=== PATIENT | female | born 1995 | race Caucasian/White ===

== ENCOUNTER 2016-08-20 03:03 | Emergency (ER) | payer OTHER ==
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
[2016-08-20] MEDS ORDERED: ACETAMINOPHEN ORAL SUSP 160 MG/5 ML CUP PO ONE (09:23)
[2016-08-20 12:49] VITALS: BP 124/64; PULSE 109; RESP 16; TEMP 98.1
== END 2016-08-20 12:49 | disposition home or self-care (01) ==
LOC: EC 03:03
DX: S62.660A Nondisplaced fracture of distal phalanx of right index finger, initial encounter for closed fracture (principal); F43.20 Adjustment disorder, unspecified; F32.9 Major depressive disorder, single episode, unspecified; W23.0XXA Caught, crushed, jammed, or pinched between moving objects, initial encounter; F41.9 Anxiety disorder, unspecified; Z79.51 Long term (current) use of inhaled steroids; Z79.3 Long term (current) use of hormonal contraceptives; Z79.899 Other long term (current) drug therapy
CPT/HCPCS: 80306; 81025; 82075; 99285

== ENCOUNTER 2017-10-04 08:26 | Emergency (ER) | payer OTHER ==
[2017-10-04 08:36] VITALS: RESP 20; TEMP 98.8
[2017-10-04] MEDS ORDERED: RX INFO: IV CONTRAST WAS GIVEN 1 EACH MISC MISCELLANE PRN (09:04)
[2017-10-04 09:39] LABS: ALT 23 U/L (9-52); AST 25 U/L (14-36); Albumin 3.8 g/dL (3.5-5.0); Alkaline Phosphatase 73 U/L (38-126); Anion Gap 12 mmol/L; Blood Urea Nitrogen 10 mg/dL (7-17); Calcium 9.3 mg/dL (8.4-10.2); Carbon Dioxide 23 mmol/L (22-30); Chloride 107 mmol/L (98-107); Glucose 95 mg/dL (74-99); Potassium 3.5 mmol/L (3.5-5.1); Sodium 142 mmol/L (137-145); Total Bilirubin 0.9 mg/dL (0.2-1.3); Total Protein 6.2 g/dL (6.3-8.2)
[2017-10-04 09:43] LABS: Basophils % (A) 1 %; Eosinophils # (A) 0.1 k/uL (0-0.7); Eosinophils % (A) 2 %; HCT 39.4 % (34.0-46.0); HGB 14.6 gm/dL (11.4-16.0); Hyperchromasia Slight; Lymphocytes # (A) 3.6 k/uL (1.0-4.8); Lymphocytes % (A) 47 %; MCH 31.2 pg (25.0-35.0); MCHC 37.1 g/dL (31.0-37.0); MCV 84.1 fL (80.0-100.0); Mean Platelet Volume 8.2; Monocytes # (A) 0.4 k/uL (0-1.0); Monocytes % (A) 6 %; Neutrophils # (A) 3.3 k/uL (1.3-7.7); Neutrophils % (A) 43 %; Platelet Count 258 k/uL (150-450); RBC 4.68 m/uL (3.80-5.40); RDW 11.8 % (11.5-15.5); WBC 7.6 k/uL (3.8-10.6)
[2017-10-04 09:44] LABS: Appearance,Urine Clear (Clear); Bilirubin,Urine Negative (Negative); Blood,Urine Negative (Negative); Color,Urine Light Yellow; Glucose,Urine (UA) Negative (Negative); Ketones,Urine Negative (Negative); Leukocyte Esterase,Urine Trace (Negative); Mucus,Urine Rare /hpf; Nitrite,Urine Negative (Negative); PH, Urine 6.5 (5.0-8.0); Protein,Urine Negative (Negative); RBC,Urine 1 /hpf (0-5); Specific Gravity,Urine 1.014 (1.001-1.035); Squamous Epithelial Cell,Urine 1 /hpf (0-4); WBC,Urine 1 /hpf (0-5)
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
[2017-10-04 11:16] VITALS: BP 123/75; PULSE 89
== END 2017-10-04 11:16 | disposition home or self-care (01) ==
LOC: EC 08:26
DX: R07.89 Other chest pain (principal); R10.32 Left lower quadrant pain; Z79.899 Other long term (current) drug therapy; V47.5XXA Car driver injured in collision with fixed or stationary object in traffic accident, initial encounter; Y92.410 Unspecified street and highway as the place of occurrence of the external cause
CPT/HCPCS: 36415; 93005; 80053; 85025; 81001; 81025; 71260; 74177; 99284; Q9967

== ENCOUNTER 2018-08-04 16:21 | Emergency (ER) | payer OTHER ==
[2018-08-04] MEDS ORDERED: SODIUM CHLORIDE 0.9% 1,000 ML IV STA (16:57)
[2018-08-04 17:20] LABS: Basophils % (A) 0 %; Eosinophils # (A) 0.1 k/uL (0-0.7); Eosinophils % (A) 1 %; HCT 42.6 % (34.0-46.0); HGB 14.6 gm/dL (11.4-16.0); Lymphocytes # (A) 2.1 k/uL (1.0-4.8); Lymphocytes % (A) 29 %; MCH 30.7 pg (25.0-35.0); MCHC 34.3 g/dL (31.0-37.0); MCV 89.6 fL (80.0-100.0); Mean Platelet Volume 7.7; Monocytes # (A) 0.4 k/uL (0-1.0); Monocytes % (A) 5 %; Neutrophils # (A) 4.6 k/uL (1.3-7.7); Neutrophils % (A) 63 %; Platelet Count 249 k/uL (150-450); RBC 4.75 m/uL (3.80-5.40); RDW 12.7 % (11.5-15.5); WBC 7.3 k/uL (3.8-10.6)
[2018-08-04 17:36] LABS: ALT 25 U/L (9-52); AST 24 U/L (14-36); Albumin 4.3 g/dL (3.5-5.0); Alkaline Phosphatase 79 U/L (38-126); Amylase 46 U/L (30-110); Anion Gap 8 mmol/L; Blood Urea Nitrogen 10 mg/dL (7-17); Calcium 9.5 mg/dL (8.4-10.2); Carbon Dioxide 24 mmol/L (22-30); Chloride 105 mmol/L (98-107); Glucose 81 mg/dL (74-99); Lipase 66 U/L (23-300); Potassium 3.8 mmol/L (3.5-5.1); Sodium 137 mmol/L (137-145); Total Bilirubin 1.3 mg/dL (0.2-1.3); Total Protein 6.9 g/dL (6.3-8.2)
[2018-08-04 17:39] LABS: Appearance,Urine Clear (Clear); Bilirubin,Urine Negative (Negative); Blood,Urine Negative (Negative); Color,Urine Yellow; Glucose,Urine (UA) Negative (Negative); Ketones,Urine Trace (Negative); Leukocyte Esterase,Urine Trace (Negative); Mucus,Urine Few /hpf; Nitrite,Urine Negative (Negative); PH, Urine 6.5 (5.0-8.0); Protein,Urine Trace (Negative); Specific Gravity,Urine 1.021 (1.001-1.035); Squamous Epithelial Cell,Urine 2 /hpf (0-4); Urobilinogen,Urine <2.0 mg/dL (<2.0); WBC,Urine 1 /hpf (0-5)
--- NOTE | 2018-08-04 17:49 | ED ---
General Adult HPI - General Chief complaint: Abdominal Pain Stated complaint: rt sided abd pain Time Seen by Provider: 08/04/18 16:31 Source: patient, RN notes reviewed Mode of arrival: ambulatory Limitations: no limitations - History of Present Illness Initial comments: 23-year-old female presents to the emergency department or a chief complaint of lower abdominal pain times one week. Patient states this is mostly in the right lower quadrant. She states it is a sharp stabbing pain in nature that radiates into the abdomen. Patient states she did have 2 positive tests 2 months ago but since then has had negative tests. Patient denies any fevers or chills. Patient admits to nausea denies vomiting. Patient denies diarrhea. Patient states she is having normal bowel movements. Patient denies pain in the upper abdomen and states it is all in the right lower abdomen. Patient has no other complaints at this time including shortness of breath, chest pain, vomiting, headache, or visual changes. - Related Data Home Medications Medication Instructions Recorded Confirmed Dextroamphetamine/Amphetamine 20 mg PO TID 10/04/17 08/04/18 [Adderall] Ibuprofen [Motrin] 800 mg PO TID PRN 08/04/18 08/04/18 LORazepam [Ativan] 0.5 mg PO DAILY 08/04/18 08/04/18 Lurasidone [Latuda] 20 mg PO HS 08/04/18 08/04/18 Ondansetron HCl [Zofran] 8 mg PO TID PRN 08/04/18 08/04/18 Previous Rx's Medication Instructions Recorded Ondansetron [Zofran ODT] 4 mg PO Q8HR PRN #15 tab 08/04/18 Allergies Allergy/AdvReac Type Severity Reaction Status Date / Time No Known Allergies Allergy Verified 08/04/18 16:36 Review of Systems ROS Statement: Those systems with pertinent positive or pertinent negative responses have been documented in the HPI. ROS Other: All systems not noted in ROS Statement are negative. Past Medical History Past Medical History: No Reported History History of Any Multi-Drug Resistant Organisms: None Reported Additional Past Surgical History / Comment(s): orthopedic surgery on right foot Past Psychological History: Anxiety, Depression, PTSD Smoking Status: Never smoker Past Alcohol Use History: Occasional Past Drug Use History: None Reported General Exam Limitations: no limitations General appearance: alert, in no apparent distress Head exam: Present: atraumatic, normocephalic, normal inspection Eye exam: Present: normal appearance, PERRL, EOMI. Absent: scleral icterus, conjunctival injection, periorbital swelling ENT exam: Present: normal exam, mucous membranes moist Neck exam: Present: normal inspection, full ROM. Absent: tenderness, meningismus, lymphadenopathy Respiratory exam: Present: normal lung sounds bilaterally. Absent: respiratory distress, wheezes, rales, rhonchi, stridor Cardiovascular Exam: Present: regular rate, normal rhythm, normal heart sounds. Absent: systolic murmur, diastolic murmur, rubs, gallop, clicks GI/Abdominal exam: Present: soft, tenderness (Tenderness noted to the right lower quadrant, no guarding or rebound. No significant tenderness in the left lower quadrant or right upper quadrant, negative Driscoll sign), normal bowel sounds. Absent: distended, guarding, rebound, rigid External exam: Present: normal external exam. Absent: erythema, swelling, lesions, lacerations, ecchymosis Speculum exam: Present: normal speculum exam. Absent: erythema, vaginal discharge, cervical discharge, vaginal bleeding, foreign body By manual exam: Present: adnexal tenderness (minimal right adnexal tenderness). Absent: normal by manual exam, adnexal mass, uterine enlargement, uterine tenderness Neurological exam: Present: alert, oriented X3, CN II-XII intact Psychiatric exam: Present: normal affect, normal mood Course Vital Signs 08/04/18 08/04/18 16:24 18:18 Temperature 97.9 F 99.5 F Pulse Rate 95 105 H Respiratory 16 18 Rate Blood Pressure 153/86 132/86 O2 Sat by Pulse 99 99 Oximetry Medical Decision Making - Medical Decision Making 23-year-old female without any significant past medical history presents to the emergency department for right lower quadrant pain. Patient was sent in by primary care for evaluation. On exam patient has tenderness in the right lower quadrant without guarding. No right upper quadrant tenderness, negative Driscoll sign. Minimal left lower quadrant tenderness, negative Rovsing sign. Pelvic exam was done as I was unable to localize whether this was pelvic or abdominal pain as it is right lower quadrant. Patient did have some right adnexal tenderness so ultrasound was ordered which showed no adnexal mass or free fluid. No evidence of ovarian torsion. Gonorrhea and Chlamydia as well as Trichomonas were swabbed, currently pending. CBC CMP are unremarkable. HCG negative both quantitative and qualitative. Urine does not show any significant evidence of infection. Computed tomography scan was then ordered at this time to evaluate for appendicitis which was negative. Discussed with patient that at this time she does not have an appendicitis but if symptoms worsen to return to the emergency department. Discussed following up with her primary care as well. On reevaluation patient is having much better, nausea has resolved and pain has subsided. Patient is feeling well enough to go home. - Lab Data Result diagrams: 08/04/18 17:05 08/04/18 17:05 Lab Results 08/04/18 08/04/18 08/04/18 Range/Units 17:05 17:05 17:05 WBC 7.3 (3.8-10.6) k/uL RBC 4.75 (3.80-5.40) m/uL Hgb 14.6 (11.4-16.0) gm/dL Hct 42.6 (34.0-46.0) % MCV 89.6 (80.0-100.0) fL MCH 30.7 (25.0-35.0) pg MCHC 34.3 (31.0-37.0) g/dL RDW 12.7 (11.5-15.5) % Plt Count 249 (150-450) k/uL Neutrophils % 63 % Lymphocytes % 29 % Monocytes % 5 % Eosinophils % 1 % Basophils % 0 % Neutrophils # 4.6 (1.3-7.7) k/uL Lymphocytes # 2.1 (1.0-4.8) k/uL Monocytes # 0.4 (0-1.0) k/uL Eosinophils # 0.1 (0-0.7) k/uL Basophils # 0.0 (0-0.2) k/uL Sodium 137 (137-145) mmol/L Potassium 3.8 (3.5-5.1) mmol/L Chloride 105 (98-107) mmol/L Carbon Dioxide 24 (22-30) mmol/L Anion Gap 8 mmol/L BUN 10 (7-17) mg/dL Creatinine 0.63 (0.52-1.04) mg/dL Est GFR (CKD-EPI)AfAm >90 (>60 ml/min/1.73 sqM) Est GFR (CKD-EPI)NonAf >90 (>60 ml/min/1.73 sqM) Glucose 81 (74-99) mg/dL Calcium 9.5 (8.4-10.2) mg/dL Total Bilirubin 1.3 (0.2-1.3) mg/dL AST 24 (14-36) U/L ALT 25 (9-52) U/L Alkaline Phosphatase 79 (38-126) U/L Total Protein 6.9 (6.3-8.2) g/dL Albumin 4.3 (3.5-5.0) g/dL Amylase 46 (30-110) U/L Lipase 66 (23-300) U/L HCG, Quant <2.4 mIU/mL Urine Color Urine Appearance (Clear) Urine pH (5.0-8.0) Ur Specific [place] (1.001-1.035) Urine Protein (Negative) Urine Glucose (UA) (Negative) Urine Ketones (Negative) Urine Blood (Negative) Urine Nitrite (Negative) Urine Bilirubin (Negative) Urine Urobilinogen (<2.0) mg/dL Ur Leukocyte Esterase (Negative) Urine WBC (0-5) /hpf Ur Squamous Epith Cells (0-4) /hpf Urine Mucus (None) /hpf Urine HCG, Qual Not Detected (Not Detectd) Trichomonas Ag (Rapid) (Negative) 08/04/18 08/04/18 Range/Units 17:05 17:05 WBC (3.8-10.6) k/uL RBC (3.80-5.40) m/uL Hgb (11.4-16.0) gm/dL Hct (34.0-46.0) % MCV (80.0-100.0) fL MCH (25.0-35.0) pg MCHC (31.0-37.0) g/dL RDW (11.5-15.5) % Plt Count (150-450) k/uL Neutrophils % % Lymphocytes % % Monocytes % % Eosinophils % % Basophils % % Neutrophils # (1.3-7.7) k/uL Lymphocytes # (1.0-4.8) k/uL Monocytes # (0-1.0) k/uL Eosinophils # (0-0.7) k/uL Basophils # (0-0.2) k/uL Sodium (137-145) mmol/L Potassium (3.5-5.1) mmol/L Chloride (98-107) mmol/L Carbon Dioxide (22-30) mmol/L Anion Gap mmol/L BUN (7-17) mg/dL Creatinine (0.52-1.04) mg/dL Est GFR (CKD-EPI)AfAm (>60 ml/min/1.73 sqM) Est GFR (CKD-EPI)NonAf (>60 ml/min/1.73 sqM) Glucose (74-99) mg/dL Calcium (8.4-10.2) mg/dL Total Bilirubin (0.2-1.3) mg/dL AST (14-36) U/L ALT (9-52) U/L Alkaline Phosphatase (38-126) U/L Total Protein (6.3-8.2) g/dL Albumin (3.5-5.0) g/dL Amylase (30-110) U/L Lipase (23-300) U/L HCG, Quant mIU/mL Urine Color Yellow Urine Appearance Clear (Clear) Urine pH 6.5 (5.0-8.0) Ur Specific [place] 1.021 (1.001-1.035) Urine Protein Trace H (Negative) Urine Glucose (UA) Negative (Negative) Urine Ketones Trace H (Negative) Urine Blood Negative (Negative) Urine Nitrite Negative (Negative) Urine Bilirubin Negative (Negative) Urine Urobilinogen <2.0 (<2.0) mg/dL Ur Leukocyte Esterase Trace H (Negative) Urine WBC 1 (0-5) /hpf Ur Squamous Epith Cells 2 (0-4) /hpf Urine Mucus Few H (None) /hpf Urine HCG, Qual (Not Detectd) Trichomonas Ag (Rapid) Negative (Negative) Disposition Clinical Impression: Abdominal pain Disposition: HOME SELF-CARE Condition: Good Instructions (If sedation given, give patient instructions): Abdominal Pain (ED ) Additional Instructions: Please take Motrin and Tylenol for pain. Please follow-up with primary care in 1-2 days. Return here to the emergency department if you have any worsening symptoms Prescriptions: Ondansetron [Zofran ODT] 4 mg PO Q8HR PRN #15 tab PRN Reason: Nausea Is patient prescribed a controlled substance at d/c from ED?: No Referrals: Pamela Layton MD [Primary Care Provider] - 1-2 days Time of Disposition: 19:59
[2018-08-04 17:52] LABS: HCG,Quantitative Serum <2.4 mIU/mL
--- NOTE | 2018-08-04 18:04 | US ---
EXAMINATION TYPE: US transvaginal DATE OF EXAM: 08/04/2018 COMPARISON: CT CLINICAL HISTORY: Pain. RLQ pain TECHNIQUE: Transvaginal (TV). Date of LMP: 05/31/2018 EXAM MEASUREMENTS: Uterus: 6.6 x 2.3 x 3.5 cm Endometrial Stripe: 1.0 cm Right Ovary: 3.1 x 1.6 x 2.6 cm Left Ovary: 3.5 x 2.1 x 3.2 cm 1. Uterus: Anteverted wnl 2. Endometrium: measures 1.0 cm, patient has not had a cycle since May 2018 3. Right Ovary: wnl 4. Left Ovary: wnl Spectral, color and waveform doppler imaging shows good arterial and venous flow within the ovaries ; there is no evidence for ovarian torsion. 5. Bilateral Adnexa: wnl 6. Posterior cul-de-sac: no free fluid IMPRESSION: No adnexal mass or free fluid. No evidence of ovarian torsion.
[2018-08-04 18:19] VITALS: RESP 18
[2018-08-04] MEDS ORDERED: ONDANSETRON 4 MG/2 ML VIAL IVP STA (18:23)
[2018-08-04] MEDS ORDERED: KETOROLAC 30 MG/ML 1 ML VIAL IVP STA (18:23)
--- NOTE | 2018-08-04 18:51 | CT ---
EXAMINATION TYPE: CT abdomen pelvis w con DATE OF EXAM: 08/04/2018 COMPARISON: 10/04/2017 HISTORY: Right lower quadrant abdominal pain x1 week. CT DLP: 438.1 mGycm Automated exposure control for dose reduction was used. TECHNIQUE: Helical acquisition of images was performed from the lung bases through the pelvis. CONTRAST: Performed without Oral Contrast and with IV Contrast, patient injected with 100ml mL of Isovue 300. FINDINGS: Lung bases are clear. There is no pleural effusion. Heart size is normal. There is no pericardial eff usion. The stomach appears normal. Liver spleen pancreas gallbladder appear normal. Bile ducts are no t dilated. There is no adrenal mass. Kidneys have normal contrast opacification. There is no hydronep hrosis. Ureters are not dilated. Bladder distends smoothly. There is no inguinal hernia. There is no free fluid in the pelvis. Uterus is tilted to the left side. I see no pelvic mass. There is no mesenteric edema or adenopathy. Appendi x appears normal. Lumbar vertebra have normal spacing and alignment. Posterior elements are intact. The bony pelvis is intact. There is no compression fracture. IMPRESSION: NEGATIVE CT SCAN ABDOMEN AND PELVIS. NORMAL APPENDIX. APPENDIX IS MEDIAL AND POSTERIOR.
[2018-08-04] MEDS ORDERED: diphenhydrAMINE 50 MG/ML 1 ML VIAL IVP STA (19:14)
[2018-08-04] MEDS ORDERED: METOCLOPRAMIDE 5 MG/ML 2 ML VIAL IVP STA (19:14)
[2018-08-04 20:42] VITALS: BP 119/92; PULSE 101; TEMP 98.7
[2018-08-06 14:28] LABS: C. trachomatis,PCR Negative (Neg,Equiv); Chlamydia trachomatis Source Vagina
[2018-08-06 14:31] LABS: N. gonorrhoeae,PCR Negative (Neg,Equiv); Neisseria Source Vagina
== END 2018-08-04 20:41 | disposition home or self-care (01) ==
LOC: EC 16:21
DX: R10.31 Right lower quadrant pain (principal); R11.0 Nausea; Z32.02 Encounter for pregnancy test, result negative; F32.9 Major depressive disorder, single episode, unspecified; F41.9 Anxiety disorder, unspecified; Z79.899 Other long term (current) drug therapy
CPT/HCPCS: 99284; 96374; 96375 ×3; 96361; 36415; 80053; 82150; 83690; 85025; 81001; 81025; 84702; 87808; 87491; 87591; 93975; 76830; 74177; J1200; J2765; J2405; J1885; Q9967

== ENCOUNTER 2018-08-31 20:06 | Emergency (ER) | payer OTHER ==
[2018-08-31] MEDS ORDERED: SODIUM CHLORIDE 0.9% 500 ML 500 ML IV STA (20:56)
[2018-08-31] MEDS ORDERED: ONDANSETRON 4 MG/2 ML VIAL IVP STA (20:56)
--- NOTE | 2018-08-31 21:26 | ED ---
General Adult HPI - General Chief complaint: Headache Stated complaint: Nausea, headache Time Seen by Provider: 08/31/18 20:35 Source: patient, family, RN notes reviewed, old records reviewed Mode of arrival: ambulatory Limitations: no limitations - History of Present Illness Initial comments: Chief complaint and history of present illness a 23-year-old female who is coming here from work. The patient reports starting having a headache about 3 hours ago. She states that she had low-grade fever at home and just generally doesn't feel well. She describes as a pressure for the back of her head. Mild meningeal irritation when she flexes her neck. No significant increased with full meningeal stretching when she curls up into a ball. Mild nausea no vomiting. Patient denies being . We did discuss viral meningitis etc. patient will receive IV Rocephin 2 g. Due to her complaints a LP was explained and the patient agrees to it. - Related Data Home Medications Medication Instructions Recorded Confirmed Dextroamphetamine/Amphetamine 20 mg PO TID 10/04/17 08/31/18 [Adderall] Ibuprofen [Motrin] 800 mg PO TID PRN 08/04/18 08/31/18 LORazepam [Ativan] 0.5 mg PO DAILY 08/04/18 08/31/18 Lurasidone [Latuda] 20 mg PO HS 08/04/18 08/31/18 Aspirin 325 mg PO DAILY PRN 08/31/18 08/31/18 Ranitidine HCl [Zantac] 150 mg PO BID PRN 08/31/18 08/31/18 Previous Rx's Medication Instructions Recorded Ondansetron [Zofran ODT] 4 mg PO Q8HR PRN #15 tab 08/04/18 Allergies Allergy/AdvReac Type Severity Reaction Status Date / Time No Known Allergies Allergy Verified 08/31/18 20:56 Review of Systems ROS Statement: Those systems with pertinent positive or pertinent negative responses have been documented in the HPI. Review of systems. Patient complains of a pressure to the back of her head and goes up to the top of her head. No photophobia. Mild discomfort with neck flexion. No chest pain shortness breath is complaining nausea no vomiting has had soft stool. No rashes. Denies any injuries. No sickaroundher.Allsystemsreviewed.No Pastmedicalproblemspersonalitydisorder.Otherwisenoothermedicalproblem.Shehadfoot surgery.Familyhistoryagrandmotherhadbladdercancer.PatientdeniesALLERGIES.Nonsmok er.Drinksalcoholsocially.Shedidgetaflushotlately. ROS Other: All systems not noted in ROS Statement are negative. Past Medical History Past Medical History: No Reported History Additional Past Medical History / Comment(s): personality disorder History of Any Multi-Drug Resistant Organisms: None Reported Past Surgical History: Orthopedic Surgery Additional Past Surgical History / Comment(s): orthopedic surgery on right foot Past Psychological History: ADD/ADHD, Anxiety, Depression, PTSD Smoking Status: Never smoker Past Alcohol Use History: Occasional Past Drug Use History: None Reported General Exam - General Exam Comments Initial Comments: General: The patient is awake and alert, here because of a low-grade temperature earlier today and a posterior headache that feels like pressure. Also complaining of nausea but no vomiting. Vital signs temperature 97.8 pulse 86 respiratory rate 15 pulse ox on percent room air blood pressure 146/95 l. Eye: Pupils are equal, round and reactive to light, extra-ocular movements are intact ; there is normal conjunctiva bilaterally. No signs of icterus. Ears, nose, mouth and throat: There are moist mucous membranes and no oral lesions. Neck: Patient complains of discomfort to the posterior scalp and to the upper nape of her neck. She reports with chin to chest that the discomfort slightly worse.. Cardiovascular: There is a regular rate and rhythm. No murmur, rub or gallop is appreciated. Respiratory: Lungs are clear to auscultation, respirations are non-labored, breath sounds are equal. No wheezes, stridor, rales, or rhonchi. Gastrointestinal: Soft, non-distended, non-tender abdomen without masses or organomegaly noted. There is no rebound or guarding present. No CVA tenderness. Bowel sounds are unremarkable. Back: There is no tenderness to palpation in the midline. There is no obvious deformity. No rashes noted. Musculoskeletal: Normal ROM, no tenderness, There is no pedal edema. There is no calf tenderness or swelling. Sensation intact. Pulses equal bilaterally 2+. Neurological: CN II-XII intact, There are no obvious motor or sensory deficits. Coordination appears grossly intact. Speech is normal. No focal or lateralizing findings. Skin: Skin is warm and dry and no rashes or lesions are noted. Psychiatric: Past history significant for personality disorder, as reported on previous chart. Limitations: no limitations Course Vital Signs 08/31/18 08/31/18 08/31/18 20:13 23:04 23:27 Temperature 97.8 F Pulse Rate 86 88 77 Respiratory 15 20 20 Rate Blood Pressure 146/95 123/56 118/83 O2 Sat by Pulse 100 99 99 Oximetry Procedures - Lumbar Puncture Consent Obtained: written consent Indication for Procedure: headache, fever work up Patient Position: sitting upright/leaning forward Skin Prep: Povidone-Iodine 1%, 0.5% Chlorhexidine/Alcohol Local Anesthetic Used: Lidocaine 1% Spinal Needle Gauge: 22G Spinal Needle Length: 1.5in Interspace Used: L4-L5 Fluid Initially Obtained: clear Complications: none Patient Tolerated Procedure: well, no complications Additional Comments: The first drop or 2 of the LP was slightly pink. The rest of the samples were clear. These were labeled tubes 1,2, Dr. Collins 3 and 4 and sent to the laboratory. Patient was then laid flat. Given IV Reglan. Continued hydration. Medical Decision Making - Medical Decision Making Medical decision making; is a 23-year-old female presents emergency room with a headache for 3 hours low-grade fever. Mild meningeal irritation with neck flexion. Denies any trauma. Mild nausea no vomiting. No other complaints this time. The patient's labs show white count of 7 hemoglobin 15 hematocrit of 46. Potassium 4.8. BUN 9 creatinine 0.7 with a GFR greater than 90. AST mildly elevated at 42. Urine test is negative. Patient had CAT scan of the brain which was reviewed by radiologist and the entire report was reviewed his final impression is unremarkable CT brain is read by Dr. Cortes. Patient agrees to do an LP because of her symptoms the possibility of a bleed versus meningitis. We discussed cranial bleed, viral and bacterial meningitis. The patient was started on Rocephin 2 g just several minutes prior to the LP being performed. Lumbar tap showed tube #4 to be clear in color 1 red 1 nucleated, glucose 47 protein 23. Gram stain reported by laboratory showing no organisms. The patient continues to rest IV hydration and IV Reglan and the patient's been laid flat for the past 25 minutes. At this time the patient will be allowed to rest for another hour. She will then be discharged home to the care of her significant other. The patient be placed on Zofran for nausea. Off work for the next 48 hours. Advised to follow -up with family physician and/or return to this emergency room as needed. - Lab Data Result diagrams: 08/31/18 21:35 08/31/18 21:35 Lab Results 08/31/18 08/31/18 08/31/18 Range/Units 21:30 21:35 21:35 WBC 7.7 (3.8-10.6) k/uL RBC 5.09 (3.80-5.40) m/uL Hgb 15.9 (11.4-16.0) gm/dL Hct 46.6 H (34.0-46.0) % MCV 91.6 (80.0-100.0) fL MCH 31.2 (25.0-35.0) pg MCHC 34.0 (31.0-37.0) g/dL RDW 12.7 (11.5-15.5) % Plt Count 204 (150-450) k/uL Neutrophils % 75 % Lymphocytes % 19 % Monocytes % 3 % Eosinophils % 1 % Basophils % 1 % Neutrophils # 5.8 (1.3-7.7) k/uL Lymphocytes # 1.5 (1.0-4.8) k/uL Monocytes # 0.3 (0-1.0) k/uL Eosinophils # 0.1 (0-0.7) k/uL Basophils # 0.0 (0-0.2) k/uL Sodium 139 (137-145) mmol/L Potassium 4.8 (3.5-5.1) mmol/L Chloride 105 (98-107) mmol/L Carbon Dioxide 22 (22-30) mmol/L Anion Gap 12 mmol/L BUN 9 (7-17) mg/dL Creatinine 0.71 (0.52-1.04) mg/dL Est GFR (CKD-EPI)AfAm >90 (>60 ml/min/1.73 sqM) Est GFR (CKD-EPI)NonAf >90 (>60 ml/min/1.73 sqM) Glucose 74 (74-99) mg/dL Calcium 10.0 (8.4-10.2) mg/dL Total Bilirubin 1.2 (0.2-1.3) mg/dL AST 42 H (14-36) U/L ALT 27 (9-52) U/L Alkaline Phosphatase 92 (38-126) U/L Total Protein 8.5 H (6.3-8.2) g/dL Albumin 5.2 H (3.5-5.0) g/dL Urine HCG, Qual Not Detected (Not Detectd) CSF Tube Number CSF Volume CSF Appearance CSF Color CSF RBC (0-10) u/L CSF Tot Nucleated Cells (0-5) u/L CSF Glucose (40-70) mg/dL CSF Total Protein (12-60) mg/dL 08/31/18 Range/Units 22:50 WBC (3.8-10.6) k/uL RBC (3.80-5.40) m/uL Hgb (11.4-16.0) gm/dL Hct (34.0-46.0) % MCV (80.0-100.0) fL MCH (25.0-35.0) pg MCHC (31.0-37.0) g/dL RDW (11.5-15.5) % Plt Count (150-450) k/uL Neutrophils % % Lymphocytes % % Monocytes % % Eosinophils % % Basophils % % Neutrophils # (1.3-7.7) k/uL Lymphocytes # (1.0-4.8) k/uL Monocytes # (0-1.0) k/uL Eosinophils # (0-0.7) k/uL Basophils # (0-0.2) k/uL Sodium (137-145) mmol/L Potassium (3.5-5.1) mmol/L Chloride (98-107) mmol/L Carbon Dioxide (22-30) mmol/L Anion Gap mmol/L BUN (7-17) mg/dL Creatinine (0.52-1.04) mg/dL Est GFR (CKD-EPI)AfAm (>60 ml/min/1.73 sqM) Est GFR (CKD-EPI)NonAf (>60 ml/min/1.73 sqM) Glucose (74-99) mg/dL Calcium (8.4-10.2) mg/dL Total Bilirubin (0.2-1.3) mg/dL AST (14-36) U/L ALT (9-52) U/L Alkaline Phosphatase (38-126) U/L Total Protein (6.3-8.2) g/dL Albumin (3.5-5.0) g/dL Urine HCG, Qual (Not Detectd) CSF Tube Number 4 CSF Volume 2 CSF Appearance Clear CSF Color Colorless CSF RBC 1 (0-10) u/L CSF Tot Nucleated Cells 1 (0-5) u/L CSF Glucose 47 (40-70) mg/dL CSF Total Protein 23 (12-60) mg/dL Disposition Clinical Impression: Head pain cephalgia Disposition: HOME SELF-CARE Condition: Fair Instructions (If sedation given, give patient instructions): Acute Headache (ED ) Is patient prescribed a controlled substance at d/c from ED?: No Referrals: Pamela Layton MD [Primary Care Provider] - 1-2 days Time of Disposition: 00:42
[2018-08-31 22:12] LABS: Basophils % (A) 1 %; Eosinophils # (A) 0.1 k/uL (0-0.7); Eosinophils % (A) 1 %; HCT 46.6 % (34.0-46.0); HGB 15.9 gm/dL (11.4-16.0); Lymphocytes # (A) 1.5 k/uL (1.0-4.8); Lymphocytes % (A) 19 %; MCH 31.2 pg (25.0-35.0); MCV 91.6 fL (80.0-100.0); Mean Platelet Volume 8.6; Monocytes # (A) 0.3 k/uL (0-1.0); Monocytes % (A) 3 %; Neutrophils # (A) 5.8 k/uL (1.3-7.7); Neutrophils % (A) 75 %; Platelet Count 204 k/uL (150-450); RBC 5.09 m/uL (3.80-5.40); RDW 12.7 % (11.5-15.5); WBC 7.7 k/uL (3.8-10.6)
[2018-08-31 22:23] LABS: ALT 27 U/L (9-52); AST 42 U/L (14-36); Albumin 5.2 g/dL (3.5-5.0); Alkaline Phosphatase 92 U/L (38-126); Anion Gap 12 mmol/L; Blood Urea Nitrogen 9 mg/dL (7-17); Carbon Dioxide 22 mmol/L (22-30); Chloride 105 mmol/L (98-107); Glucose 74 mg/dL (74-99); Sodium 139 mmol/L (137-145); Total Bilirubin 1.2 mg/dL (0.2-1.3); Total Protein 8.5 g/dL (6.3-8.2)
[2018-08-31 22:30] LABS: Potassium 4.8 mmol/L (3.5-5.1)
--- NOTE | 2018-08-31 22:43 | CT ---
EXAM: CT Head Without Intravenous Contrast CLINICAL HISTORY: Posterior headache TECHNIQUE: Axial computed tomography images of the head/brain without intravenous contrast. CTDI is 49.2 mGy and DLP is 1086.4 mGy-cm. This CT exam was performed using one or more of the following dose reduction techniques: automated exposure control, adjustment of the mA and/or kV according to patient size, and/or use of iterative reconstruction technique. COMPARISON: No relevant prior studies available. FINDINGS: Brain: Unremarkable. No hemorrhage. No significant white matter disease. No edema. Ventricles: Unremarkable. No ventriculomegaly. Bones/joints: Unremarkable. No acute fracture. Soft tissues: Unremarkable. Sinuses: Unremarkable as visualized. No acute sinusitis. Mastoid air cells: Unremarkable as visualized. No mastoid effusion. IMPRESSION: Unremarkable CT brain
[2018-08-31] MEDS ORDERED: METOCLOPRAMIDE 5 MG/ML 2 ML VIAL IVP STA (23:11)
[2018-08-31 23:52] LABS: Appearance,CSF Clear; CSF Tube Number 4
[2018-08-31 23:53] LABS: CSF Tube Volume 2; Nucleated Cells, CSF 1 u/L (0-5); Red Blood Cell,CSF 1 u/L (0-10)
[2018-08-31 23:54] LABS: Glucose,CSF 47 mg/dL (40-70); Total Protein,CSF 23 mg/dL (12-60)
[2018-09-01 01:43] VITALS: BP 118/91; PULSE 99; RESP 18; TEMP 99
== END 2018-09-01 01:42 | disposition home or self-care (01) ==
LOC: EC 20:06
DX: R51 Headache (principal); R11.0 Nausea; R74.8 Abnormal levels of other serum enzymes; F60.9 Personality disorder, unspecified; F90.9 Attention-deficit hyperactivity disorder, unspecified type; F32.9 Major depressive disorder, single episode, unspecified; F43.10 Post-traumatic stress disorder, unspecified; Z79.899 Other long term (current) drug therapy
CPT/HCPCS: 36415; 84157; 80053; 82945; 85025; 89050; 81025; 87040; 87070; 87205; 70450; 99284; 96365; 96375 ×2; J2765; J2405; J0696

== ENCOUNTER 2018-09-02 22:06 | Observation (INO) | payer OTHER ==
[2018-09-02] MEDS ORDERED: diphenhydrAMINE 50 MG/ML 1 ML VIAL IVP STA (22:31)
[2018-09-02] MEDS ORDERED: SODIUM CHLORIDE 0.9% 1,000 ML IV ONE (22:31)
[2018-09-02] MEDS ORDERED: METOCLOPRAMIDE 5 MG/ML 2 ML VIAL IVP STA (22:31)
--- NOTE | 2018-09-02 22:37 | ED ---
General Adult HPI - General Chief complaint: Headache Stated complaint: head/neck pain Time Seen by Provider: 09/02/18 22:19 Source: patient Mode of arrival: ambulatory Limitations: no limitations - History of Present Illness Initial comments: 20-year-old female presenting with pressure-like occipital headache that began 3 days prior, has been accompanied by intermittent hand numbness, is radiating down towards her neck, and is not alleviated with anything. Patient states she was seen here on August [address] head and lumbar puncture both of which were negative for acute process. She states since then her pain has continued and is worsening. She has been taking Motrin 800 mg without relief. She denies vision changes. Denies trauma. Denies history of headaches or similar symptoms. - Related Data Home Medications Medication Instructions Recorded Confirmed Dextroamphetamine/Amphetamine 20 mg PO TID 10/04/17 08/31/18 [Adderall] Ibuprofen [Motrin] 800 mg PO TID PRN 08/04/18 08/31/18 LORazepam [Ativan] 0.5 mg PO DAILY 08/04/18 08/31/18 Lurasidone [Latuda] 20 mg PO HS 08/04/18 08/31/18 Aspirin 325 mg PO DAILY PRN 08/31/18 08/31/18 Ranitidine HCl [Zantac] 150 mg PO BID PRN 08/31/18 08/31/18 Previous Rx's Medication Instructions Recorded Ondansetron [Zofran ODT] 4 mg PO Q8HR PRN #15 tab 08/04/18 Ondansetron Odt [Zofran ODT] 4 mg PO Q8HR PRN #5 tab 09/01/18 Allergies Allergy/AdvReac Type Severity Reaction Status Date / Time No Known Allergies Allergy Verified 08/31/18 20:56 Review of Systems ROS Statement: Those systems with pertinent positive or pertinent negative responses have been documented in the HPI. Review of Systems Constitutional: Denies fever, chills Eyes: Denies change in vision, Denies pain Ears, nose, mouth, throat: Positive headaches, Denies sore throat Cardiovascular: Denies chest pain. Denies palpitations Respiratory: Denies shortness of breath, Denies cough Gastrointestinal: Denies abdominal pain. Denies nausea, vomiting, diarrhea. Genitourinary: Denies hematuria, Denies infections Musculoskeletal: Denies pain, Denies swelling Integumentary: Denies rash Neurological: Positive headache, Denies focal weakness, Positive hand numbness Psychiatric: Denies anxiety, Denies depression Hematologic/Lymphatic: Denies easy bleeding or bruising ROS Other: All systems not noted in ROS Statement are negative. Past Medical History Past Medical History: No Reported History Additional Past Medical History / Comment(s): personality disorder History of Any Multi-Drug Resistant Organisms: None Reported Past Surgical History: Orthopedic Surgery Additional Past Surgical History / Comment(s): orthopedic surgery on right foot Past Psychological History: ADD/ADHD, Anxiety, Depression, PTSD Smoking Status: Never smoker Past Alcohol Use History: Occasional Past Drug Use History: None Reported General Exam - General Exam Comments Initial Comments: General: Awake, alert, No acute Distress. Tearful. HENT: Normocephalic. Atraumatic Eyes: PERRL. EOMI. No scleral icterus. No injected conjunctiva Neck: tenderness to midline cervical spine. No hypertonicity. Pain exacerbated by any ROM. Chest/Lungs: Clear to auscultation bilaterally. No wheezing, rhonchi, or rales Cardiac: Regular rate, rhythm. No murmurs or rubs Abdomen/GI: Soft, nontender, nondistended. No rebound, guarding, or rigidity. Musculoskeletal: Full ROM Skin: Warm, dry, intact Neurologic: A/Ox3, no weakness, no sensory deficit, no abnormal gait, no coordination deficit. C5-t1 sensation intact bilaterally. 5/5 strenghth in BUE Limitations: no limitations Course Vital Signs 09/02/18 22:08 Temperature 98.0 F Pulse Rate 98 Respiratory 16 Rate Blood Pressure 139/98 O2 Sat by Pulse 100 Oximetry Medical Decision Making - Medical Decision Making 23-year-old female presenting with headache and neck pain. Initial exam the patient is awake alert and uncomfortable appearing. VSS. Patient was seen here on 09/[address] head and lumbar puncture which was negative for acute process. I reviewed her cultures which were also negative. The patient continues to have severe pain and states that she has been having intermittent numbness in her hands. On exam the patient has no hypertonicity insistent with a muscle spasm. She is neurologically intact on exam. She continues to have pain even after medications of been administered. This time the patient requires observation for MRI in the morning. I discussed this with patient was agreeable. She does have an umbilical piercing that will need to be removed prior to the x-ray but denies any history of claustrophobia or other metals. Patient is unable to swallow pills and therefore liquid medication has been ordered. - Lab Data Result diagrams: 09/02/18 22:45 09/02/18 22:45 Lab Results 09/02/18 09/02/18 09/02/18 Range/Units 22:45 22:45 22:45 WBC 5.8 (3.8-10.6) k/uL RBC 4.81 (3.80-5.40) m/uL Hgb 15.2 (11.4-16.0) gm/dL Hct 44.4 (34.0-46.0) % MCV 92.4 (80.0-100.0) fL MCH 31.6 (25.0-35.0) pg MCHC 34.2 (31.0-37.0) g/dL RDW 12.9 (11.5-15.5) % Plt Count 186 (150-450) k/uL Neutrophils % 63 % Lymphocytes % 28 % Monocytes % 6 % Eosinophils % 2 % Basophils % 1 % Neutrophils # 3.6 (1.3-7.7) k/uL Lymphocytes # 1.6 (1.0-4.8) k/uL Monocytes # 0.3 (0-1.0) k/uL Eosinophils # 0.1 (0-0.7) k/uL Basophils # 0.0 (0-0.2) k/uL Sodium 139 (137-145) mmol/L Potassium 4.0 (3.5-5.1) mmol/L Chloride 108 H (98-107) mmol/L Carbon Dioxide 24 (22-30) mmol/L Anion Gap 7 mmol/L BUN 6 L (7-17) mg/dL Creatinine 0.71 (0.52-1.04) mg/dL Est GFR (CKD-EPI)AfAm >90 (>60 ml/min/1.73 sqM) Est GFR (CKD-EPI)NonAf >90 (>60 ml/min/1.73 sqM) Glucose 88 (74-99) mg/dL Calcium 9.5 (8.4-10.2) mg/dL Urine HCG, Qual Not Detected (Not Detectd) Disposition Clinical Impression: Intractable pain, Intractable headache Disposition: ADMITTED IP TO THIS [facility] Referrals: Pamela Layton MD [Primary Care Provider] - 1-2 days Decision to Admit Reason: Admit from EC Decision Date: 09/03/18 Decision Time: 00:22
[2018-09-02 23:04] LABS: Basophils % (A) 1 %; Eosinophils # (A) 0.1 k/uL (0-0.7); Eosinophils % (A) 2 %; HCT 44.4 % (34.0-46.0); HGB 15.2 gm/dL (11.4-16.0); Lymphocytes # (A) 1.6 k/uL (1.0-4.8); Lymphocytes % (A) 28 %; MCH 31.6 pg (25.0-35.0); MCHC 34.2 g/dL (31.0-37.0); MCV 92.4 fL (80.0-100.0); Mean Platelet Volume 8.3; Monocytes # (A) 0.3 k/uL (0-1.0); Monocytes % (A) 6 %; Neutrophils # (A) 3.6 k/uL (1.3-7.7); Neutrophils % (A) 63 %; Platelet Count 186 k/uL (150-450); RBC 4.81 m/uL (3.80-5.40); RDW 12.9 % (11.5-15.5); WBC 5.8 k/uL (3.8-10.6)
[2018-09-02 23:14] LABS: Anion Gap 7 mmol/L; Blood Urea Nitrogen 6 mg/dL (7-17); Calcium 9.5 mg/dL (8.4-10.2); Carbon Dioxide 24 mmol/L (22-30); Chloride 108 mmol/L (98-107); Glucose 88 mg/dL (74-99); Sodium 139 mmol/L (137-145)
[2018-09-02] MEDS: ACETAMINOPHEN TAB 325 MG TAB PO STA ×2 (23:37→23:45)
[2018-09-02] MEDS ORDERED: ACETAMINOPHEN ORAL SUSP 160 MG/5 ML CUP PO ONE (23:41)
--- NOTE | 2018-09-02 23:59 | CT ---
EXAM: CT Cervical Spine Without Intravenous Contrast CLINICAL HISTORY: ITS.REASON CT Reason: Pain TECHNIQUE: Axial computed tomography images of the cervical spine without intravenous contrast. CTDI is 6.6 mGy and DLP is 179.9 mGy-cm. This CT exam was performed using one or more of the following dose reduction techniques: automated exposure control, adjustment of the mA and/or kV according to patient size, and/or use of iterative reconstruction technique. COMPARISON: No relevant prior studies available. FINDINGS: Vertebrae: Unremarkable. No acute fracture. Discs/spinal canal/neural foramina: No acute findings. No spinal canal stenosis. Soft tissues: Unremarkable. IMPRESSION: Normal cervical spine CT.
[2018-09-03] MEDS ORDERED: NALOXONE 0.4 MG/ML 1 ML VIAL IV PRN (00:09)
[2018-09-03] MEDS ORDERED: ACETAMINOPHEN ORAL SUSP 160 MG/5 ML CUP PO PRN (00:16)
[2018-09-03] MEDS: HYDROcodone/APAP 15 ML SOLUTION PO PRN ×2 (05:39→19:44)
[2018-09-03] MEDS: MORPHINE SULFATE 4 MG/ML SYRINGE IV PRN ×2 (08:09→16:58)
[2018-09-03] MEDS ORDERED: FAMOTIDINE 20 MG TAB PO PRN (14:51)
[2018-09-03] MEDS ORDERED: IBUPROFEN 800 MG TAB PO PRN (14:51)
[2018-09-03] MEDS ORDERED: CYCLOBENZAPRINE 5 MG TAB PO STA (14:54)
[2018-09-03] MEDS: KETOROLAC 30 MG/ML 1 ML VIAL IVP SCH ×2 (18:05→21:47)
[2018-09-03] MEDS: PATIENT'S OWN (Dextroamphetamine/Amphetamine [Adderall] 20 MG) PO SCH (19:46)
[2018-09-03] MEDS: LURASIDONE 20 MG TAB PO SCH (21:47)
--- NOTE | 2018-09-03 22:45 | P.HPIM ---
History of Present Illness H&P Date: 09/03/18 Chief Complaint: Neck pain Patient is a 23-year-old female with a known history of asthma, personality disorder, ADD/ADHD, anxiety/depression and PTSD came to ER with complaints of neck pain mainly in the lower part of the neck. Patient says that her symptoms began with headache about 3 days ago along with neck pain and intermittent numbness and tingling sensation along the right upper extremity. Pain was not relieved during last 2 days and patient came to ER for evaluation. Patient states she was seen here on August [address] head and lumbar puncture both of which were negative for acute process. She states since then her pain has continued and is worsening. She has been taking Motrin 800 mg without relief. She denies blurring of vision and photophobia. Denied lower extremity weakness or upper extremity weakness.. Denies trauma. Denies history of headaches . Patient says that her new job includes lifting heavy boxes. Otherwise denied any injury or muscle stretch recently. No fever no chills. No chest pain or shortness of breath. CT cervical spine was normal in the ER. MRI of the cervical spine was ordered. Review of Systems Constitutional: Patient denies any fever or chills . No generalized weakness or weight loss. Abdomen: Patient denied nausea vomiting and diarrhea and abdominal pain. Cardiovascular: Patient denies any chest pain or short of breath no palpitations. Respiratory: patient denied any cough is from production. No shortness of breath Neurologic: Patient denied any numbness or tingling headache. Musculoskeletal: Patient does have neck pain and intermittent tingling sensation along the right upper extremity. Skin: Negative Psychiatric: Negative Endocrine: No heat or cold intolerance. No recent weight gain. Genitourinary: No dysuria or hematuria. All other 14 point ROS negative except the above Past Medical History Past Medical History: Asthma Additional Past Medical History / Comment(s): personality disorder History of Any Multi-Drug Resistant Organisms: None Reported Past Surgical History: Orthopedic Surgery Additional Past Surgical History / Comment(s): orthopedic surgery on right foot Past Anesthesia/Blood Transfusion Reactions: No Reported Reaction Past Psychological History: ADD/ADHD, Anxiety, Depression, PTSD Additional Psychological History / Comment(s): borderline personality disorder Smoking Status: Never smoker Past Alcohol Use History: Occasional Past Drug Use History: None Reported - Past Family History Mother Family Medical History: Asthma Additional Family Medical History / Comment(s): ovarian cysts Father Family Medical History: Unable to Obtain Medications and Allergies Home Medications Medication Instructions Recorded Confirmed Type Dextroamphetamine/Amphetamine 20 mg PO TID 10/04/17 09/03/18 History [Adderall] Ibuprofen [Motrin] 800 mg PO TID PRN 08/04/18 09/03/18 History LORazepam [Ativan] 0.5 mg PO DAILY 08/04/18 09/03/18 History Lurasidone [Latuda] 20 mg PO HS 08/04/18 09/03/18 History Ranitidine HCl [Zantac] 150 mg PO BID PRN 08/31/18 09/03/18 History Ondansetron Odt [Zofran ODT] 4 mg PO Q8HR PRN #5 tab 09/01/18 09/03/18 Rx Levocetirizine Dihydrochloride 5 mg PO DAILY 09/03/18 09/03/18 History [Xyzal] Allergies Allergy/AdvReac Type Severity Reaction Status Date / Time No Known Allergies Allergy Verified 08/31/18 20:56 Physical Exam Vitals: Vital Signs Temp Pulse Pulse Resp BP BP Pulse Ox 09/03/18 07:00 98.0 F 90 17 134/96 100 09/03/18 01:00 98.3 F 85 14 116/81 99 09/03/18 00:37 98.2 F 91 14 112/82 100 09/02/18 22:08 98.0 F 98 16 139/98 100 Intake and Output 09/02/18 09/03/18 09/03/18 22:59 06:59 14:59 Intake Total 100 Balance 100 Intake: Oral 100 Other: Voiding Method Toilet Weight 42.184 kg PHYSICAL EXAMINATION: Patient is lying in the bed comfortably, no acute distress, awake alert and oriented.. HEENT: Normocephalic. Decreased neck movement due to pain.. Pupils reactive. Nostrils clear. Oral cavity is moist. Ears reveal no drainage. Neck reveals no JVD, carotid bruits, or thyromegaly. CHEST EXAMINATION: Trachea is central. Symmetrical expansion. Lung rodriguez clear to auscultation and percussion. CARDIAC: Normal S1, S2 with no gallops. No murmurs ABDOMEN: Soft. Bowel sounds normal. No organomegaly. No abdominal bruits. Extremities: reveal no edema. No clubbing or cyanosis Neurologically awake, alert, oriented x3 with well-coordinated movements. No focal deficits noted Skin: No rash or skin lesions. Psychiatric: Coperative. Nonsuicidal Musculoskeletal: No joint swelling or deformity. Normal range of motion. Results CBC & Chem 7: 09/02/18 22:45 09/02/18 22:45 Labs: Abnormal Lab Results - Last 24 Hours (Table) 09/02/18 Range/Units 22:45 Chloride 108 H (98-107) mmol/L BUN 6 L (7-17) mg/dL Thrombosis Risk Factor Assmnt - DVT/VTE Prophylaxis DVT/VTE Prophylaxis: Pharmacologic Prophylaxis ordered - Choose All That Apply Any of the Below Risk Factors Present?: No Other Risk Factors: No Other congenital or acquired thrombophilia - If yes, enter type in comment: No Thrombosis Risk Factor Assessment Level: Very Low Risk Assessment and Plan Assessment: Intractable neck pain with intermittent tingling sensation along right upper extremity rule out cervical spondylolisthesis History of depression/anxiety and PTSD History of ADD/ADHD History of asthma stable DVT prophylaxis Plan: Patient is a 23-year-old female admitted to the hospital with severe neck pain. Patient was initially seen at ER. Patient did have CT head and lumbar puncture was done at the time. CSF fluid analysis is negative. CSF fluid culture is pending at this time. CT cervical spine is normal. MRI of the cervical spine was ordered. Patient will be continued on Toradol IV and morphine and also one dose of Flexeril 5 mg was given. Continue with home medications. Continue with pain management and follow up MRI. Time with Patient: Greater than 30
[2018-09-04] MEDS: MORPHINE SULFATE 4 MG/ML SYRINGE IV PRN ×2 (00:21→06:46)
[2018-09-04] MEDS: KETOROLAC 30 MG/ML 1 ML VIAL IVP SCH ×3 (02:58→16:18)
[2018-09-04] MEDS: LORATADINE 10 MG TAB PO SCH (08:42)
[2018-09-04] MEDS: LORazepam 0.5 MG TAB PO SCH (08:42)
[2018-09-04] MEDS: PATIENT'S OWN (Dextroamphetamine/Amphetamine [Adderall] 20 MG) PO SCH ×3 (10:31→17:34)
[2018-09-04] MEDS: HYDROcodone/APAP 15 ML SOLUTION PO PRN ×2 (11:42→20:38)
--- NOTE | 2018-09-04 12:29 | MR ---
EXAMINATION TYPE: MR cervical spine wo con DATE OF EXAM: 09/04/2018 COMPARISON: CT cervical spine 09/02/2018 HISTORY: Intractable neck pain CONTRAST: Performed utilizing 0 mL intravenous Gadavist gadolinium contrast. TECHNIQUE: Multiplanar multiecho imaging on a 3.0 Blanca magnet is performed through the cervical spin e. FINDINGS: The craniovertebral junction is normal. Vertebral body alignment is normal. Craniovertebral junction is normal. Disc heights are preserved. Vertebral body heights are preserved. No focal disc herniation or significant disc bulge is evident. No spinal canal stenosis or neural fo raminal stenosis is present. Mild disc desiccation is present C3-4 C4-5. Signal through the spinal cord appears within normal limits. IMPRESSIONS: 1. No acute cervical spine abnormality.
[2018-09-04] MEDS: ONDANSETRON 4 MG/2 ML VIAL IVP PRN (16:03)
[2018-09-04] MEDS: LURASIDONE 20 MG TAB PO SCH (21:23)
[2018-09-04] MEDS ORDERED: ALPRAZolam 0.25 MG TAB PO PRN (23:17)
[2018-09-05] MEDS: MORPHINE SULFATE 4 MG/ML SYRINGE IV PRN ×4 (03:28→17:19)
--- NOTE | 2018-09-05 06:32 | PN ---
PROGRESS NOTE DATE OF SERVICE: 09/04/2018. This 23-year-old woman with a past medical history of multiple medical problems, admitted with intractable neck pain. The patient had a cervical spine MRI did not show any acute abnormalities. No chest pain or palpitation. No fever. PHYSICAL EXAMINATION: On exam, alert and oriented x3. Pulse is 89, blood pressure 110/76, respirations 16, temperature 98.1, pulse ox 99% on room air. HEENT: Conjunctivae normal. Oral mucosa moist. NECK: No jugular venous distention. No carotid bruit. No lymph node enlargement. CARDIOVASCULAR: S1, S2 muffled. RESPIRATORY: Breath sounds diminished at the bases. No rhonchi, no crackles. ABDOMEN: Soft, nontender. LEGS: No edema, no swelling. NERVOUS SYSTEM: No focal deficits. Extension neck movements slightly painful. LABS: CBC within normal limits. Sodium 139, potassium 4. ASSESSMENT: 1. Intractable neck pain possibly musculoskeletal. 2. No evidence of cervical spondylosis. 3. Depression, anxiety, posttraumatic stress disorder. 4. Attention deficit disorder, attention deficit hyperactivity disorder. 5. Asthma, stable. RECOMMENDATIONS AND DISCUSSION: Recommend to continue current medication, continue symptomatic treatment. Otherwise spinal surgery has been consulted. We will follow the patient closely. Otherwise, resume the home medications. Further recommendations to follow. MMODL / IJN: [id number] /
[2018-09-05] MEDS: PANTOPRAZOLE 40 MG TABLET PO SCH (07:23)
[2018-09-05] MEDS: PATIENT'S OWN (Dextroamphetamine/Amphetamine [Adderall] 20 MG) PO SCH ×3 (07:30→15:56)
[2018-09-05] MEDS: LORazepam 0.5 MG TAB PO SCH (08:23)
[2018-09-05] MEDS: LORATADINE 10 MG TAB PO SCH (08:23)
--- NOTE | 2018-09-05 13:03 | P.CNOR ---
History of Present Illness - [facility] Consult date: 09/05/18 Requesting physician: Daija Leo Consult reason: neck pain (Posterior cervical pain and occipital pain) History of present illness: Patient is a very pleasant 23-year-old female who is seen and examined at the bedside for further evaluation of her cervical spine. She states his past , 08/31/2018, she began to experience posterior cervical pain with pain radiating up the posterior cervical spine and over the top of her head. She denies any injuries. She presented to a [facility] emergency department for further evaluation. CT of the cervical spine was performed at that time which showed no significant findings. She was discharged. Her symptoms continued to worsen over the next couple days. She presented back to [facility] emergency department for further evaluation on 09/02/2018. Patient was admitted for further evaluation. MRI of the cervical spine was performed. She states her symptoms are better controlled since receiving morphine for pain control. She denies any upper extremity radiculopathy or weakness bilaterally. She states she has not experienced these symptoms previously. She states her symptoms are better controlled while lying in bed. Her neck pain is exacerbated during increased ambulation. She is eating and voiding without difficulty. Lumbar puncture was also performed at her previous appointment on 08/31/2018 negative for acute process. Past Medical History Past Medical History: Asthma Additional Past Medical History / Comment(s): personality disorder History of Any Multi-Drug Resistant Organisms: None Reported Past Surgical History: Orthopedic Surgery Additional Past Surgical History / Comment(s): orthopedic surgery on right foot Past Anesthesia/Blood Transfusion Reactions: No Reported Reaction Past Psychological History: ADD/ADHD, Anxiety, Depression, PTSD Additional Psychological History / Comment(s): borderline personality disorder Smoking Status: Never smoker Past Alcohol Use History: Occasional Past Drug Use History: None Reported - Past Family History Mother Family Medical History: Asthma Additional Family Medical History / Comment(s): ovarian cysts Father Family Medical History: Unable to Obtain Medications and Allergies Home Medications Medication Instructions Recorded Confirmed Type Dextroamphetamine/Amphetamine 20 mg PO TID 10/04/17 09/03/18 History [Adderall] Ibuprofen [Motrin] 800 mg PO TID PRN 08/04/18 09/03/18 History LORazepam [Ativan] 0.5 mg PO DAILY 08/04/18 09/03/18 History Lurasidone [Latuda] 20 mg PO HS 08/04/18 09/03/18 History Ranitidine HCl [Zantac] 150 mg PO BID PRN 08/31/18 09/03/18 History Ondansetron Odt [Zofran ODT] 4 mg PO Q8HR PRN #5 tab 09/01/18 09/03/18 Rx Levocetirizine Dihydrochloride 5 mg PO DAILY 09/03/18 09/03/18 History [Xyzal] Allergies Allergy/AdvReac Type Severity Reaction Status Date / Time No Known Allergies Allergy Verified 08/31/18 20:56 Physical Examination Physical exam: Patient is awake, alert, and oriented 3 Vital signs stable Good chest excursion with deep inspiration and expiration Examination of the cervical spine reveals skin is intact with no abrasions, lacerations, or bruises; no erythema, purulence or signs of infection Evidence of a tattoo over the right posterior shoulder at the scapula and over the left anterior forearm Mild pain with palpation over the posterior cervical spine and at the occiput Mild spasm over the trapezius bilaterally Full range of motion of the cervical spine with adequate flexion, extension, and bilateral rotation [employer] Supervisor strength, thumb strength, interosseous strength, biceps strength, triceps strength, and shoulder strength positive sustained bilaterally Upper extremity strength 5/5 bilaterally Biceps reflex 2+ bilaterally and Brachioradialis reflexes 2+ bilaterally No upper extremity hyperreflexia bilaterally Hoffmans sign negative upper extremity bilaterally Results Pertinent studies: MRI of the cervical spine performed on 09/04/2018: Overall alignment is adequately maintained; C3-4 and C4-5 disc desiccation; no evidence of significant herniated nucleus pulposis; no evidence of vertebral body compression fracture; no evidence of spinal canal stenosis or neural foraminal stenosis throughout cervical spine; spinal cord signal appears to be within normal limits; no acute cervical spine abnormality; no evidence of cervical instability CT of the cervical spine performed on 09/02/2018: Normal cervical spine CT; no evidence of fracture; no acute findings within the spinal canal; no evidence of spinal canal stenosis; soft tissues unremarkable - Labs Labs: H & H 09/02/18 Range/Units 22:45 Hgb 15.2 (11.4-16.0) gm/dL Hct 44.4 (34.0-46.0) % Result Diagrams: 09/02/18 22:45 09/02/18 22:45 Assessment and Plan Assessment: Assessment: Posterior cervical pain C3-4 and C4-5 disc desiccation Occipital headaches History of asthma, personality disorder, ADD/ADHD, anxiety/depression, and PTSD (1) Cervical pain Current Visit: Yes Status: Acute Code(s): M54.2 - CERVICALGIA SNOMED Code( s): 98355597 (2) Occipital headache Current Visit: Yes Status: Acute Code(s): R51 - HEADACHE SNOMED Code(s): 948625 (3) Desiccation of intervertebral disc Current Visit: Yes Status: Acute Code(s): ZSC8766 - SNOMED Code(s): 60567986 Plan: Plan: 1. After further examination of the patient, obtaining history from the patient , and reviewing of imaging, we are not currently planning for any surgical intervention or further evaluation in regards to the patient cervical spine. She has been experiencing posterior cervical spine pain radiating up the posterior cervical spine and over the top of the head. She denies any injuries. At the bedside today she currently denies any upper extremity weakness or radiculopathy bilaterally. Reviewing of imaging does not show any evidence of significant herniated nucleus pulposus. There are no evidence of cervical spinal canal stenosis or neural foraminal stenosis. No evidence of cervical instability. There are no indications for surgical intervention. Surgical intervention would most likely exacerbate her symptoms further and provided no relief of her symptoms. At this time we discussed she should exhaust all conservative treatment options and avoid surgical intervention of her cervical spine. We will plan to consult pain management for further evaluation and discuss possible treatment options. At this time, she is clear for discharge from an orthopedic spine standpoint. We will plan have her follow up on an outpatient basis only as needed. She may follow-up with Nguyễn Barone PA-C or Dr. Godwin Orozco at [facility]. 2. Continue pain control medications as prescribed by medicine 3. Patient will continue to be seen and examined by medicine 4. Consult will be placed with pain management for further evaluation discuss possible treatment options 5. Patient has been discussed in detail with Dr. Godwin Orozco and he agrees with this plan Time with Patient: Greater than 30 (Including obtaining history, physical examination, reviewing her imaging, and dictation.)
[2018-09-05] MEDS: HYDROcodone/APAP 15 ML SOLUTION PO PRN (14:49)
--- NOTE | 2018-09-05 15:13 | P.PAINCN ---
History of Present Illness - Reason for Consult Consult date: 09/05/18 - History of Present Illness This is a 23-year-old female, with a one-week history of severe neck pain and headache, the patient denies any initiating event , and she reported that the symptoms started last week, and she was admitted to [facility] with the emergency room, the CT of the brain was negative for any abnormalities, MRI of the cervical spine showed patient had disc desiccation cervical area, patient reported that her symptoms worsen with neck movement, and occasionally she had some numbness and tingling sensation in the upper extremities, she denies any motor or sensory deficit, patient had diagnostic lumbar puncture done previously and it was negative for any abnormalities, patient denies any change in her bowel movements or urination, and she reported that the headache radiates from the base of the skull to The top of the head. Past Medical History Past Medical History: Asthma Additional Past Medical History / Comment(s): personality disorder History of Any Multi-Drug Resistant Organisms: None Reported Past Surgical History: Orthopedic Surgery Additional Past Surgical History / Comment(s): orthopedic surgery on right foot Past Anesthesia/Blood Transfusion Reactions: No Reported Reaction Past Psychological History: ADD/ADHD, Anxiety, Depression, PTSD Additional Psychological History / Comment(s): borderline personality disorder Smoking Status: Never smoker Past Alcohol Use History: Occasional Past Drug Use History: None Reported - Past Family History Mother Family Medical History: Asthma Additional Family Medical History / Comment(s): ovarian cysts Father Family Medical History: Unable to Obtain Medications and Allergies Home Medications Medication Instructions Recorded Confirmed Type Dextroamphetamine/Amphetamine 20 mg PO TID 10/04/17 09/03/18 History [Adderall] Ibuprofen [Motrin] 800 mg PO TID PRN 08/04/18 09/03/18 History LORazepam [Ativan] 0.5 mg PO DAILY 08/04/18 09/03/18 History Lurasidone [Latuda] 20 mg PO HS 08/04/18 09/03/18 History Ranitidine HCl [Zantac] 150 mg PO BID PRN 08/31/18 09/03/18 History Ondansetron Odt [Zofran ODT] 4 mg PO Q8HR PRN #5 tab 09/01/18 09/03/18 Rx Levocetirizine Dihydrochloride 5 mg PO DAILY 09/03/18 09/03/18 History [Xyzal] Allergies Allergy/AdvReac Type Severity Reaction Status Date / Time No Known Allergies Allergy Verified 08/31/18 20:56 Physical Exam Vitals: Vital Signs Temp Pulse Resp BP Pulse Ox 09/05/18 07:00 98.5 F 87 15 114/72 09/04/18 23:00 98.5 F 96 16 112/76 98 09/04/18 15:15 98.1 F 89 16 110/76 99 Intake and Output 09/05/18 09/05/18 09/05/18 06:59 14:59 22:59 Intake Total 560 118 Balance 560 118 Intake: Oral 560 118 Other: Voiding Method Toilet Physical Examinations : -Constitutiona : Cooperative , not in acute distress . -HEENT : nech ; supple , no Lymphadenopathy , normal thyroid size . eyes : no ptosis , no icterus, no photophobia . ENT : normal of hearing , normal oropharynx , no Thrush . - Respiratory : Chest clear to auscultations Bilaterally , no wheezing , no Rhonchi . - Cardiovascula : regular rate and rhythem , S1 , S2 , no S3 , no S4. - Gastrointestina : abdomen soft no tenderness , bowel sounds , no organomegally . - Genitourinary : Defferred . - neurologic : Cranial nerve II to XII intact , no focal neurological deffecit . -psychatric : alert , oriented X 3 , appropriate affect , intact judgment and insight . -Lymphatic : no Lymphadenopathy . - musculoskeltal : Cervical Spine motor stregnth in the deltoid and biceps, normal right side , normal Left side motor stregnth biceps and the wrist extensors normal right side ,normal left side . motor stregnth in the triceps muscle . normal Right side , normal Left side deep tendon reflexes normal at the biceps , normal at Brachioradialis , normal at triceps. positive cervical facet loading test . Spurling test positive bilaterally. Neck distraction test positive bilaterally. Sincere sign positive bilaterally. Severe tenderness over the occipital nerves bilaterally more prominent on the right side Multiple trigger points in the cervical area and trapezius , rhomboid muscles. Results CBC & Chem 7: 09/02/18 22:45 09/02/18 22:45 Comments: MRI of the cervical spine= mild disc desiccation C34 , C 45 CT of the brain= negative for abnormalities Assessment and Plan Plan: Assessment and plan= cervicogenic headache, occipital neuralgia, myofascial pain syndrome, cervical disc desiccation Patient could benefit from cervical epidural steroid injections , and trigger point injections cervical area Procedure risk and benefits and alternatives discussed with the patient and she agreed with the preceding Time with Patient: Greater than 30 PQRS Measure Charge Sheet Measure #130: Documentation of Current Meds in Medical Chart: Patient's medications documented in chart Measure #226: Tobacco Use: Screen & Cessation Intervention: Pt not a tobacco user Measure #111: Pneumonia Vaccination: Pneumococcal vaccine NOT administered or previously given Measure #47: Advance Care Plan: Advance care planning discussed & documented, pt chose/unable to give Measure #412: Opioid Treatment Agreement: No documentation of signed opioid treatment agreement Measure #408: Opioid Therapy Follow-up Evaluation: Patient had NO f/u eval minimum every 3 months during opioid therapy Measure #317: Preventitive Care & Scrn High Bld Press & F/U: Normal blood pressure, f/u not required Measure #128: Body Mass Index (BMI) Screening & Follow-up: BMI documented within normal parameters Measure #131: Pain Assessment & Follow-up: Pain positive & plan documented, Follow-up scheduled Measure #431: Unhealthy Alcohol Use Preventative Care & Scrn: Patient not identified as an unhealthy alcohol user PQRS Narrative: Smoking Status Never smoker Do You Want the Pneumonia Vaccine Up to Date Vaccine AT THIS TIME? Blood Pressure [Right Arm 114/72 Supine] Blood Pressure 112/82 Pain Intensity [Neck] 2 Pain Intensity 8 Pain Scale Used Numeric (1 - 10) Scale Used Numeric (1 - 10) Home Medications: Ambulatory Orders Dextroamphetamine/Amphetamine [Adderall] 20 mg PO TID 10/04/17 Ibuprofen [Motrin] 800 mg PO TID PRN 08/04/18 LORazepam [Ativan] 0.5 mg PO DAILY 08/04/18 Lurasidone [Latuda] 20 mg PO HS 08/04/18 Ranitidine HCl [Zantac] 150 mg PO BID PRN 08/31/18 Ondansetron Odt [Zofran ODT] 4 mg PO Q8HR PRN #5 tab 09/01/18 Levocetirizine Dihydrochloride [Xyzal] 5 mg PO DAILY 09/03/18
--- NOTE | 2018-09-05 17:02 | P.PN ---
Subjective 23-year-old female admitted for severe neck pain and headache and found to have some mild disc desiccation at C3-C4 and C4-C5 levels, spinal surgery evaluated the patient and patient will undergo steroid injection to the cervical spine after that patient probably will be discharged patient will be started on Toradol for inflammation and radiculopathy. Patient pain is better but still has significant pain in the neck in the cervical spine area. Constitutional: Denied any fatigue denied any fever. Cardio vascular: denied any chest pain, palpitations Gastrointestinal denied any nausea vomiting Pulmonary: Denied any shortness of breath cough Neurologic denied any new focal deficits All inpatient medications were reviewed and appropriate changes in these medications as dictated in the interval history and assessment and plan. Objective - Vital Signs Vital signs: Vital Signs Temp 98.5 F 09/05/18 07:00 Pulse 87 09/05/18 07:00 Resp 15 09/05/18 07:00 BP 114/72 09/05/18 07:00 Pulse Ox 98 09/04/18 23:00 Intake & Output 09/04/18 09/05/18 09/05/18 18:59 06:59 18:59 Intake Total 840 918 Balance 840 918 Intake: Oral 840 918 Other: Voiding Method Toilet Toilet # Voids 3 - Exam PHYSICAL EXAMINATION: GENERAL: The patient is alert and oriented x3, not in any acute distress. Well developed, well nourished. HEENT: Pupils are round and equally reacting to light. EOMI. No scleral icterus. No conjunctival pallor. Normocephalic, atraumatic. No pharyngeal erythema. No thyromegaly. CARDIOVASCULAR: S1 and S2 present. No murmurs, rubs, or gallops. PULMONARY: Chest is clear to auscultation, no wheezing or crackles. ABDOMEN: Soft, nontender, nondistended, normoactive bowel sounds. No palpable organomegaly. MUSCULOSKELETAL: No joint swelling or deformity. EXTREMITIES: No cyanosis, clubbing, or pedal edema. NEUROLOGICAL: Gross neurological examination did not reveal any focal deficits. SKIN: No rashes. - Labs CBC & Chem 7: 09/02/18 22:45 09/02/18 22:45 Assessment and Plan Plan: cervical radiculopathy and cervical cephalalgia with some mild disc desiccation at C3-C4 and C4-C5 levels: Continue with anti-inflammatory medications as mentioned above patient will undergo steroid injection to the cervical spine area -depression -Attention deficit disorder Asthma without any acute exacerbation For above-mentioned chronic medical problems patient will be resumed and continued on appropriate home medications. We'll try to avoid opiate analgesia
[2018-09-05] MEDS: KETOROLAC 30 MG/ML 1 ML VIAL IVP PRN (19:40)
[2018-09-05] MEDS: ONDANSETRON 4 MG/2 ML VIAL IVP PRN (19:44)
[2018-09-05 20:37] VITALS: TEMP 97.6
[2018-09-05] MEDS: LURASIDONE 20 MG TAB PO SCH (20:37)
[2018-09-06] MEDS: KETOROLAC 30 MG/ML 1 ML VIAL IVP PRN (05:35)
[2018-09-06] MEDS ORDERED: SODIUM CHLORIDE 0.9% 500 ML 500 ML IV SCH (07:15)
[2018-09-06] MEDS: LORATADINE 10 MG TAB PO SCH (08:19)
[2018-09-06] MEDS: PATIENT'S OWN (Dextroamphetamine/Amphetamine [Adderall] 20 MG) PO SCH (08:19)
[2018-09-06] MEDS: LORazepam 0.5 MG TAB PO SCH (08:19)
[2018-09-06] MEDS: PANTOPRAZOLE 40 MG TABLET PO SCH (08:19)
[2018-09-06] MEDS ORDERED: LACTATED RINGERS 1,000 ML IV ONE (11:20)
[2018-09-06 11:29] LABS: Glucose,Whole Blood 84 mg/dL (75-99)
--- NOTE | 2018-09-06 12:05 | P.PCN ---
Date of Procedure: 09/06/18 Procedure(s) Performed: . PROCEDURE 1. Cervical epidural steroid injection under fluoroscopic guidance, C7-T1 2. Cervical epidurogram. 3-trigger point injections cervical paravertebral muscles ,2 on the right side ( trapezius and rhomboid muscles ),and 2 on the left side(left trapezius and left rhomboid muscles) PREOPERATIVE DIAGNOSIS: 1- Cervical Degenerative Disc Diseases 2- myofascial pain syndrome and cervical area 3-cervicogenic headache POSTOPERATIVE DIAGNOSIS: : Same as preoperative diagnosis ANESTHESIA: Local anesthesia with lidocaine 1 % , and moderate sedation, with Versed 1 mg and Fentanyl 50 mcg. EBL 0 PROCEDURE INDICATION: The patient with neck pain and and headache unresponsive to conservative treatment consents for procedure. In the preop holding area patient reported that, her headache increases significantly when she is sitting , and this could be secondary to post dural puncture headache, patient had diagnostic lumbar done a few days ago when she was admitted to the hospital, and this could be another contributing factor to her headache, PROCEDURE DESCRIPTION / TECHNIQUE: The patient was seen and identified in the preoperative area. Risks, benefits, complications, including but not limited to infections ,bleeding , allergic reactions to the medications ,and not complete pain releife, and alternatives were discussed with the patient, the patient agreed to proceed with the procedure and signed the consent. Patient was taken to the OR and time out was completed. The patient was placed in the prone position on the procedure table. A pillow was placed under the patients chest to increase the cervical interlaminar space. The cervical area was prepped and draped in the usual sterile fashion. Vital signs were closely monitored during the procedure. Conscious sedation was used during the procedure to decrease patients anxiety. Using anterior-posterior fluoroscopy, the C7-T1 interlaminar space was identified and the skin over this site was marked and then infiltrated with 1% lidocaine subcutaneously. Subsequently, a 20-gauge 3-1/2-inch Tuohy epidural needle was inserted and advanced toward the epidural space by means of the `` hanging-drop technique and guided by AP and lateral fluoroscopy. The correct needle position in the epidural space was verified with the injection of 2 mL of the water soluble contrast dye Isovue-200 and observing an excellent epidurogram with the epidural spread of the dye, after negative aspiration for blood and CSF and in the absence of paresthesias. Again after negative aspiration, mixture containing 20 mg Dexamethasone and 2 ml of preservative- free normal saline injected and a washout of epidurogram was seen. Needle was withdrawn intact. Then after that the trigger point which was marked in the preop holding area, 2 on the right side and right trapezius and right rhomboid muscles each one of them injected with bupivacaine 0.5% 2 ml injected at each trigger point injected using 25-gauge needle injection done after negative aspiration and there was no paresthesia during the injection , then I did a trigger point on the left side, 2 trigger points injected on the left side cervical paravertebral muscles left side trapezius and left-sided rhomboid muscles each one of them injected with bupivacaine 0.5% 2 mL injected at each trigger point using 25-gauge needle, injection done after negative aspiration and there was no paresthesia during the injection, patient tolerated the procedure well without any complications. Complications= none. Disposition= patient was placed in supine position and transferred to the recovery room area in stable condition and there was no evidence of upper or lower extremity motor or sensory deficit after the procedure patient was discharged from recovery room after discharge criteria met and home discharge instructions was given by the staff and patient will follow with the pain clinic in 2-4 weeks
[2018-09-06 12:12] VITALS: RESP 17
--- NOTE | 2018-09-06 13:20 | FL ---
Fluoroscopy HISTORY: Pain 2 seconds fluoroscopy time supplied to the referring clinician. 1 intraoperative C-arm images docume nt the procedure. See dictated report from anesthesia.
[2018-09-06 14:07] VITALS: BP 123/85; PULSE 82
--- NOTE | 2018-09-11 06:57 | P.DS ---
Providers Date of admission: 09/03/18 00:18 Expected date of discharge: 09/06/18 Attending physician: MD Dr. Ezio Phillips Consults: 09/04/18 22:25 Consult Physician Routine Consulting Provider: Cristina Orozco Consult Reason/Comments: Neck Pain Do you want consulting provider notified?: Yes 09/05/18 12:58 Consult to Anesthesia Routine Consulting Provider: Anesthesia,Services Consult Reason/Comments: Posterior cervical sprain; occipital headaches Primary care physician: Kinjal Santiago Hospital Course: Final Diagnoses: cervical radiculopathy and cervical cephalalgia with some mild disc desiccation at C3-C4 and C4-C5 levels: Status post steroid injection to the cervical spine area -depression -Attention deficit disorder Asthma without any acute exacerbation Hospital course:23-year-old female admitted for severe neck pain and headache and found to have some mild disc desiccation at C3-C4 and C4-C5 levels, spinal surgery evaluated the patient and patient will undergo steroid injection to the cervical spine after that patient probably will be discharged patient will be started on Toradol for inflammation and radiculopathy. Patient pain is better but still has significant pain in the neck in the cervical spine area. Evaluated by orthopedic surgery and pain management services. Maintained on anti-inflammatory medication. Received steroid injection. Significant clinical improvement. Cleared by all consults for discharge. Patient is being discharged home in a stable condition with guarded prognosis. EXAMINATION: GENERAL: The patient is alert and oriented x3, not in any acute distress. HEENT: Pupils are round and equally reacting to light. EOMI. No scleral icterus. No conjunctival pallor. Normocephalic, atraumatic. CARDIOVASCULAR: S1 and S2 present. No murmurs, rubs, or gallops. PULMONARY: Chest is clear to auscultation, no wheezing or crackles. ABDOMEN: Soft, nontender, nondistended, normoactive bowel sounds. No palpable organomegaly NEUROLOGICAL: Gross neurological examination did not reveal any focal deficits. The impression and plan of care has been dictated as directed. : I performed a history and examination of this patient, discussed the same with the dictator. I agree with the dictator's note ,documented as a scribe. Any additional findings or plans will be noted. Time taken: 35 minutes Patient Condition at Discharge: Stable Plan - Discharge Summary Discharge Rx Participant: No New Discharge Prescriptions: Continue Dextroamphetamine/Amphetamine [Adderall] 20 mg PO TID LORazepam [Ativan] 0.5 mg PO DAILY Lurasidone [Latuda] 20 mg PO HS Ibuprofen [Motrin] 800 mg PO TID PRN PRN Reason: Pain Ranitidine HCl [Zantac] 150 mg PO BID PRN PRN Reason: Heartburn Ondansetron Odt [Zofran ODT] 4 mg PO Q8HR PRN #5 tab PRN Reason: Nausea Levocetirizine Dihydrochloride [Xyzal] 5 mg PO DAILY Discharge Medication List Dextroamphetamine/Amphetamine [Adderall] 20 mg PO TID 10/04/17 [History] Ibuprofen [Motrin] 800 mg PO TID PRN 08/04/18 [History] LORazepam [Ativan] 0.5 mg PO DAILY 08/04/18 [History] Lurasidone [Latuda] 20 mg PO HS 08/04/18 [History] Ranitidine HCl [Zantac] 150 mg PO BID PRN 08/31/18 [History] Ondansetron Odt [Zofran ODT] 4 mg PO Q8HR PRN #5 tab 09/01/18 [Rx] Levocetirizine Dihydrochloride [Xyzal] 5 mg PO DAILY 09/03/18 [History] Follow up Appointment(s)/Referral(s): Pamela Layton MD [Primary Care Provider] - 09/15/18 9:20 am Nguyễn Barone PAC [PHYSICIAN SENIOR GRADUATE ADVISOR] - As Needed (Patient may follow-up with Nguyễn Barone PA-C or Dr. Godwin Orozco at [facility] on an as-needed basis following discharge. ) Dana Jimenez MD [STAFF PHYSICIAN] - 09/20/18 8:00 am (8:00am Arrival time for Cervical Epidural and Cervical Trigger Point Injections Patient to please not have anything to eat or drink after midnight, also to please bring a regional owner operator truck driver) Discharge/Stand Alone Forms: [facility] Diary, [facility] Instructions
== END 2018-09-06 18:42 ==
LOC: EC 22:06 → 4SSUR 09-03 00:18
PROVIDERS: ADMIT Internal Medicine; ATTEND Internal Medicine
DX: M50.13 Cervical disc disorder with radiculopathy, cervicothoracic region (principal); M79.18 Myalgia, other site; R51 Headache; Z87.09 Personal history of other diseases of the respiratory system; F60.3 Borderline personality disorder; F90.9 Attention-deficit hyperactivity disorder, unspecified type; F41.9 Anxiety disorder, unspecified; F32.9 Major depressive disorder, single episode, unspecified; F43.10 Post-traumatic stress disorder, unspecified; Z84.2 Family history of other diseases of the genitourinary system; Z79.899 Other long term (current) drug therapy
CPT/HCPCS: 96376 ×4; 96375 ×3; 96361; 96374; 99285; 36415; 80048; 85025; 81025; 72126; 72141; 20552; 62321; G0378 ×4; J2250; J2270 ×3; J1200; J1100; J2765; J2405 ×2; J3010; J1885 ×4; Q9967; Q9966

== ENCOUNTER → 2019-03-06 | Outpatient (CLI) | payer OTHER ==
--- NOTE | 2019-03-06 12:35 | MR ---
EXAMINATION TYPE: MR pelvis wo/w con DATE OF EXAM: 03/06/2019 COMPARISON: CT abdomen pelvis dated 08/04/2018 and ultrasound dated 08/04/2018 HISTORY: Pain in lower left pelvic area CONTRAST: Standard multiplanar, multisequence MRI departmental protocol utilizing 4.5 mL intravenous Gadavist g adolinium contrast. FINDINGS: The junctional zone is slightly prominent measuring approximately 9 mm however this is within normal limits. No punctate foci of T2 hyperintensity are seen. The normal cervical fibromuscular stroma is m aintained. The uterus is noted to be left para midline and measures approximately 5.3 x 2.7 x 2.9 cm. Endometrium is within normal limits measuring 2 mm. There is a small intramural fibroid that places mass effect on the endometrium as the endometrium becomes curvilinear near the fundus all of the smal l fibroid is noncircumscribed this measures approximately 6 mm. A second intramural leiomyoma measuri ng 6 mm as well is seen within the anterior mid uterine body of the anteflexed uterus. Vaginal cuff i s grossly unremarkable. The left ovary contains multiple nonenhancing follicles that are T2 hyperintense and T1 hypointense a nd peripherally oriented. The left ovary measures 2.8 x 2.3 x 2.2 cm. The right ovary measures approx imately 3.9 x 2.7 x 2.8 cm with multiple peripherally oriented follicles. Degenerative disc disease is seen at L5-S1 and L4-L5 with at least broad-based disc bulges. Rudimenta ry disc is seen at S1-S2. Bone marrow signal is within normal limits. Urinary bladder is unremarkable. No free fluid in the pelvis. No dilated bowel. No inguinal hernia is seen. No pelvic adenopathy. No abnormal enhancement. The leftward tilting uterus does have some mass effect upon the left lateral margin of the urinary bladder. IMPRESSION: 1. There is leftward tilt of the anteverted uterus occupying the left adnexa with slight mass effect on the urinary bladder. There are 2 small 6 mm intramural uterine leiomyomas and a slightly prominent junctional zone although this does not meet criteria for adenomyosis at this time. 2. Multiple peripherally oriented follicles bilaterally. Polycystic ovarian syndrome to be considered in the appropriate clinical setting.
== END | disposition home or self-care (01) ==
LOC: RADMRIMAIN 11:30
PROVIDERS: ATTEND Obstetrics & Gynecology Obstetrics
DX: D25.1 Intramural leiomyoma of uterus (principal); Q51.9 Congenital malformation of uterus and cervix, unspecified
CPT/HCPCS: 72197; A9585

== ENCOUNTER → 2019-03-09 | Outpatient (CLI) | payer OTHER ==
--- NOTE | 2019-03-09 18:13 | MR ---
EXAMINATION TYPE: MR brain wo/w con DATE OF EXAM: 03/09/2019 COMPARISON: None HISTORY: ELEVATED PROLACTIN CONTRAST: Performed utilizing 4.5 mL intravenous Gadavist gadolinium contrast. TECHNIQUE: Multiplanar, multiecho imaging on a 3.0 Blanca magnet is performed through the brain. Stud y is performed within 24 hours of arrival to the hospital. The craniovertebral junction is normal. The pituitary is normal. While no suspicious abnormality is evident within the pituitary, a small microadenoma may not be appreciated on standard MRI brain with contrast. Dedicated MRI of the pituitary could be performed. The optic chiasm is normal. Suprasellar cistern is unremarkable. Pituitary stalk is midline. Diffusion-weighted imaging is performed. No abnormal hyperintensity is present to suggest an acute i ntracranial infarct or acute ischemic change. There are scattered punctate subcortical white matter changes within the left and right cerebral james spheres. Differential diagnosis should include multiple sclerosis. Differential diagnosis would inclu de microvascular ischemic change, migraine headaches, Lyme disease among other etiologies. The larges t lesion in the right frontal subcortical white matter is 0.4 cm. Series 501 image 23. Largest lesion on the left measures 0.5 cm in the left toure radiata. Series 501 image 18. No enhancing lesions are evident. Ventricles and sulci are appropriate for the patient age. IMPRESSIONS: 1. Multiple subcortical and deep white matter changes throughout the cerebral hemispheres. Workup for multiple sclerosis is recommended.
== END | disposition home or self-care (01) ==
LOC: RADMRIMAIN 12:50
PROVIDERS: ATTEND Obstetrics & Gynecology Obstetrics
DX: R90.89 Other abnormal findings on diagnostic imaging of central nervous system (principal)
CPT/HCPCS: 70553; A9585

== ENCOUNTER 2019-04-11 01:10 | Observation (INO) | payer OTHER ==
[2019-04-11] MEDS ORDERED: LORazepam 2 MG/ML INJ IV PRN ×3 (02:14→02:19)
[2019-04-11] MEDS ORDERED: ALPRAZolam 0.25 MG TAB PO PRN (02:14)
[2019-04-11] MEDS ORDERED: NALOXONE 0.4 MG/ML 1 ML VIAL IV PRN (02:14)
[2019-04-11] MEDS ORDERED: ONDANSETRON ODT 4 MG TAB PO PRN (02:15)
--- NOTE | 2019-04-11 02:18 | ED ---
Psych HPI - General Chief Complaint: Psychiatric Symptoms Stated Complaint: Suicidal Time Seen by Provider: 04/11/19 01:31 Source: patient Mode of arrival: wheelchair - History of Present Illness Initial Comments: 24-year-old female patient presents to the emergency department today for evaluation of suicidal ideation. Patient states she feels like her life is spiraling out of control and she just wants to . Patient states that she does have a plan to take her life, she is also specific regarding the details. Patient states she has attempted suicide in the past. She was admitted to the mental health unit. Patient does admit to drinking alcohol daily basis. She does admit to drinking today. She denies any street drug use. Denies any chance of . She denies any current injuries or physical concerns. Patient denies any recent rash, fever, chills, shortness breath, chest pain, abdominal pain, nausea, vomiting, diarrhea, constipation, back pain, numbness, tingling, dizziness, weakness, hematuria, dysuria, urinary urgency, urinary frequency, headache, visual changes, or any other complaints. - Related Data Home Medications Medication Instructions Recorded Confirmed Dextroamphetamine/Amphetamine 20 mg PO TID 10/04/17 09/03/18 [Adderall] Ibuprofen [Motrin] 800 mg PO TID PRN 08/04/18 09/03/18 LORazepam [Ativan] 0.5 mg PO DAILY 08/04/18 09/03/18 Lurasidone [Latuda] 20 mg PO HS 08/04/18 09/03/18 Ranitidine HCl [Zantac] 150 mg PO BID PRN 08/31/18 09/03/18 Levocetirizine Dihydrochloride 5 mg PO DAILY 09/03/18 09/03/18 [Xyzal] Previous Rx's Medication Instructions Recorded Ondansetron Odt [Zofran ODT] 4 mg PO Q8HR PRN #5 tab 09/01/18 Allergies Allergy/AdvReac Type Severity Reaction Status Date / Time No Known Allergies Allergy Verified 08/31/18 20:56 Review of Systems ROS Statement: Those systems with pertinent positive or pertinent negative responses have been documented in the HPI. ROS Other: All systems not noted in ROS Statement are negative. Past Medical History Past Medical History: Asthma Additional Past Medical History / Comment(s): personality disorder History of Any Multi-Drug Resistant Organisms: None Reported Past Surgical History: Orthopedic Surgery Additional Past Surgical History / Comment(s): orthopedic surgery on right foot Past Anesthesia/Blood Transfusion Reactions: No Reported Reaction Past Psychological History: ADD/ADHD, Anxiety, Depression, PTSD Smoking Status: Never smoker Past Alcohol Use History: Occasional Past Drug Use History: None Reported - Past Family History Mother Family Medical History: Asthma Additional Family Medical History / Comment(s): ovarian cysts Father Family Medical History: Unable to Obtain General Exam General appearance: alert, in no apparent distress, other (This is a well- developed, well-nourished adult female patient in no acute distress. Vital signs upon presentation are temperature 98.1F, pulse 116, respirations 18, blood pressure 114/72, pulse ox 98% on room air.) Eye exam: Present: normal appearance, PERRL, EOMI. Absent: scleral icterus, conjunctival injection, periorbital swelling ENT exam: Present: normal exam, normal oropharynx, mucous membranes moist Respiratory exam: Present: normal lung sounds bilaterally. Absent: respiratory distress, wheezes, rales, rhonchi, stridor Cardiovascular Exam: Present: regular rate, normal rhythm, normal heart sounds. Absent: systolic murmur, diastolic murmur, rubs, gallop, clicks Neurological exam: Present: alert, oriented X3, CN II-XII intact Psychiatric exam: Present: depressed, suicidal ideation. Absent: homicidal ideation Skin exam: Present: warm, dry, intact, normal color. Absent: rash Course Vital Signs 04/11/19 01:12 Temperature 98.1 F Pulse Rate 116 H Respiratory 18 Rate Blood Pressure 114/72 O2 Sat by Pulse 98 Oximetry Medical Decision Making - Medical Decision Making 24-year-old female patient presents to the emergency department today for evaluation of depression and suicidal ideation. Patient admits to be a daily drinker. Alcohol is over 200. She is now sober until 10 AM. We'll admit for observation with psych consult. We will add alcohol withdrawal protocol. Disposition Clinical Impression: Alcohol intoxication, Suicidal ideation Disposition: ADMITTED IP TO THIS [facility] Condition: Serious Referrals: Pamela Layton MD [Primary Care Provider] - 1-2 days Decision to Admit Reason: Admit from EC Decision Date: 04/11/19 Decision Time: 02:18
[2019-04-11] MEDS ORDERED: THIAMINE 100 MG/ML 2 ML VIAL IM STA (02:19)
[2019-04-11] MEDS ORDERED: SODIUM CHLORIDE 0.9% 1,000 ML with MVI, ADULT NO.4 WITH VIT K 10 ML, THIAMINE 100 MG, F... IV ONE ×4 (03:00)
[2019-04-11 03:23] LABS: ALT 22 U/L (9-52); AST 27 U/L (14-36); Acetaminophen <10.0 ug/mL; African American GFR (CKD) >90 (>60 ml/min/1.73 sqM); Albumin 4.2 g/dL (3.5-5.0); Alkaline Phosphatase 81 U/L (38-126); Anion Gap 12 mmol/L; Basophils % (A) 0 %; Blood Urea Nitrogen 8 mg/dL (7-17); Calcium 8.9 mg/dL (8.4-10.2); Carbon Dioxide 19 mmol/L (22-30); Chloride 112 mmol/L (98-107); Eosinophils # (A) 0.2 k/uL (0-0.7); Eosinophils % (A) 2 %; Glucose 93 mg/dL (74-99); HCT 40.6 % (34.0-46.0); HGB 13.9 gm/dL (11.4-16.0); Lymphocytes # (A) 1.7 k/uL (1.0-4.8); Lymphocytes % (A) 27 %; MCH 30.5 pg (25.0-35.0); MCHC 34.3 g/dL (31.0-37.0); Monocytes # (A) 0.4 k/uL (0-1.0); Monocytes % (A) 6 %; Neutrophils % (A) 64 %; Platelet Count 205 k/uL (150-450); RBC 4.56 m/uL (3.80-5.40); Salicylate <1.0 mg/dL; Sodium 143 mmol/L (137-145); Total Bilirubin 0.3 mg/dL (0.2-1.3); Total Protein 6.9 g/dL (6.3-8.2); WBC 6.3 k/uL (3.8-10.6)
[2019-04-11 03:49] LABS: Alcohol 224 mg/dL
[2019-04-11 07:06] LABS: Amphetamine Screen,Urine Not Detected (NotDetected); Barbiturate Screen,Urine Not Detected (NotDetected); Benzodiazepines Screen,Urine Not Detected (NotDetected); Cocaine Screen,Urine Not Detected (NotDetected); Methadone Screen, Urine Not Detected (NotDetected); Opiate Screen,Urine Not Detected (NotDetected); Oxycodone Screen, Urine Not Detected (NotDetected); Phencyclidine Screen,Urine Not Detected (NotDetected); Tricyclic Antidepressant,Urine Not Detected (NotDetected); Urn Cannabinoid Scrn Not Detected (NotDetected)
--- NOTE | 2019-04-11 12:48 | P.HPIM ---
History of Present Illness 24-year-old pleasant female came in with depression and suicidal ideation. Patient and did drink hard liquor yesterday drinking quite a bit yesterday. Patient only drinks unequal and to 4 beers. On daily basis patient withdrawals are not normally shakes and headache. Patient denied any fever chills nausea vomiting. Patient is agreeable to go to psychiatric floor if needed. Patient has a sitter in place. Review of Systems REVIEW OF SYSTEMS: CONSTITUTIONAL: No fever, no malaise, no fatigue. HEENT: No recent visual problems or hearing problems. Denied any sore throat. CARDIOVASCULAR: No chest pain, orthopnea, PND, no palpitations, no syncope. PULMONARY: No shortness of breath, no cough, no hemoptysis. GASTROINTESTINAL: No diarrhea, no nausea, no vomiting, no abdominal pain. NEUROLOGICAL: No headaches, no weakness, no numbness. HEMATOLOGICAL: Denies any bleeding or petechiae. GENITOURINARY: Denies any burning micturition, frequency, or urgency. MUSCULOSKELETAL/RHEUMATOLOGICAL: Denies any joint pain, swelling, or any muscle pain. ENDOCRINE: Denies any polyuria or polydipsia. The rest of the 14-point review of systems is negative. Past Medical History Past Medical History: Asthma, Osteoarthritis (OA) Additional Past Medical History / Comment(s): Personality disorder-Border Line Personality Disorder History of Any Multi-Drug Resistant Organisms: None Reported Past Surgical History: Orthopedic Surgery Additional Past Surgical History / Comment(s): orthopedic surgery on right foot Past Anesthesia/Blood Transfusion Reactions: No Reported Reaction Past Psychological History: ADD/ADHD, Anxiety, Depression, PTSD Additional Psychological History / Comment(s): borderline personality disorder, Alcoholism: patient reports drinking 2-3 Four Lokos daily Smoking Status: Never smoker Past Alcohol Use History: Daily Past Drug Use History: Marijuana, Methamphetamine Additional Drug Use History / Comment(s): Patient reports trying methamphetamine a "few" times, but did not like how it made her feel. Patient reports smoking marijuana when she was younger, but did not like that it makes her sleepy - Past Family History Mother Family Medical History: Asthma Additional Family Medical History / Comment(s): ovarian cysts Father Family Medical History: Unable to Obtain Medications and Allergies Home Medications Medication Instructions Recorded Confirmed Type No Known Home Medications 04/11/19 04/11/19 History Allergies Allergy/AdvReac Type Severity Reaction Status Date / Time No Known Allergies Allergy Verified 04/11/19 07:09 Physical Exam Vitals: Vital Signs Temp Pulse Pulse Resp BP BP Pulse Ox 04/11/19 07:50 72 18 124/72 96 04/11/19 07:45 98.3 F 95 18 102/71 96 04/11/19 06:04 75 19 95/61 99 04/11/19 05:14 70 18 109/61 98 04/11/19 03:05 90 16 120/74 98 04/11/19 01:12 98.1 F 116 H 18 114/72 98 Intake and Output 04/10/19 04/11/19 04/11/19 22:59 06:59 14:59 Other: Weight 46.72 kg PHYSICAL EXAMINATION: GENERAL: The patient is alert and oriented x3, not in any acute distress. Well developed, well nourished. HEENT: Pupils are round and equally reacting to light. EOMI. No scleral icterus. No conjunctival pallor. Normocephalic, atraumatic. No pharyngeal erythema. No thyromegaly. CARDIOVASCULAR: S1 and S2 present. No murmurs, rubs, or gallops. PULMONARY: Chest is clear to auscultation, no wheezing or crackles. ABDOMEN: Soft, nontender, nondistended, normoactive bowel sounds. No palpable organomegaly. MUSCULOSKELETAL: No joint swelling or deformity. EXTREMITIES: No cyanosis, clubbing, or pedal edema. NEUROLOGICAL: Gross neurological examination did not reveal any focal deficits. SKIN: No rashes. Results CBC & Chem 7: 04/11/19 02:53 04/11/19 02:53 Labs: Abnormal Lab Results - Last 24 Hours (Table) 04/11/19 Range/Units 02:53 Chloride 112 H (98-107) mmol/L Carbon Dioxide 19 L (22-30) mmol/L Serum Alcohol 224 H* mg/dL Thrombosis Risk Factor Assmnt - Choose All That Apply Any of the Below Risk Factors Present?: No Other Risk Factors: No Other congenital or acquired thrombophilia - If yes, enter type in comment: No Thrombosis Risk Factor Assessment Level: Very Low Risk Assessment and Plan Plan: Depression and suicidal ideation: Patient will continue to one-on-one sitter and psychiatry will evaluate the patient depending on their assessment patient probably will be admitted to psychiatric floor -Alcohol abuse: Counseling was provided -Alcohol withdrawal: Patient will be monitored for that I do not believe patient will have significant withdrawals patient may need less frequent oral Ativan. -Anxiety
--- NOTE | 2019-04-11 12:49 | P.DS ---
Providers Date of admission: 04/11/19 02:14 Attending physician: Daija Leo Consults: 04/11/19 02:14 Consult Physician Urgent Consulting Provider: Benedicto Escalante Consult Reason/Comments: suicidal - history of depression Do you want consulting provider notified?: Already Contacted Primary care physician: Kinjal Santiago [facility] Course: As mentioned in HPI Patient Condition at Discharge: Serious Plan - Discharge Summary New Discharge Prescriptions: No Action No Known Home Medications Discharge Medication List No Known Home Medications 04/11/19 [History] Follow up Appointment(s)/Referral(s): Pamela Layton MD [Primary Care Provider] - 3 Days
[2019-04-11] MEDS ORDERED: NALTREXONE HCL 50 MG TAB PO SCH (13:45)
[2019-04-11 13:53] VITALS: BP 123/82; PULSE 106; RESP 17; TEMP 98.2
[2019-04-11] MEDS ORDERED: THIAMINE 100 MG TAB PO SCH (17:30)
== END 2019-04-11 15:29 | disposition home or self-care (01) ==
LOC: EC 01:10 → 4MS4W 02:14
PROVIDERS: ADMIT Hospitalist; ATTEND Hospitalist
DX: F32.9 Major depressive disorder, single episode, unspecified (principal); F10.129 Alcohol abuse with intoxication, unspecified; R45.851 Suicidal ideations; J45.909 Unspecified asthma, uncomplicated; M19.90 Unspecified osteoarthritis, unspecified site; F60.3 Borderline personality disorder; F90.9 Attention-deficit hyperactivity disorder, unspecified type; F43.10 Post-traumatic stress disorder, unspecified; Z91.5 Personal history of self-harm; Z79.899 Other long term (current) drug therapy; Z79.1 Long term (current) use of non-steroidal anti-inflammatories (NSAID); Y90.7 Blood alcohol level of 200-239 mg/100 ml; Z82.5 Family history of asthma and other chronic lower respiratory diseases; Z84.89 Family history of other specified conditions
CPT/HCPCS: 96375; 82075; 96365; 96366; 99284; 36415; 80053; 85025; 81025; 80306; 83520; G0378; G0480 ×2; J2060; J3411; 80320; 80329

== ENCOUNTER → 2019-05-21 | Outpatient (CLI) | payer OTHER | END | disposition home or self-care (01) | LOC: LABWHC1 07:28 | PROVIDERS: ATTEND Physician Assistant | DX: E22.9 Hyperfunction of pituitary gland, unspecified (principal); R90.82 White matter disease, unspecified; R90.89 Other abnormal findings on diagnostic imaging of central nervous system | CPT/HCPCS: 36415; 82040; 82042; 82784; 83916; 84146 ==

== ENCOUNTER → 2019-12-27 | Outpatient (CLI) | payer OTHER ==
[2019-12-27 12:37] LABS: Basophils % (A) 0 %; Eosinophils # (A) 0.1 k/uL (0-0.7); Eosinophils % (A) 1 %; HCT 38.5 % (34.0-46.0); HGB 13.2 gm/dL (11.4-16.0); Lymphocytes # (A) 1.9 k/uL (1.0-4.8); Lymphocytes % (A) 24 %; MCH 30.7 pg (25.0-35.0); MCHC 34.2 g/dL (31.0-37.0); MCV 89.8 fL (80.0-100.0); Mean Platelet Volume 9.2; Monocytes # (A) 0.4 k/uL (0-1.0); Monocytes % (A) 4 %; Neutrophils # (A) 5.5 k/uL (1.3-7.7); Neutrophils % (A) 69 %; Platelet Count 205 k/uL (150-450); RBC 4.29 m/uL (3.80-5.40); RDW 12.4 % (11.5-15.5)
[2019-12-27 22:25] LABS: Egg White IgE <0.10 kU/L
[2019-12-27 22:26] LABS: Codfish IgE <0.10 kU/L; Peanut IgE <0.10 kU/L
[2019-12-27 22:27] LABS: Clam IgE <0.10 kU/L; Shrimp IgE <0.10 kU/L; Soybean IgE <0.10 kU/L
[2019-12-27 22:28] LABS: Scallop IgE <0.10 kU/L; Walnut IgE (Food) <0.10 kU/L
[2019-12-28 14:25] LABS: Alt. alternata IgE Class CLASS 0; Alternaria alternata IgE <0.10 kU/L (<0.10); Asperg. fumagatus IgE <0.10 kU/L (<0.10); Asperg. fumagatus IgE Class CLASS 0; Bermuda Grass IgE <0.10 kU/L (<0.10); Birch(Com.Silvr) IgE <0.10 kU/L (<0.10); Birch(Com.Silvr) IgE Class CLASS 0; Cat Epith & Dander IgE <0.10 kU/L (<0.10); Cat Epith & Dander IgE Class CLASS 0; Clad herbarum IgE <0.10 kU/L (<0.10); Clad herbarum IgE Class CLASS 0; Cockroach IgE <0.10 kU/L (<0.10); Cottonwood IgE <0.10 kU/L (<0.10); Dermato. Pteronyssinus Class CLASS 0; Dermato. Pteronyssinus IgE <0.10 kU/L (<0.10); Dermato. farinae IgE <0.10 kU/L (<0.10); Dermato. farinae IgE Class CLASS 0; Dog Dander IgE <0.10 kU/L (<0.10); Elm IgE <0.10 kU/L (<0.10); Maple (Box Elder) IgE <0.10 kU/L (<0.10); Maple (Box Elder) IgE Class CLASS 0; Mountain Cedar IgE <0.10 kU/L (<0.10); Mountain Cedar IgE Class CLASS 0; Mouse Urine IgE Class CLASS 0; Mouse Urine Proteins,IgE <0.10 kU/L (<0.10); Nettle IgE <0.10 kU/L (<0.10); Nettle IgE Class CLASS 0; Oak IgE <0.10 kU/L (<0.10); Penicillium chrysogenum IgE <0.10 kU/L (<0.10); Penicillium chrysogenum IgE Cl CLASS 0; Rough Marshelder IgE <0.10 kU/L (<0.10); Rough Marshelder IgE Class CLASS 0; Timothy Grass IgE <0.10 kU/L (<0.10); Timothy Grass IgE Class CLASS 0; White Ash IgE Class CLASS 0
== END | disposition home or self-care (01) ==
LOC: LABWHC1 11:44
PROVIDERS: ATTEND Internal Medicine
DX: T78.40XA Allergy, unspecified, initial encounter (principal)
CPT/HCPCS: 36415; 82785; 85025; 86003

== ENCOUNTER → 2021-04-11 | Outpatient (CLI) | payer OTHER | END | disposition home or self-care (01) | LOC: LABWHC1 09:02 | PROVIDERS: ATTEND Obstetrics & Gynecology | DX: Z34.90 Encounter for supervision of normal pregnancy, unspecified, unspecified trimester (principal); Z3A.00 Weeks of gestation of pregnancy not specified | CPT/HCPCS: 36415; 84702 ==

== ENCOUNTER → 2021-11-19 | Outpatient (CLI) | payer OTHER ==
--- NOTE | 2021-11-19 20:46 | US ---
EXAMINATION TYPE: Ultrasound OB <= 14 week fetus DATE OF EXAM: 11/19/2021 2:51 PM COMPARISON: NONE CLINICAL HISTORY: 26-year-old female Z36.89 ENCOUNTER FOR OTHER SPECIFIED . Confirm dates EXAM PERFORMED: Transabdominal (TA) FINDINGS: EXAM MEASUREMENTS: GESTATIONAL AGE / DATING Physician Established: (10 weeks/5 days) EDC: 06/12/2022 Dates by LMP: LMP unknown Dates by First Scan: No previous this is first scan Dates by Current Scan for: (10 weeks/6 days) EDC: 06/11/2022 MATERNAL ANATOMY Uterus: 9.6 x 5.7 x 8.1cm Right Ovary: 2.8 x 2.2 x 2.3cm Left Ovary: 2.6 x 1.7 x 2.2cm Post CDS / Adnexa: wnl Presence of free fluid: no Presence of corpus luteal cyst: right ovary: 1.9 x 1.3 x 1.8cm Presence of subchorionic bleed: no GESTATION / SURVEY CRL: 4.0cm (10 weeks/6 days) Yolk Sac (normal less than 6mm): 5.2mm Heart Rate: 178 bpm Rhythm: Normal IUP: Viable IUP IMPRESSION: 1. Single live intrauterine with established gestational age of 10 weeks 5 days. Current ul trasound biometry is concordant at 10 weeks 6 days. 2. Consider short interval follow-up given borderline tachycardia at 178 BPM. 3. Otherwise, complete survey recommended at 18-20 weeks.
== END | disposition home or self-care (01) ==
LOC: RADUSWWP 14:23
PROVIDERS: ATTEND Obstetrics & Gynecology
DX: Z36.89 Encounter for other specified antenatal screening (principal); Z3A.10 10 weeks gestation of pregnancy
CPT/HCPCS: 76801

== ENCOUNTER 2022-04-21 16:54 | Outpatient (CLI) | payer OTHER ==
[2022-04-21] MEDS ORDERED: BETAMET ACET-BETAMETH SOD PHOS 6 MG/ML MDV IM SCH (17:45)
[2022-04-21] MEDS ORDERED: LACTATED RINGERS 500 ML IV ONE (17:45)
[2022-04-21] MEDS ORDERED: LACTATED RINGERS 1,000 ML IV SCH (17:45)
[2022-04-21] MEDS ORDERED: hydrALAZINE HCL 20 MG/ML 1 ML VIAL IVP PRN (18:15)
[2022-04-21] MEDS ORDERED: LABETALOL 5 MG/ML VIAL MDV IVP PRN ×3 (18:15)
[2022-04-21] MEDS ORDERED: CALCIUM GLUCONATE 1 GM/10 ML VIAL IV PRN (18:15)
[2022-04-21 18:18] LABS: Basophils % (A) 0 %; Eosinophils # (A) 0.2 k/uL (0-0.7); Eosinophils % (A) 2 %; HCT 35.1 % (34.0-46.0); HGB 12.3 gm/dL (11.4-16.0); Hypochromasia Slight; Lymphocytes # (A) 1.9 k/uL (1.0-4.8); Lymphocytes % (A) 20 %; MCH 29.8 pg (25.0-35.0); MCV 85.2 fL (80.0-100.0); Mean Platelet Volume 10.7; Monocytes # (A) 0.6 k/uL (0-1.0); Monocytes % (A) 7 %; Neutrophils # (A) 6.6 k/uL (1.3-7.7); Neutrophils % (A) 69 %; Platelet Count 197 k/uL (150-450); Poikilocytosis Moderate; RBC 4.12 m/uL (3.80-5.40); RDW 14.1 % (11.5-15.5); WBC 9.6 k/uL (3.8-10.6)
[2022-04-21 18:20] LABS: Appearance,Urine Clear (Clear); Bilirubin,Urine Negative (Negative); Blood,Urine Trace (Negative); Color,Urine Light Yellow; Glucose,Urine (UA) Negative (Negative); Ketones,Urine Negative (Negative); Leukocyte Esterase,Urine Negative (Negative); Mucus,Urine Rare /hpf; Nitrite,Urine Negative (Negative); Protein,Urine Negative (Negative); RBC,Urine <1 /hpf (0-5); Specific Gravity,Urine 1.006 (1.001-1.035); Urobilinogen,Urine <2.0 mg/dL (<2.0); WBC,Urine <1 /hpf (0-5)
[2022-04-21 18:28] LABS: ALT 15 U/L (4-34); AST 30 U/L (14-36); African American GFR (CKD) >90 (>60 ml/min/1.73 sqM); Blood Urea Nitrogen 7 mg/dL (7-17); LDH 847 U/L (313-618); Non-African American GFR(CKD) >90 (>60 ml/min/1.73 sqM); Uric Acid 3.2 mg/dL (3.7-7.4)
[2022-04-21] MEDS ORDERED: MAGNESIUM SULFATE-WATER PMX 4 GM in WATER FOR INJECTION 1 100ML.BAG IVPB ONE (18:30)
--- NOTE | 2022-04-21 18:34 | P.HPOB ---
History of Present Illness H&P Date: 04/21/22 Chief Complaint: Contractions, headache This patient is a pleasant 27-year-old 3 para 1 female estimated date of confinement 06/12/2022 estimated gestational age 32-4/7 weeks who presents to labor and delivery with complaints of concern of pelvic pressure and she also developed a headache today. Patient's history is such that she apparently developed severe preeclampsia with her last and was induced at 34 weeks for this. Patient is under the care of Dr. Salinas for this and has been referred to maternal- medicine, Dr. Juarez. Patient was seen in the office yesterday per Dr. Salinas and at that time she had a blood pressure 116/64. Dr. Salinas also felt she was dilated to 1 cm. Evaluation here shows her cervix to be fingertip and thick with very irregular contractions. Blood pressures are significantly elevated 150-160/104-109. heart tones are 140 and reactive. Ultrasound done yesterday showed vertex 3 lbs. 7 oz. which is the 10th to the 25th percentile with an DENISE of 8.9. Patient's past obstetrical history is also significant for what appears to be pulmonary edema secondary to magnesium sulfate. Review of Systems Constitutional: Reports as per HPI Genitourinary: Reports Menstruation: Reports amenorrhea Neurological: Reports headaches Past Medical History Past Medical History: Asthma, Osteoarthritis (OA) Additional Past Medical History / Comment(s): Personality disorder-Border Line Personality Disorder; severe preeclampsia with her first with delivery at 34 weeks. History of Any Multi-Drug Resistant Organisms: None Reported Past Surgical History: Orthopedic Surgery Additional Past Surgical History / Comment(s): orthopedic surgery on right foot Past Anesthesia/Blood Transfusion Reactions: No Reported Reaction Past Psychological History: ADD/ADHD, Anxiety, Depression, PTSD Additional Psychological History / Comment(s): borderline personality disorder, Alcoholism: patient reports drinking 2-3 Four Lokos daily Past Alcohol Use History: Daily Past Drug Use History: Marijuana, Methamphetamine Additional Drug Use History / Comment(s): Patient reports trying methamphetamine a "few" times, but did not like how it made her feel. Patient reports smoking marijuana when she was younger, but did not like that it makes her sleepy - Past Family History Mother Family Medical History: Asthma Additional Family Medical History / Comment(s): ovarian cysts Father Family Medical History: Unable to Obtain Medications and Allergies Home Medications Medication Instructions Recorded Confirmed Type Aspirin 81 mg PO DAILY 04/21/22 04/21/22 History Stw-Bfhn-Ftaag Acid 1 cap PO DAILY 04/21/22 04/21/22 History [-U Capsule (formulary)] Allergies Allergy/AdvReac Type Severity Reaction Status Date / Time No Known Allergies Allergy Verified 04/21/22 17:21 Exam Intake and Output 04/21/22 04/21/22 04/21/22 06:59 14:59 22:59 Other: Weight 53.07 kg - OBG Physical Exam Abdomen: bowel sounds normal, no diffuse tenderness, no bruit present, no guarding noted, no hepatomegaly, no splenomegaly, no mass Vulva: both: normal Cervix: no lesion (Fingertip and thick), no discharge Uterus: enlarged Results blood work shows she is A-, rubella immune, RPR nonreactive, hepatitis B negative, HIV is nonreactive, quad screen was negative, level III ultrasound per maternal- medicine was normal. Result Diagrams: 04/21/22 17:54 Abnormal Lab Results - Last 24 Hours (Table) 04/21/22 Range/Units 17:54 Urine Blood Trace H (Negative) Urine Mucus Rare H (None) /hpf Assessment and Plan Assessment: This is a pleasant 27-year-old 3 para 1 female 32 4/7 weeks gestation presents with concerns of pressure and headache. At this point there is no ev idence of labor, however patient has significant blood pressure elevations and a history of severe preeclampsia with her previous . Plan at this time is to draw preeclampsia blood work, place an IV and if persistent blood pressure elevations give IV labetalol, Celestone administrat ion, and if persistent blood pressure elevations magnesium sulfate for seizure prophylaxis. Patient also understands that due to her prematurity, once she is stabilized most likely will need transfer to a tertiary facility for the high likelihood that she would need to be delivered prior to 35 weeks. (1) 32 weeks gestation of Current Visit: Yes Status: Acute Code(s): Z3A.32 - 32 WEEKS GESTATION OF SNOMED Code(s): 8451602 (2) Pre-eclampsia Current Visit: Yes Status: Acute Code(s): O14.90 - UNSPECIFIED PRE- ECLAMPSIA, UNSPECIFIED TRIMESTER SNOMED Code(s): 545291263
[2022-04-21 18:35] LABS: Creatinine,Urine Random 26.7 mg/dL; Protein/Creatinine Ratio,Urine 0.337
[2022-04-21] MEDS: MAGNESIUM SULFATE-WATER PMX 20 GM in WATER FOR INJECTION 1 500ML.BAG IV SCH ×2 (18:44→20:33)
--- NOTE | 2022-04-21 19:06 | P.PN ---
Progress Note - Text Progress Note Date: 04/21/22 Patient has had persistent blood pressure elevations therefore was given 20 mg of labetalol IV push over 5 minutes. Blood pressure responded appropriately. Is now 144/95. I did discuss the clinical case with maternal medicine and [facility] and they recommended just given a 4 gm bolus of magnesium and no other magnesium sulfate (due to history of pulmonary edema with mag sulfate in the past) and agreed to transfer at this time. I discussed this with the patient and her partner and they are agreeable to transfer as well. At this time the patient stabilized and monitoring is reassuring.
[2022-04-21 20:12] VITALS: BP 137/108; PULSE 93; RESP 18; TEMP 98.1
--- NOTE | 2022-04-22 00:46 | P.MSEPDOC ---
Presenting Problems - Arrival Data Date of Arrival on Unit: 04/21/22 Time of Arrival on Unit: 17:09 Mode of Transport: Ambulatory - Complaint OB-Reason for Admission/Chief Complaint: Possible Onset of Labor, PIH Medical History - Information : 3 Para: 1 Term: 0 : 1 Abortions: Spontaneous or Elective: 1 Number of Living Children: 1 - Gestational Age Gestational Age by LILIBETH (wks/days): 32 Weeks and 4 Days - History Comment: Hx Pre-eclampsia with previous delivered at 34weeks. Review of Systems - Review of Systems Constitutional: No problems Breast: No problems ENT: No problems Cardiovascular: No problems Respiratory: No problems Gastrointestinal: No problems Genitourinary: No problems Musculoskeletal: No problems Neurological: No problems Skin: No problems Vital Signs - Temperature Temperature: 98.1 F Temperature Source: Oral - Pulse Pulse Oximetery Pulse Rate: 93 Pulse Assessment Method: Automatic Cuff - Respirations Respiratory Rate: 18 Oxygen Delivery Method: Room Air O2 Sat by Pulse Oximetry: 100 - Blood Pressure Right Arm Blood Pressure: 137/108 Blood Pressure Mean: 117 Blood Pressure Source: Automatic Cuff Medical Screen Scoring - Cervical Exam Dilation (cm): 0.5 Effacement (%): 0 Membranes: Intact - Uterine Contractions Frequency From (mins): 4 Frequency To (mins): 10 Duration From (seconds): 40 Duration To (seconds): 40 Intensity: Mild Resting: Soft to palpation - Assessment - Baby A Heart Rate - NICHD Category: Category I (Normal) NST: Reactive Physician Notification - Physician Notified Physician Notified Date: 04/21/22 Physician Notified Time: 17:32 Physician: Dr Dubon New Order Received: Yes - Notification Comment Comment: Dr Dubon on unit. Maternal Triage Index - Maternal Triage Index Presenting for scheduled procedure w/no complaint: No - Stat/Priority 1 Stat Priority 1: No - Urgent/Priority 2 Urgent Priority 2: Yes Provider Notified: Ziggy Dubon Provider Notified Time: 17:32 Criteria Met for Priority 2: Pt presenting with back pain and pressure,hx of pre-eclampsia- ZAPATA, N, blurred vision. Disposition - Disposition OB Disposition: Transfer to other dept./facility Transferred to:: [facility] Discharge Date: 04/21/22 Discharge Time: 19:45 I agree with the RN Medical Screening Exam: Yes Case reviewed; plan agreed upon as documented in EMR&OBIX.: Yes Diagnosis: RELATED CONDITIONS, UNSPECIFIED, THIRD TRIMESTER (Please see dictated H&P, progress note, and discharge summary on this patient's admission transfer and discharge.)
--- NOTE | 2022-04-22 00:47 | P.DS ---
Providers Expected date of discharge: 04/21/22 Attending physician: Ziggy Dubon Primary care physician: Stated None - Discharge Diagnosis(es) (1) 32 weeks gestation of Status: Acute (2) Pre-eclampsia Status: Acute Hospital Course: Patient is admitted through triage with complaints of headache. Patient's found to be not in labor but she did have significant blood pressure elevations consistent with preeclampsia. Patient was given IV labetalol, magnesium sulfate, and transferred to tertiary facility in stable condition for further care. Patient Condition at Discharge: Stable Plan - Discharge Summary New Discharge Prescriptions: No Action Gar-Xyze-Eamkz Acid [-U Capsule (formulary)] 1 cap PO DAILY Aspirin 81 mg PO DAILY Discharge Medication List Aspirin 81 mg PO DAILY 04/21/22 [History] Qhz-Pcbk-Mmqfl Acid [-U Capsule (formulary)] 1 cap PO DAILY 04/21/22 [History] Discharge Disposition: OTHER INSTITUTION NOT DEFINED
== END 2022-04-21 19:45 | disposition other institution (70) ==
LOC: FBPOP 16:54
PROVIDERS: ATTEND Obstetrics & Gynecology
DX: O14.93 Unspecified pre-eclampsia, third trimester (principal); J45.909 Unspecified asthma, uncomplicated; M19.90 Unspecified osteoarthritis, unspecified site; F41.9 Anxiety disorder, unspecified; F32.A Depression, unspecified; R51.9 Headache, unspecified; Z3A.32 32 weeks gestation of pregnancy
CPT/HCPCS: 59025; 96361; 96365; 96367; 96375; 96372; 84112; 82731; 82570; 84156; 82565; 83615; 84450; 84460; 84520; 84550; 85025; 81001; G0463; J3475; J0702; 99215

== ENCOUNTER → 2022-04-24 | Outpatient (CLI) | payer OTHER ==
[~2022-04-24] MED LIST: LABETALOL 5 MG/ML VIAL MDV IVP PRN; LACTATED RINGERS 1,000 ML IV SCH; MAGNESIUM SULFATE-WATER PMX 20 GM in WATER FOR INJECTION 1 500ML.BAG IV SCH; MAGNESIUM SULFATE-WATER PMX 4 GM in WATER FOR INJECTION 1 100ML.BAG IVPB ONE; hydrALAZINE HCL 20 MG/ML 1 ML VIAL IVP PRN
--- NOTE | 2022-04-24 22:39 | P.HPOB ---
History of Present Illness H&P Date: 04/24/22 Chief Complaint: Pelvic pressure, gestational hypertension/preeclampsia This patient is a 27-year-old 3 para 1 female estimated date of confinement 06/12/2022 estimated gestational age 33-0/7 weeks who read presents to labor and delivery this evening with complaints of pelvic pressure and also hypertension. Patient's history is such that she was transferred to [facility] 3 days ago for significant hypertension. Patient states that she was admitted at that time and discharged home yesterday. Patient is not on any oral antihypertensives she was given Imitrex for headaches. Patient's past obstetrical history is significant for severe preeclampsia that developed at 32 weeks and subsequently was induced at 34 weeks by [facility]. Patient repeat presented to this hospital with complaints of pelvic pressure cervix to show no change however blood pressures here continue to be elevated 161/109, 162/113 and 153/93. Review of Systems Constitutional: Reports as per HPI Genitourinary: Reports Menstruation: Reports amenorrhea Past Medical History Past Medical History: Asthma, Osteoarthritis (OA) Additional Past Medical History / Comment(s): Personality disorder-Border Line Personality Disorder; severe preeclampsia with her first with delivery at 34 weeks. History of Any Multi-Drug Resistant Organisms: None Reported Past Surgical History: Orthopedic Surgery Additional Past Surgical History / Comment(s): orthopedic surgery on right foot Past Anesthesia/Blood Transfusion Reactions: No Reported Reaction Smoking Status: Never smoker - Past Family History Mother Family Medical History: Asthma Additional Family Medical History / Comment(s): ovarian cysts Father Family Medical History: Unable to Obtain Medications and Allergies Home Medications Medication Instructions Recorded Confirmed Type Aspirin 81 mg PO DAILY 04/21/22 04/24/22 History Kui-Yocp-Nqcnx Acid 1 cap PO DAILY 04/21/22 04/24/22 History [-U Capsule (formulary)] Allergies Allergy/AdvReac Type Severity Reaction Status Date / Time No Known Allergies Allergy Verified 04/24/22 21:36 Exam Intake and Output 04/24/22 04/24/22 04/24/22 06:59 14:59 22:59 Other: Weight 53.07 kg - OBG Physical Exam Abdomen: bowel sounds normal, no diffuse tenderness, no bruit present, no guarding noted, no hepatomegaly, no splenomegaly, no mass Vulva: both: normal Vagina: normal moisture, no discharge Cervix: no lesion (Cervix is 1 cm thick), no discharge Uterus: enlarged Results labs show she is A-, rubella immune, RPR is nonreactive, hepatitis B is negative, HIV is nonreactive, quad screen was negative, level III ultrasound was normal. Preeclampsia labs are pending Assessment and Plan Assessment: This is a 27-year-old 3 para 1 female 33-0/7 weeks gestation with significant blood pressure elevations that was discharged yesterday and now re- presents. Patient's currently being given some IV labetalol. Patient's blood pressures are still significantly elevated and due to prematurity will need to transfer her to a tertiary facility again. Plan is to check preeclampsia labs and I will consult [facility] for transfer. Patient does have a significant past history of pulmonary edema with magnesium sulfate and therefore I will consult with them whether or not they want to give another loading dose. Patient did receive a course of steroids approximately 3 days ago. (1) 34 weeks gestation of Current Visit: Yes Status: Acute Code(s): Z3A.34 - 34 WEEKS GESTATION OF SNOMED Code(s): 51440248 (2) Pre-eclampsia Current Visit: No Status: Acute Code(s): O14.90 - UNSPECIFIED PRE-ECLAMPSIA, UNSPECIFIED TRIMESTER SNOMED Code(s): 719673023
[2022-04-24 22:44] LABS: Creatinine,Urine Random 34.9 mg/dL; Creatinine,Urine Random 35.1 mg/dL; Protein/Creatinine Ratio,Urine 0.372
[2022-04-24 22:47] LABS: ALT 17 U/L (4-34); AST 30 U/L (14-36); African American GFR (CKD) >90 (>60 ml/min/1.73 sqM); Blood Urea Nitrogen 10 mg/dL (7-17); LDH 483 U/L (313-618); Non-African American GFR(CKD) >90 (>60 ml/min/1.73 sqM); Uric Acid 4.3 mg/dL (3.7-7.4)
--- NOTE | 2022-04-24 23:14 | P.PN ---
Progress Note - Text Progress Note Date: 04/24/22 I contacted the resident physician at [facility] and she discussed her case with the attending physician. Patient accepted in transfer and they've requested to load her with 4 g of magnesium sulfate 1 g sulfate per hour thereafter. Patient's blood pressure did respond well to IV labetalol and is now 133/80. Patient be transferred per EMS to [facility] for further care.
[2022-04-24 23:22] LABS: Basophils % (A) 0 %; Eosinophils % (A) 0 %; HCT 31.8 % (34.0-46.0); HGB 11.1 gm/dL (11.4-16.0); Hypochromasia Slight; Lymphocytes # (A) 1.9 k/uL (1.0-4.8); Lymphocytes % (A) 15 %; MCH 30.1 pg (25.0-35.0); MCHC 35.1 g/dL (31.0-37.0); MCV 85.8 fL (80.0-100.0); Mean Platelet Volume 11.6; Monocytes # (A) 1.1 k/uL (0-1.0); Monocytes % (A) 9 %; Neutrophils # (A) 9.4 k/uL (1.3-7.7); Neutrophils % (A) 74 %; Platelet Count 212 k/uL (150-450); Poikilocytosis Slight; RDW 14.2 % (11.5-15.5); WBC 12.6 k/uL (3.8-10.6)
--- NOTE | 2022-04-24 23:27 | P.DS ---
Providers Expected date of discharge: 04/24/22 Attending physician: Ziggy Dubon Primary care physician: Stated None - Discharge Diagnosis(es) (1) 34 weeks gestation of Current Visit: Yes Status: Acute (2) Pre-eclampsia Current Visit: No Status: Acute Hospital Course: Please see dictated admission/transfer note on this patient's triage visit. Brief summary pleasant 27-year-old 3 para 1 female 33 weeks gestation with persistent gestational hypertension/preeclampsia due to patient's gestatio nal age she is ready transferred to [facility] for further care. Patient stable to time of transfer on magnesium sulfate Patient Condition at Discharge: Stable Plan - Discharge Summary New Discharge Prescriptions: No Action [id number] Acid [-U Capsule (formulary)] 1 cap PO DAILY Aspirin 81 mg PO DAILY Discharge Medication List Aspirin 81 mg PO DAILY 04/21/22 [History] Yfp-[id number] Acid [-U Capsule (formulary)] 1 cap PO DAILY 04/21/22 [History] Discharge Disposition: OTHER INSTITUTION NOT DEFINED
[2022-04-24 23:43] LABS: INR 0.8 (<1.2); Prothrombin Time 9.4 sec (9.0-12.0)
[2022-04-25 00:02] LABS: Appearance,Urine Cloudy (Clear); Bacteria,Urine Occasional /hpf; Bilirubin,Urine Negative (Negative); Blood,Urine Negative (Negative); Color,Urine Light Yellow; Glucose,Urine (UA) Negative (Negative); Ketones,Urine Negative (Negative); Leukocyte Esterase,Urine Large (Negative); Mucus,Urine Rare /hpf; Nitrite,Urine Negative (Negative); Protein,Urine Negative (Negative); RBC,Urine <1 /hpf (0-5); Specific Gravity,Urine 1.009 (1.001-1.035); Squamous Epithelial Cell,Urine 5 /hpf (0-4); Urobilinogen,Urine <2.0 mg/dL (<2.0); WBC,Urine 4 /hpf (0-5)
[2022-04-25 00:08] LABS: Partial Thromboplastin Time 20.5 sec (22.0-30.0)
[2022-04-25 00:17] LABS: Large Platelets Present
[2022-04-25 00:45] VITALS: BP 161/109; PULSE 70; RESP 16; TEMP 97
--- NOTE | 2022-04-25 08:20 | P.MSEPDOC ---
Presenting Problems - Arrival Data Date of Arrival on Unit: 04/24/22 Time of Arrival on Unit: 21:26 Mode of Transport: Ambulatory - Complaint OB-Reason for Admission/Chief Complaint: Other Comment: Pt presents to triage with c/o feeling increased pressure that started around. 1929. Pt states she was just in [place] and stayed in hospital for 3 days before being. discharged. Medical History - Information : 3 Para: 1 Term: 0 : 1 Abortions: Spontaneous or Elective: 1 Number of Living Children: 1 - Gestational Age Gestational Age by LILIBETH (wks/days): 33 Weeks and 1 Days - History Complications: Preeclampsia Comment: Pt presents to triage with c/o feeling increased pressure that started around. 1930. Pt states she was just in [place] [facility] and stayed in hospital for 3 days before being. discharged. Review of Systems - Review of Systems Constitutional: No problems Breast: No problems ENT: No problems Cardiovascular: No problems Respiratory: No problems Gastrointestinal: No problems Genitourinary: No problems Musculoskeletal: No problems Neurological: No problems Skin: No problems Vital Signs - Temperature Temperature: 97.0 F Temperature Source: Oral - Pulse Pulse Oximetery Pulse Rate: 70 Pulse Assessment Method: Automatic Cuff - Respirations Respiratory Rate: 16 Oxygen Delivery Method: Room Air O2 Sat by Pulse Oximetry: 100 - Blood Pressure Right Arm Blood Pressure: 161/109 Blood Pressure Mean: 126 Blood Pressure Source: Automatic Cuff Medical Screen Scoring - Cervical Exam Dilation (cm): 1 Effacement (%): 60 Station: -2 Membranes: Intact - Uterine Contractions Resting: Soft to palpation - Assessment - Baby A Baseline FHR: 140 Heart Rate - NICHD Category: Category I (Normal) NST: Reactive Physician Notification - Physician Notified Physician Notified Date: 04/25/22 Physician Notified Time: 21:43 New Order Received: Yes - Notification Comment Comment: RN spoke with Dr. Dubon via telephone regarding maternal status, . status, Catagory 1 heart tones. RN explained that patient was just transfered from our. facililty for preclampsia to [place] and discharged home 04/21 on Imitrex for headaches,. Patient was not given anything to treat blood pressure on discharge. Dr. Dubon told RN to keep patient for one hr and do not check patient cervix,. do not perform FFN on patient. Dr. Dubon called unit to receive update on patient BP and Zakia RN answered. phone and gave Dr. Dubon patients BP and Dr. Dubon would like PIH labs, start and IV. and transfer patient. Maternal Triage Index - Stat/Priority 1 Stat Priority 1: Yes Provider Notified: Ziggy Dubon Provider Notified Time: 21:43 Criteria Met for Priority 1: Patient BP 161/109 HR 70. Disposition - Disposition OB Disposition: Transfer to other dept./facility Transferred to:: [facility] Discharge Date: 04/24/22 Discharge Time: 23:56 I agree with the RN Medical Screening Exam: Yes Case reviewed; plan agreed upon as documented in EMR&OBIX.: Yes Diagnosis: GESTATIONAL HTN W/O SIGNIFICANT PROTEINURIA, THIRD TRIMESTER (Patient stabilized and transferred back to [facility] due to prematurity.)
== END | disposition other institution (70) ==
LOC: FBPOP 21:26
PROVIDERS: ATTEND Obstetrics & Gynecology
DX: O13.3 Gestational [pregnancy-induced] hypertension without significant proteinuria, third trimester (principal); O11.3 Pre-existing hypertension with pre-eclampsia, third trimester; M19.90 Unspecified osteoarthritis, unspecified site; J45.909 Unspecified asthma, uncomplicated; J81.1 Chronic pulmonary edema; Z3A.34 34 weeks gestation of pregnancy
CPT/HCPCS: 59025; 96365; 96366; 96367; 96375; 82570; 84156; 82565; 83615; 84450; 84460; 84520; 84550; 85025; 85384; 85610; 85730; 81001; G0463; J3475 ×2; 99215

== ENCOUNTER → 2022-06-14 | Outpatient (CLI) | payer OTHER | END | disposition home or self-care (01) | LOC: LABWHC1 11:09 | PROVIDERS: ATTEND Obstetrics & Gynecology | DX: N91.2 Amenorrhea, unspecified (principal) | CPT/HCPCS: 36415; 84702 ==

== ENCOUNTER 2022-12-20 15:42 | Emergency (ER) | payer OTHER ==
[2022-12-20 16:24] LABS: Basophils % (A) 0 %; Eosinophils # (A) 0.1 k/uL (0-0.7); Eosinophils % (A) 1 %; HCT 43.2 % (34.0-46.0); HGB 14.7 gm/dL (11.4-16.0); Lymphocytes # (A) 1.2 k/uL (1.0-4.8); Lymphocytes % (A) 16 %; MCH 29.7 pg (25.0-35.0); MCV 87.4 fL (80.0-100.0); Mean Platelet Volume 8.4; Monocytes # (A) 0.3 k/uL (0-1.0); Monocytes % (A) 4 %; Neutrophils # (A) 6.1 k/uL (1.3-7.7); Neutrophils % (A) 78 %; Platelet Count 334 k/uL (150-450); RBC 4.94 m/uL (3.80-5.40); RDW 14.8 % (11.5-15.5); WBC 7.8 k/uL (3.8-10.6)
[2022-12-20 16:32] LABS: Partial Thromboplastin Time 25.3 sec (22.0-30.0); Prothrombin Time 10.6 sec (9.0-12.0)
[2022-12-20 16:36] LABS: ALT 30 U/L (4-34); AST 46 U/L (14-36); African American GFR (CKD) >90 (>60 ml/min/1.73 sqM); Albumin 4.8 g/dL (3.5-5.0); Alkaline Phosphatase 107 U/L (38-126); Anion Gap 12 mmol/L; Blood Urea Nitrogen 9 mg/dL (7-17); Carbon Dioxide 23 mmol/L (22-30); Chloride 102 mmol/L (98-107); Glucose 85 mg/dL (74-99); Magnesium 1.8 mg/dL (1.6-2.3); Non-African American GFR(CKD) >90 (>60 ml/min/1.73 sqM); Potassium 4.4 mmol/L (3.5-5.1); Sodium 137 mmol/L (137-145); Total Bilirubin 1.7 mg/dL (0.2-1.3)
--- NOTE | 2022-12-20 16:39 | XR ---
EXAMINATION TYPE: XR chest 2V DATE OF EXAM: 12/20/2022 COMPARISON: None INDICATION: Chest pain TECHNIQUE: Frontal and lateral views of the chest are obtained. FINDINGS: The heart size is normal. The pulmonary vasculature is normal. The lungs are clear. IMPRESSION: 1. No acute pulmonary process.
[2022-12-20] MEDS ORDERED: SODIUM CHLORIDE 0.9% 1,000 ML IV ONE (18:21)
--- NOTE | 2022-12-20 18:27 | ED ---
General Adult HPI - General Chief complaint: Chest Pain Stated complaint: Chest Pain,Sob Time Seen by Provider: 12/20/22 18:15 Source: patient, RN notes reviewed, old records reviewed Mode of arrival: ambulatory Limitations: no limitations - History of Present Illness Initial comments: 27-year-old female presenting for evaluation of left-sided chest pain, palpitations, dyspnea. Patient states she was at rest when she developed her symptoms. She'll contact urgent care was noted to be tachycardic and sent to the emergency department for evaluation. She states her symptoms have somewhat improved but she still feels palpitations. Patient has no prior history of arrhythmia. She takes Adderall and no other daily medications. Denies fever. Denies cough. - Related Data Home Medications Medication Instructions Recorded Confirmed Albuterol Inhaler [Ventolin Hfa 2 puff INHALATION RT-Q6H PRN 12/20/22 12/20/22 Inhaler] Loratadine [Claritin] 10 mg PO DAILY PRN 12/20/22 12/20/22 Allergies Allergy/AdvReac Type Severity Reaction Status Date / Time No Known Allergies Allergy Verified 12/20/22 19:06 Review of Systems ROS Statement: Those systems with pertinent positive or pertinent negative responses have been documented in the HPI. ROS Other: All systems not noted in ROS Statement are negative. Past Medical History Past Medical History: Asthma, Osteoarthritis (OA) Additional Past Medical History / Comment(s): Personality disorder-Border Line Personality Disorder; severe preeclampsia with her first with delivery at 34 weeks. History of Any Multi-Drug Resistant Organisms: None Reported Past Surgical History: Orthopedic Surgery Additional Past Surgical History / Comment(s): orthopedic surgery on right foot Past Anesthesia/Blood Transfusion Reactions: No Reported Reaction Past Psychological History: ADD/ADHD, Anxiety, Depression, PTSD Smoking Status: Never smoker Past Alcohol Use History: None Reported Past Drug Use History: None Reported - Past Family History Mother Family Medical History: Asthma Additional Family Medical History / Comment(s): ovarian cysts Father Family Medical History: Unable to Obtain General Exam Limitations: no limitations General appearance: alert, in no apparent distress Head exam: Present: atraumatic, normocephalic Eye exam: Present: normal appearance, PERRL ENT exam: Present: normal exam Neck exam: Present: normal inspection. Absent: tenderness, meningismus Respiratory exam: Present: normal lung sounds bilaterally. Absent: respiratory distress, wheezes, rales Cardiovascular Exam: Present: normal rhythm, tachycardia GI/Abdominal exam: Present: soft. Absent: distended, tenderness, guarding Extremities exam: Present: normal inspection, normal capillary refill. Absent: pedal edema, calf tenderness Neurological exam: Present: alert, oriented X3, CN II-XII intact. Absent: motor sensory deficit Psychiatric exam: Present: normal affect, normal mood Skin exam: Present: warm, dry, intact. Absent: cyanosis, diaphoretic Course Vital Signs 12/20/22 12/20/22 12/20/22 15:49 18:50 19:28 Temperature 97.3 F L 98.6 F 98.3 F Pulse Rate 120 H 99 108 H Respiratory 18 18 16 Rate Blood Pressure 167/102 148/108 144/104 O2 Sat by Pulse 97 97 100 Oximetry 12/20/22 12/20/22 12/20/22 19:33 19:36 19:40 Temperature Pulse Rate 95 90 107 H Respiratory 15 Rate Blood Pressure 144/104 147/108 O2 Sat by Pulse 78 L 100 Oximetry 12/20/22 12/20/22 12/20/22 19:50 20:00 20:20 Temperature Pulse Rate 94 96 81 Respiratory Rate Blood Pressure O2 Sat by Pulse 100 95 Oximetry 12/20/22 12/20/22 12/20/22 20:30 20:40 20:50 Temperature Pulse Rate 85 96 89 Respiratory 14 13 11 L Rate Blood Pressure 151/106 146/119 O2 Sat by Pulse 100 100 100 Oximetry 12/20/22 12/20/22 21:00 21:10 Temperature Pulse Rate 84 86 Respiratory 20 13 Rate Blood Pressure 151/112 O2 Sat by Pulse 99 100 Oximetry Medical Decision Making - Medical Decision Making Was pt. sent in by a medical professional or institution (, PA, BOX MACHINE OPERATOR, urgent care, hospital, or senior care...) When possible be specific @ -[No] Did you speak to anyone other than the patient for history (EMS, parent, family, police, friend...)? What history was obtained from this source @ -[No] Did you review nursing and triage notes (agree or disagree)? Why? @ -[I reviewed and agree with nursing and triage notes] Were old charts reviewed (outside hosp., previous admission, EMS record, old EKG, old radiological studies, urgent care reports/EKG's, senior care records)? Report findings @ -[No old charts were reviewed] Differential Diagnosis (chest pain, altered mental status, abdominal pain women, abdominal pain men, vaginal bleeding, weakness, fever, dyspnea, syncope, headache, dizziness, GI bleed, back pain, seizure, CVA, palpatations, mental health, musculoskeletal)? @ -Differential Chest Pain: Stable Angina, Unstable Angina, STEMI, NSTEMI Aortic Dissection, Pneumothorax, Musculoskeletal, Esophageal Spasm GERD, Cholecystitis, Pancreatitis, Zoster, this is not meant to be an all-inclusive list. EKG interpreted by me (3pts min.). @ Sinus tachycardia short AL interval, incomplete right bundle-branch block, rate of 107, AL interval 100, QRS duration 110, QTC 410 X-rays interpreted by me (1pt min.). @ -[Chest x-ray showing no pneumothorax, no focal pneumonia, normal cardiac silhouette CT interpreted by me (1pt min.). @ CT angiography negative for for acute findings U/S interpreted by me (1pt. min.). @ -[None done] What testing was considered but not performed or refused? (CT, X-rays, U/S, labs)? Why? @ -[None] What meds were considered but not given or refused? Why? @ -[None] Did you discuss the management of the patient with other professionals (professionals i.e. , PA, BOX MACHINE OPERATOR, lab, RT, psych nurse, social scientist, lump roller, teacher, hydrological technical officer, shelter case manager)? Give summary @ -[No] Was smoking cessation discussed for >3mins.? @ -[No] Was critical care preformed (if so, how long)? @ -[No] Were there social determinants of health that impacted care today? How? (Homelessness, low income, unemployed, alcoholism, drug addiction, transportation, low edu. Level, literacy, decrease access to med. care, ch[facility], rehab)? @ -[No] Was there de-escalation of care discussed even if they declined (Discuss DNR or withdrawal of care, Hospice)? DNR status @ -[No] What co-morbidities impacted this encounter? (DM, HTN, Smoking, COPD, CAD, Cancer, CVA, ARF, Chemo, Hep., AIDS, mental health diagnosis, sleep apnea, morbid obesity)? @ -[None] Was patient admitted / discharged? Hospital course, mention meds given and route, prescriptions, significant lab abnormalities, going to OR and other pertinent info. @ -[Preseptal female presenting with atypical left-sided chest pain worse with movement. Patient is hypertensive and states she has history of 2 episodes of preeclampsia but has never been diagnosed with hypertension previously. She denies current . She states that she would have been very tachycardic and EKG does show sinus tachycardia. Workup in the emergency department reveals an normal CBC, normal CMP, negative troponin, negative d-dimer. Patient had persistent pain and was quite uncomfortable and therefore I did perform CT imaging of the chest which was also negative. Pain improved on atenolol reevaluation after Toradol and IV fluids, heart rate has normalized. I do feel this patient stable for continued outpatient follow-up. She should follow closely with her primary care physician given the elevated blood pressure in the emergency department. Undiagnosed new problem with uncertain prognosis? @ -[No] Drug Therapy requiring intensive monitoring for toxicity (Heparin, Nitro, Insulin, Cardizem)? @ -[No] Were any procedures done? @ -[No] Diagnosis/symptom? @ -[-Atypical chest pain, Acute, or Chronic, or Acute on Chronic? @ acute Uncomplicated (without systemic symptoms) or Complicated (systemic symptoms)? @ -[default] Side effects of treatment? @ -[No] Exacerbation, Progression, or Severe Exacerbation? @ -[No] Poses a threat to life or bodily function? How? (Chest pain, [place], [place], pneumonia, PE, COPD, DKA, ARF, appy, cholecystitis, CVA, Diverticulitis, Homicidal, Suicidal, threat to staff... and all critical care pts) @ -[Yes, chest pain - Lab Data Result diagrams: 12/20/22 15:58 12/20/22 15:58 Lab Results 12/20/22 12/20/22 12/20/22 Range/Units 15:58 15:58 15:58 WBC 7.8 (3.8-10.6) k/uL RBC 4.94 (3.80-5.40) m/uL Hgb 14.7 (11.4-16.0) gm/dL Hct 43.2 (34.0-46.0) % MCV 87.4 (80.0-100.0) fL MCH 29.7 (25.0-35.0) pg MCHC 34.0 (31.0-37.0) g/dL RDW 14.8 (11.5-15.5) % Plt Count 334 (150-450) k/uL MPV 8.4 Neutrophils % 78 % Lymphocytes % 16 % Monocytes % 4 % Eosinophils % 1 % Basophils % 0 % Neutrophils # 6.1 (1.3-7.7) k/uL Lymphocytes # 1.2 (1.0-4.8) k/uL Monocytes # 0.3 (0-1.0) k/uL Eosinophils # 0.1 (0-0.7) k/uL Basophils # 0.0 (0-0.2) k/uL PT 10.6 (9.0-12.0) sec INR 1.0 (<1.2) APTT 25.3 (22.0-30.0) sec D-Dimer (<0.60) mg/L FEU Sodium 137 (137-145) mmol/L Potassium 4.4 (3.5-5.1) mmol/L Chloride 102 (98-107) mmol/L Carbon Dioxide 23 (22-30) mmol/L Anion Gap 12 mmol/L BUN 9 (7-17) mg/dL Creatinine 0.60 (0.52-1.04) mg/dL Est GFR (CKD-EPI)AfAm >90 (>60 ml/min/1.73 sqM) Est GFR (CKD-EPI)NonAf >90 (>60 ml/min/1.73 sqM) Glucose 85 (74-99) mg/dL Calcium 10.0 (8.4-10.2) mg/dL Magnesium 1.8 (1.6-2.3) mg/dL Total Bilirubin 1.7 H (0.2-1.3) mg/dL AST 46 H (14-36) U/L ALT 30 (4-34) U/L Alkaline Phosphatase 107 (38-126) U/L Troponin I (0.000-0.034) ng/mL Total Protein 8.0 (6.3-8.2) g/dL Albumin 4.8 (3.5-5.0) g/dL Urine Color Urine Appearance (Clear) Urine pH (5.0-8.0) Ur Specific [place] (1.001-1.035) Urine Protein (Negative) Urine Glucose (UA) (Negative) Urine Ketones (Negative) Urine Blood (Negative) Urine Nitrite (Negative) Urine Bilirubin (Negative) Urine Urobilinogen (<2.0) mg/dL Ur Leukocyte Esterase (Negative) Urine RBC (0-5) /hpf Urine WBC (0-5) /hpf Ur Squamous Epith Cells (0-4) /hpf Urine HCG, Qual (Not Detectd) Urine Opiates Screen (NotDetected) Ur Oxycodone Screen (NotDetected) Urine Methadone Screen (NotDetected) Ur Propoxyphene Screen (NotDetected) Ur Barbiturates Screen (NotDetected) U Tricyclic Antidepress (NotDetected) Ur Phencyclidine Scrn (NotDetected) Ur Amphetamines Screen (NotDetected) U Methamphetamines Scrn (NotDetected) U Benzodiazepines Scrn (NotDetected) Urine Cocaine Screen (NotDetected) U Marijuana (THC) Screen (NotDetected) 12/20/22 12/20/22 12/20/22 Range/Units 15:58 18:21 18:47 WBC (3.8-10.6) k/uL RBC (3.80-5.40) m/uL Hgb (11.4-16.0) gm/dL Hct (34.0-46.0) % MCV (80.0-100.0) fL MCH (25.0-35.0) pg MCHC (31.0-37.0) g/dL RDW (11.5-15.5) % Plt Count (150-450) k/uL MPV Neutrophils % % Lymphocytes % % Monocytes % % Eosinophils % % Basophils % % Neutrophils # (1.3-7.7) k/uL Lymphocytes # (1.0-4.8) k/uL Monocytes # (0-1.0) k/uL Eosinophils # (0-0.7) k/uL Basophils # (0-0.2) k/uL PT (9.0-12.0) sec INR (<1.2) APTT (22.0-30.0) sec D-Dimer <0.17 (<0.60) mg/L FEU Sodium (137-145) mmol/L Potassium (3.5-5.1) mmol/L Chloride (98-107) mmol/L Carbon Dioxide (22-30) mmol/L Anion Gap mmol/L BUN (7-17) mg/dL Creatinine (0.52-1.04) mg/dL Est GFR (CKD-EPI)AfAm (>60 ml/min/1.73 sqM) Est GFR (CKD-EPI)NonAf (>60 ml/min/1.73 sqM) Glucose (74-99) mg/dL Calcium (8.4-10.2) mg/dL Magnesium (1.6-2.3) mg/dL Total Bilirubin (0.2-1.3) mg/dL AST (14-36) U/L ALT (4-34) U/L Alkaline Phosphatase (38-126) U/L Troponin I <0.012 (0.000-0.034) ng/mL Total Protein (6.3-8.2) g/dL Albumin (3.5-5.0) g/dL Urine Color Light Yellow Urine Appearance Clear (Clear) Urine pH 7.0 (5.0-8.0) Ur Specific [place] 1.006 (1.001-1.035) Urine Protein Negative (Negative) Urine Glucose (UA) Negative (Negative) Urine Ketones 3+ H (Negative) Urine Blood Moderate H (Negative) Urine Nitrite Negative (Negative) Urine Bilirubin Negative (Negative) Urine Urobilinogen <2.0 (<2.0) mg/dL Ur Leukocyte Esterase Trace H (Negative) Urine RBC <1 (0-5) /hpf Urine WBC 3 (0-5) /hpf Ur Squamous Epith Cells 2 (0-4) /hpf Urine HCG, Qual (Not Detectd) Urine Opiates Screen (NotDetected) Ur Oxycodone Screen (NotDetected) Urine Methadone Screen (NotDetected) Ur Propoxyphene Screen (NotDetected) Ur Barbiturates Screen (NotDetected) U Tricyclic Antidepress (NotDetected) Ur Phencyclidine Scrn (NotDetected) Ur Amphetamines Screen (NotDetected) U Methamphetamines Scrn (NotDetected) U Benzodiazepines Scrn (NotDetected) Urine Cocaine Screen (NotDetected) U Marijuana (THC) Screen (NotDetected) 12/20/22 12/20/22 Range/Units 18:47 18:47 WBC (3.8-10.6) k/uL RBC (3.80-5.40) m/uL Hgb (11.4-16.0) gm/dL Hct (34.0-46.0) % MCV (80.0-100.0) fL MCH (25.0-35.0) pg MCHC (31.0-37.0) g/dL RDW (11.5-15.5) % Plt Count (150-450) k/uL MPV Neutrophils % % Lymphocytes % % Monocytes % % Eosinophils % % Basophils % % Neutrophils # (1.3-7.7) k/uL Lymphocytes # (1.0-4.8) k/uL Monocytes # (0-1.0) k/uL Eosinophils # (0-0.7) k/uL Basophils # (0-0.2) k/uL PT (9.0-12.0) sec INR (<1.2) APTT (22.0-30.0) sec D-Dimer (<0.60) mg/L FEU Sodium (137-145) mmol/L Potassium (3.5-5.1) mmol/L Chloride (98-107) mmol/L Carbon Dioxide (22-30) mmol/L Anion Gap mmol/L BUN (7-17) mg/dL Creatinine (0.52-1.04) mg/dL Est GFR (CKD-EPI)AfAm (>60 ml/min/1.73 sqM) Est GFR (CKD-EPI)NonAf (>60 ml/min/1.73 sqM) Glucose (74-99) mg/dL Calcium (8.4-10.2) mg/dL Magnesium (1.6-2.3) mg/dL Total Bilirubin (0.2-1.3) mg/dL AST (14-36) U/L ALT (4-34) U/L Alkaline Phosphatase (38-126) U/L Troponin I (0.000-0.034) ng/mL Total Protein (6.3-8.2) g/dL Albumin (3.5-5.0) g/dL Urine Color Urine Appearance (Clear) Urine pH (5.0-8.0) Ur Specific [place] (1.001-1.035) Urine Protein (Negative) Urine Glucose (UA) (Negative) Urine Ketones (Negative) Urine Blood (Negative) Urine Nitrite (Negative) Urine Bilirubin (Negative) Urine Urobilinogen (<2.0) mg/dL Ur Leukocyte Esterase (Negative) Urine RBC (0-5) /hpf Urine WBC (0-5) /hpf Ur Squamous Epith Cells (0-4) /hpf Urine HCG, Qual Not Detected (Not Detectd) Urine Opiates Screen Not Detected (NotDetected) Ur Oxycodone Screen Not Detected (NotDetected) Urine Methadone Screen Not Detected (NotDetected) Ur Propoxyphene Screen Not Detected (NotDetected) Ur Barbiturates Screen Not Detected (NotDetected) U Tricyclic Antidepress Not Detected (NotDetected) Ur Phencyclidine Scrn Not Detected (NotDetected) Ur Amphetamines Screen Detected H (NotDetected) U Methamphetamines Scrn Not Detected (NotDetected) U Benzodiazepines Scrn Not Detected (NotDetected) Urine Cocaine Screen Not Detected (NotDetected) U Marijuana (THC) Screen Not Detected (NotDetected) Disposition Clinical Impression: Atypical chest pain, Hypertension Disposition: HOME SELF-CARE Condition: Fair Instructions (If sedation given, give patient instructions): Chest Pain (ED), Hypertension (ED) Additional Instructions: Please follow closely with her primary care physician regarding both her chest pain and your elevated blood pressure. Is patient prescribed a controlled substance at d/c from ED?: No Referrals: Pamela Layton MD [Primary Care Provider] - 1-2 days Time of Disposition: 21:31
[2022-12-20 19:20] LABS: Appearance,Urine Clear (Clear); Bilirubin,Urine Negative (Negative); Blood,Urine Moderate (Negative); Color,Urine Light Yellow; Glucose,Urine (UA) Negative (Negative); Ketones,Urine 3+ (Negative); Leukocyte Esterase,Urine Trace (Negative); Nitrite,Urine Negative (Negative); Protein,Urine Negative (Negative); RBC,Urine <1 /hpf (0-5); Specific Gravity,Urine 1.006 (1.001-1.035); Squamous Epithelial Cell,Urine 2 /hpf (0-4); Urobilinogen,Urine <2.0 mg/dL (<2.0); WBC,Urine 3 /hpf (0-5)
[2022-12-20] MEDS ORDERED: KETOROLAC 15 MG/ML 1 ML VIAL IVP STA (19:42)
--- NOTE | 2022-12-20 20:29 | CT ---
EXAMINATION TYPE: CT angio chest CT DLP: 162.2 mGycm, Automated exposure control for dose reduction was used. DATE OF EXAM: 12/20/2022 8:18 PM COMPARISON: Chest radiograph from same day. Multiple CTs of the chest with most recent on 10/04/2017 . CLINICAL INDICATION:Female, 27 years old with history of cp; pain, dyspnea TECHNIQUE/CONTRAST: CTA scan of the thorax is performed with IV Contrast, patient injected with 100ml mL of Isovue 370, p ulmonary embolism protocol. MIP images are created and reviewed these are created on a separate work station.. FINDINGS: Pulmonary Artery: There is no evidence for a filling defect within the pulmonary vasculature to sugge st acute pulmonary embolism. The pulmonary artery is of normal size. Lungs/Pleura: No evidence of focal consolidation, pleural effusion or pneumothorax. Airway: Large airways are patent. Heart: Heart is within normal limits for size. Vasculature: No evidence of aortic aneurysm. Mediastinum: No gross evidence of adenopathy. Musculoskeletal: No acute osseous abnormalities Soft Tissues: Unremarkable. Lower neck: No significant findings. Upper Abdomen: No significant findings. IMPRESSION: No evidence of pulmonary embolism.
[2022-12-20 21:02] LABS: Amphetamine Screen,Urine Detected (NotDetected); Barbiturate Screen,Urine Not Detected (NotDetected); Benzodiazepines Screen,Urine Not Detected (NotDetected); Cocaine Screen,Urine Not Detected (NotDetected); Methadone Screen, Urine Not Detected (NotDetected); Opiate Screen,Urine Not Detected (NotDetected); Oxycodone Screen, Urine Not Detected (NotDetected); Phencyclidine Screen,Urine Not Detected (NotDetected); Tricyclic Antidepressant,Urine Not Detected (NotDetected); Urn Cannabinoid Scrn Not Detected (NotDetected)
[2022-12-20 22:08] VITALS: BP 153/92; PULSE 70; RESP 16; TEMP 98.8
== END 2022-12-20 22:10 | disposition home or self-care (01) ==
LOC: EC 15:42
DX: I10 Essential (primary) hypertension (principal); J45.909 Unspecified asthma, uncomplicated; Z79.899 Other long term (current) drug therapy
CPT/HCPCS: 36415; 93005; 85379; 80053; 83735; 84484; 85025; 85610; 85730; 81001; 81025; 80306; 71046; 71275; 99285; 96374; 96361; J1885; Q9967

== ENCOUNTER 2023-04-19 18:37 | Emergency (ER) | payer OTHER ==
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
[2023-04-19 21:39] VITALS: BP 123/75; PULSE 88; RESP 16; TEMP 97.9
== END 2023-04-19 21:35 | disposition home or self-care (01) ==
LOC: EC 18:37
DX: M54.2 Cervicalgia (principal); J45.909 Unspecified asthma, uncomplicated; M19.90 Unspecified osteoarthritis, unspecified site; F41.9 Anxiety disorder, unspecified; F32.A Depression, unspecified; Z79.899 Other long term (current) drug therapy; V49.40XA Driver injured in collision with unspecified motor vehicles in traffic accident, initial encounter
CPT/HCPCS: 70450; 72125; 99284

== ENCOUNTER → 2023-05-05 | Outpatient (CLI) | payer OTHER ==
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
== END | disposition home or self-care (01) ==
LOC: RADUSWWP 07:10
PROVIDERS: ATTEND Obstetrics & Gynecology
DX: R10.2 Pelvic and perineal pain (principal); Z97.5 Presence of (intrauterine) contraceptive device
CPT/HCPCS: 76830; 76856

== ENCOUNTER 2024-03-10 19:27 | Emergency (ER) | payer OTHER ==
[2024-03-10 19:37] VITALS: PULSE 88; TEMP 98.2
--- NOTE | 2024-03-10 20:32 | ED ---
Abdominal Pain HPI - General Chief Complaint: Abdominal Pain Stated Complaint: abd pain Time Seen by Provider: 03/10/24 20:30 Source: patient, RN notes reviewed Mode of arrival: ambulatory Limitations: no limitations - History of Present Illness Initial Comments: 29-year-old female presenting with abdominal pain x 2 days. States she began having this pain immediately after sexual intercourse and describes the pain as a shooting pain in the middle of the lower abdomen. States the pain has improved, however she is still experiencing "bloating" and "discomfort" in the center of the abdomen to the pelvis. Denies fever, vomiting, constipation, diarrhea, urinary symptoms, vaginal discharge, vaginal bleeding. She has a history of an IUD. Denies other abdominal surgeries or conditions. - Related Data Home Medications Medication Instructions Recorded Confirmed Albuterol Inhaler [Ventolin Hfa 2 puff INHALATION RT-Q6H PRN 12/20/22 12/20/22 Inhaler] Loratadine [Claritin] 10 mg PO DAILY PRN 12/20/22 12/20/22 Allergies Allergy/AdvReac Type Severity Reaction Status Date / Time No Known Allergies Allergy Verified 03/10/24 19:37 Review of Systems ROS Statement: Those systems with pertinent positive or pertinent negative responses have been documented in the HPI. ROS Other: All systems not noted in ROS Statement are negative. Past Medical History Past Medical History: Asthma, Osteoarthritis (OA) Additional Past Medical History / Comment(s): Personality disorder-Border Line Personality Disorder; severe preeclampsia with her first with delivery at 34 weeks. History of Any Multi-Drug Resistant Organisms: None Reported Past Surgical History: Orthopedic Surgery Additional Past Surgical History / Comment(s): orthopedic surgery on right foot Past Anesthesia/Blood Transfusion Reactions: No Reported Reaction Past Psychological History: ADD/ADHD, Anxiety, Depression, PTSD Smoking Status: Never smoker Past Alcohol Use History: Occasional Past Drug Use History: None Reported - Past Family History Mother Family Medical History: Asthma Additional Family Medical History / Comment(s): ovarian cysts Father Family Medical History: Unable to Obtain General Exam Limitations: no limitations General appearance: alert, in no apparent distress Head exam: Present: atraumatic, normocephalic, normal inspection Eye exam: Present: normal appearance, PERRL, EOMI. Absent: scleral icterus, conjunctival injection, periorbital swelling Respiratory exam: Present: normal lung sounds bilaterally. Absent: respiratory distress, wheezes, rales, rhonchi, stridor Cardiovascular Exam: Present: regular rate, normal rhythm, normal heart sounds. Absent: systolic murmur, diastolic murmur, rubs, gallop, clicks GI/Abdominal exam: Present: soft, normal bowel sounds. Absent: distended, tenderness, guarding, rebound, rigid Back exam: Absent: CVA tenderness (R), CVA tenderness (L) Neurological exam: Present: alert, oriented X3 Psychiatric exam: Present: normal affect, normal mood Skin exam: Present: warm, dry, intact, normal color. Absent: rash Course Vital Signs 03/10/24 19:32 Temperature 98.2 F Pulse Rate 88 Respiratory 17 Rate Blood Pressure 137/98 O2 Sat by Pulse 96 Oximetry Medical Decision Making - Medical Decision Making Was pt. sent in by a medical professional or institution (Dr. PA, ADMINISTRATIVE SUPPORT ASSOCIATE, urgent care, hospital, or long-term...) When possible be specific @ -No Did you speak to anyone other than the patient for history (EMS, parent, family, police, friend...)? What history was obtained from this source @ -No Did you review nursing and triage notes (agree or disagree)? Why? @ -I reviewed and agree with nursing and triage notes Were old charts reviewed (outside hosp., previous admission, EMS record, old EKG, old radiological studies, urgent care reports/EKG's, long-term records)? Report findings @ -No old charts were reviewed Differential Diagnosis (chest pain, altered mental status, abdominal pain women, abdominal pain men, vaginal bleeding, weakness, fever, dyspnea, syncope, heada neeta, dizziness, GI bleed, back pain, seizure, CVA, palpatations, mental health, musculoskeletal)? @ -Differential Abdominal Pain Women: Appendicitis, Cholecystitis, diverticulosis, ischemic bowel, pancreatitis, hepatitis, UTI, gastroenteritis, AAA, incarcerated hernia, bowel obstruction, constipation, inflammatory bowel, hepatitis, peptic ulcer disease, splenic infarction, perforated viscus, vulvitis, ovarian torsion, PID, kidney stone, placenta abruption, this is not meant to be an all-inclusive list EKG interpreted by me (3pts min.). @ -None X-rays interpreted by me (1pt min.). @ -None done CT interpreted by me (1pt min.). @ -None done U/S interpreted by me (1pt. min.). @ -Ultrasound revealed no acute process, IUD appropriate placement, appropriate arterial and venous waveforms right ovary, left ovary not visualized What testing was considered but not performed or refused? (CT, X-rays, U/S, labs)? Why? @ -None What meds were considered but not given or refused? Why? @ -None Did you discuss the management of the patient with other professionals (professionals i.e. , PA, ADMINISTRATIVE SUPPORT ASSOCIATE, lab, RT, psych nurse, manager social responsibility, vp cardiovascular service line, teacher, licensed loan officer assistant, case assembler)? Give summary @ -No Was smoking cessation discussed for >3mins.? @ -No Was critical care preformed (if so, how long)? @ -No Were there social determinants of health that impacted care today? How? (Homelessness, low income, unemployed, alcoholism, drug addiction, transportation, low edu. Level, literacy, decrease access to med. care, prison, rehab)? @ -No Was there de-escalation of care discussed even if they declined (Discuss DNR or withdrawal of care, Hospice)? DNR status @ -No What co-morbidities impacted this encounter? (DM, HTN, Smoking, COPD, CAD, Cancer, CVA, ARF, Chemo, Hep., AIDS, mental health diagnosis, sleep apnea, morbid obesity)? @ -None Was patient admitted / discharged? Hospital course, mention meds given and route, prescriptions, significant lab abnormalities, going to OR and other pertinent info. @ -Patient was discharged. Patient was seen and evaluated for low abdominal pain x 2 days. No red flag symptoms. Vital signs are within normal limits. No abdominal tenderness to palpation. Lab work including CBC, CMP, lactic acid is unremarkable. Ultrasound of pelvis reveals no acute process, IUD is appropriately placed. There is appropriate arterial and venous waveforms of right ovary, left ovary not visualized due to overlying bowel gas. Urine is unremarkable. Discussed findings with patient. Discussed there are no signs of emergent etiology causing symptoms at this time. Discharged with Zofran for nausea. Strict return precautions. Advise follow-up with PCP/OBGYN if symptoms persist. Patient is agreeable to plan. Case was discussed with my ED attending Dr. Pressley. Patient discharged stable condition. Undiagnosed new problem with uncertain prognosis? @ -No Drug Therapy requiring intensive monitoring for toxicity (Heparin, Nitro, Insulin, Cardizem)? @ -No Were any procedures done? @ -No Diagnosis/symptom? @ -Abdominal pain Acute, or Chronic, or Acute on Chronic? @ -Acute Uncomplicated (without systemic symptoms) or Complicated (systemic symptoms)? @ -Uncomplicated Side effects of treatment? @ -No Exacerbation, Progression, or Severe Exacerbation? @ -No Poses a threat to life or bodily function? How? (Chest pain, [place], [place], pneumonia, PE, COPD, DKA, ARF, appy, cholecystitis, CVA, Diverticulitis, Homicidal, Suicidal, threat to staff... and all critical care pts) @ -Not at this time - Lab Data Result diagrams: 03/10/24 20:50 03/10/24 20:50 Lab Results 03/10/24 03/10/24 03/10/24 Range/Units 20:50 20:50 20:50 WBC 6.0 (3.8-10.6) k/uL RBC 4.48 (3.80-5.40) m/uL Hgb 14.2 (11.4-16.0) gm/dL Hct 40.8 (34.0-46.0) % MCV 90.9 (80.0-100.0) fL MCH 31.7 (25.0-35.0) pg MCHC 34.9 (31.0-37.0) g/dL RDW 13.1 (11.5-15.5) % Plt Count 221 (150-450) k/uL MPV 8.4 Neutrophils % 52 % Lymphocytes % 37 % Monocytes % 5 % Eosinophils % 3 % Basophils % 1 % Neutrophils # 3.1 (1.3-7.7) k/uL Lymphocytes # 2.2 (1.0-4.8) k/uL Monocytes # 0.3 (0-1.0) k/uL Eosinophils # 0.2 (0-0.7) k/uL Basophils # 0.0 (0-0.2) k/uL Sodium 143 (137-145) mmol/L Potassium 3.9 (3.5-5.1) mmol/L Chloride 110 H (98-107) mmol/L Carbon Dioxide 24 (22-30) mmol/L Anion Gap 9 mmol/L BUN 3 L (7-17) mg/dL Creatinine 0.78 (0.52-1.04) mg/dL Est GFR (CKD-EPI)AfAm >90 (>60 ml/min/1.73 sqM) Est GFR (CKD-EPI)NonAf >90 (>60 ml/min/1.73 sqM) Glucose 95 (74-99) mg/dL Plasma Lactic Acid Louis 1.5 (0.7-2.0) mmol/L Calcium 9.5 (8.4-10.2) mg/dL Total Bilirubin 0.5 (0.2-1.3) mg/dL AST 26 (14-36) U/L ALT 12 (4-34) U/L Alkaline Phosphatase 65 (38-126) U/L Total Protein 6.8 (6.3-8.2) g/dL Albumin 4.3 (3.5-5.0) g/dL Urine Color Urine Appearance (Clear) Urine pH (5.0-8.0) Ur Specific [place] (1.001-1.035) Urine Protein (Negative) Urine Glucose (UA) (Negative) Urine Ketones (Negative) Urine Blood (Negative) Urine Nitrite (Negative) Urine Bilirubin (Negative) Urine Urobilinogen (<2.0) mg/dL Ur Leukocyte Esterase (Negative) Urine HCG, Qual (Not Detectd) 03/10/24 03/10/24 Range/Units 21:20 21:20 WBC (3.8-10.6) k/uL RBC (3.80-5.40) m/uL Hgb (11.4-16.0) gm/dL Hct (34.0-46.0) % MCV (80.0-100.0) fL MCH (25.0-35.0) pg MCHC (31.0-37.0) g/dL RDW (11.5-15.5) % Plt Count (150-450) k/uL MPV Neutrophils % % Lymphocytes % % Monocytes % % Eosinophils % % Basophils % % Neutrophils # (1.3-7.7) k/uL Lymphocytes # (1.0-4.8) k/uL Monocytes # (0-1.0) k/uL Eosinophils # (0-0.7) k/uL Basophils # (0-0.2) k/uL Sodium (137-145) mmol/L Potassium (3.5-5.1) mmol/L Chloride (98-107) mmol/L Carbon Dioxide (22-30) mmol/L Anion Gap mmol/L BUN (7-17) mg/dL Creatinine (0.52-1.04) mg/dL Est GFR (CKD-EPI)AfAm (>60 ml/min/1.73 sqM) Est GFR (CKD-EPI)NonAf (>60 ml/min/1.73 sqM) Glucose (74-99) mg/dL Plasma Lactic Acid Louis (0.7-2.0) mmol/L Calcium (8.4-10.2) mg/dL Total Bilirubin (0.2-1.3) mg/dL AST (14-36) U/L ALT (4-34) U/L Alkaline Phosphatase (38-126) U/L Total Protein (6.3-8.2) g/dL Albumin (3.5-5.0) g/dL Urine Color Colorless Urine Appearance Clear (Clear) Urine pH 6.5 (5.0-8.0) Ur Specific [place] 1.003 (1.001-1.035) Urine Protein Negative (Negative) Urine Glucose (UA) Negative (Negative) Urine Ketones Negative (Negative) Urine Blood Negative (Negative) Urine Nitrite Negative (Negative) Urine Bilirubin Negative (Negative) Urine Urobilinogen <2.0 (<2.0) mg/dL Ur Leukocyte Esterase Negative (Negative) Urine HCG, Qual Not Detected (Not Detectd) Disposition Clinical Impression: Abdominal pain Disposition: HOME SELF-CARE Condition: Stable Instructions (If sedation given, give patient instructions): Abdominal Pain (ED) Additional Instructions: Take Zofran and ibuprofen/Tylenol as needed for nausea and pain. Follow-up with PCP Is patient prescribed a controlled substance at d/c from ED?: No Referrals: None,Stated [Primary Care Provider] - 1-2 days Kathy Camara DO [Doctor of Osteopathic Medicine] - 1-2 days Time of Disposition: 23:11
[2024-03-10 21:11] LABS: Basophils % (A) 1 %; Eosinophils # (A) 0.2 k/uL (0-0.7); Eosinophils % (A) 3 %; HCT 40.8 % (34.0-46.0); HGB 14.2 gm/dL (11.4-16.0); Lymphocytes # (A) 2.2 k/uL (1.0-4.8); Lymphocytes % (A) 37 %; MCH 31.7 pg (25.0-35.0); MCHC 34.9 g/dL (31.0-37.0); MCV 90.9 fL (80.0-100.0); Mean Platelet Volume 8.4; Monocytes # (A) 0.3 k/uL (0-1.0); Monocytes % (A) 5 %; Neutrophils # (A) 3.1 k/uL (1.3-7.7); Neutrophils % (A) 52 %; Platelet Count 221 k/uL (150-450); RBC 4.48 m/uL (3.80-5.40); RDW 13.1 % (11.5-15.5)
[2024-03-10 21:21] LABS: ALT 12 U/L (4-34); AST 26 U/L (14-36); African American GFR (CKD) >90 (>60 ml/min/1.73 sqM); Albumin 4.3 g/dL (3.5-5.0); Alkaline Phosphatase 65 U/L (38-126); Anion Gap 9 mmol/L; Blood Urea Nitrogen 3 mg/dL (7-17); Calcium 9.5 mg/dL (8.4-10.2); Carbon Dioxide 24 mmol/L (22-30); Chloride 110 mmol/L (98-107); Glucose 95 mg/dL (74-99); Non-African American GFR(CKD) >90 (>60 ml/min/1.73 sqM); Potassium 3.9 mmol/L (3.5-5.1); Sodium 143 mmol/L (137-145); Total Bilirubin 0.5 mg/dL (0.2-1.3); Total Protein 6.8 g/dL (6.3-8.2)
[2024-03-10] MEDS: ACETAMINOPHEN TAB 325 MG TAB PO STA (21:25)
[2024-03-10 21:37] LABS: Appearance,Urine Clear (Clear); Bilirubin,Urine Negative (Negative); Blood,Urine Negative (Negative); Color,Urine Colorless; Glucose,Urine (UA) Negative (Negative); Ketones,Urine Negative (Negative); Leukocyte Esterase,Urine Negative (Negative); Nitrite,Urine Negative (Negative); PH, Urine 6.5 (5.0-8.0); Protein,Urine Negative (Negative); Specific Gravity,Urine 1.003 (1.001-1.035); Urobilinogen,Urine <2.0 mg/dL (<2.0)
--- NOTE | 2024-03-10 22:08 | US ---
EXAMINATION TYPE: US transvaginal DATE OF EXAM: 03/10/2024 COMPARISON: NONE CLINICAL INDICATION: Female, 29 years old with history of pelvic pain; Pain TECHNIQUE: Transvaginal (TV). EXAM MEASUREMENTS: Uterus: 6.2 x 2.6 x 4.6 cm Endometrial Stripe: .3 cm Right Ovary: 3.2 x 1.9 x 1.5 cm 1. Uterus: Anteverted IUD visualized 2. Endometrium: wnl 3. Right Ovary: wnl 4. Left Ovary: Obscured by overlying bowel gas Spectral, color and waveform doppler imaging shows good arterial and venous flow within the right o vary; there is no evidence for ovarian torsion. 5. Bilateral Adnexa: wnl 6. Posterior cul-de-sac: wnl IMPRESSION: 1. No evidence for acute process. 2. Appropriate arterial and venous spectral waveforms right ovary. Left ovary was not visualized. 3. IUD in appropriate position.
[2024-03-10] MEDS: ONDANSETRON 4 MG ODT STARTER PACK 2 TAB BTL PO STA (23:38)
[2024-03-10 23:39] VITALS: BP 143/91; RESP 18
== END 2024-03-10 23:39 | disposition home or self-care (01) ==
LOC: EC 19:27
DX: R10.30 Lower abdominal pain, unspecified (principal)
CPT/HCPCS: 36415; 76830; 80053; 81003; 81025; 83605; 85025; 93976; 99284

== ENCOUNTER 2024-04-26 20:45 | Emergency (ER) | payer OTHER ==
[2024-04-26 20:54] VITALS: RESP 18
[2024-04-26 21:18] LABS: Basophils % (A) 0 %; Eosinophils # (A) 0.2 k/uL (0-0.7); Eosinophils % (A) 2 %; HCT 42.9 % (34.0-46.0); HGB 15.2 gm/dL (11.4-16.0); Lymphocytes % (A) 14 %; MCH 32.3 pg (25.0-35.0); MCHC 35.5 g/dL (31.0-37.0); Mean Platelet Volume 8.1; Monocytes # (A) 0.6 k/uL (0-1.0); Monocytes % (A) 4 %; Neutrophils # (A) 11.1 k/uL (1.3-7.7); Neutrophils % (A) 79 %; Platelet Count 266 k/uL (150-450); RBC 4.72 m/uL (3.80-5.40); WBC 14.1 k/uL (3.8-10.6)
[2024-04-26 21:28] LABS: ALT 14 U/L (4-34); African American GFR (CKD) >90 (>60 ml/min/1.73 sqM); Albumin 4.5 g/dL (3.5-5.0); Amylase 48 U/L (30-110); Anion Gap 8 mmol/L; Blood Urea Nitrogen 9 mg/dL (7-17); Calcium 9.5 mg/dL (8.4-10.2); Carbon Dioxide 22 mmol/L (22-30); Chloride 108 mmol/L (98-107); Glucose 88 mg/dL (74-99); Lipase 75 U/L (23-300); Non-African American GFR(CKD) >90 (>60 ml/min/1.73 sqM); Sodium 138 mmol/L (137-145); Total Bilirubin 1.3 mg/dL (0.2-1.3); Total Protein 7.5 g/dL (6.3-8.2)
[2024-04-26 21:33] LABS: AST 31 U/L (14-36); Alkaline Phosphatase 98 U/L (38-126); Potassium 3.9 mmol/L (3.5-5.1)
--- NOTE | 2024-04-26 21:33 | XR ---
EXAMINATION TYPE: XR KUB DATE OF EXAM: 04/26/2024 9:25 PM CLINICAL INDICATION: Female, 29 years old with history of abdominal pain; [facility] COMPARISON: None. TECHNIQUE: One radiographic view of the abdomen was obtained. FINDINGS: The bowel gas pattern is nonspecific without dilated loops of small or large bowel. . Fecal material and gas are demonstrated throughout the colon and rectum. There is no evidence for organomegaly or pneumoperitoneum. The osseous structures are intact. No ab normal calcifications are present. IUD present. IMPRESSION: Nonspecific bowel gas pattern without radiographic evidence for acute process. [facility], , 04/26/2024 9:31 PM
--- NOTE | 2024-04-26 21:47 | ED ---
Female Urogenital HPI - General Source: patient Mode of arrival: ambulatory <Florencia Luque - Last Filed: 04/26/24 21:46> <Oniel Bey - Last Filed: 04/26/24 23:51> - General Chief complaint: Urogenital Stated complaint: Kidney Infection Time Seen by Provider: 04/26/24 21:46 - History of Present Illness Initial comments: 29-year-old female presenting with chief complaint of left-sided flank pain. This does wrap around into the abdomen. Is having some discomfort with urination as well as nausea and vomiting. Was seen at urgent care and told to come here. (Florencia Luque) Patient was seen in urgent care and sent to the emergency department with concern for pyelonephritis. She has had left-sided flank pain with dysuria and urinary frequency. She has had some nausea and vomiting. No fever. Patient denies history of kidney stones or renal colic. She denies hematuria. (Oniel Bey) - Related Data Home Medications Medication Instructions Recorded Confirmed Albuterol Inhaler [Ventolin Hfa 2 puff INHALATION RT-Q6H PRN 12/20/22 12/20/22 Inhaler] Loratadine [Claritin] 10 mg PO DAILY PRN 12/20/22 12/20/22 Previous Rx's Medication Instructions Recorded Cephalexin [Keflex] 500 mg PO TID-W/MEALS #30 cap 04/26/24 Ibuprofen [Motrin] 600 mg PO Q8HR PRN #24 tab 04/26/24 Ondansetron Odt [Zofran Odt] 4 mg PO Q8HR PRN #10 tab 04/26/24 Allergies Allergy/AdvReac Type Severity Reaction Status Date / Time No Known Allergies Allergy Verified 04/26/24 20:55 Review of Systems ROS Other: All systems not noted in ROS Statement are negative. <Florencia Luque - Last Filed: 04/26/24 21:46> ROS Other: All systems not noted in ROS Statement are negative. <Oniel Bey - Last Filed: 04/26/24 23:51> ROS Statement: Those systems with pertinent positive or pertinent negative responses have been documented in the HPI. Past Medical History Past Medical History: Asthma, Osteoarthritis (OA) Additional Past Medical History / Comment(s): Personality disorder-Border Line Personality Disorder; severe preeclampsia with her first with delivery at 34 weeks. History of Any Multi-Drug Resistant Organisms: None Reported Past Surgical History: Orthopedic Surgery Additional Past Surgical History / Comment(s): orthopedic surgery on right foot Past Anesthesia/Blood Transfusion Reactions: No Reported Reaction Past Psychological History: ADD/ADHD, Anxiety, Depression, PTSD Smoking Status: Never smoker Past Alcohol Use History: Occasional Past Drug Use History: None Reported - Past Family History Mother Family Medical History: Asthma Additional Family Medical History / Comment(s): ovarian cysts Father Family Medical History: Unable to Obtain <Florencia Luque - Last Filed: 04/26/24 21:46> General Exam <Florencia Luque - Last Filed: 04/26/24 21:46> General appearance: alert, in no apparent distress Head exam: Present: atraumatic, normocephalic Eye exam: Present: normal appearance, PERRL ENT exam: Present: normal exam Neck exam: Present: normal inspection. Absent: tenderness, meningismus Respiratory exam: Present: normal lung sounds bilaterally. Absent: respiratory distress, wheezes Cardiovascular Exam: Present: regular rate, normal rhythm GI/Abdominal exam: Present: soft. Absent: distended, tenderness Extremities exam: Present: normal inspection Back exam: Present: CVA tenderness (L) Neurological exam: Present: alert, oriented X3 Psychiatric exam: Present: normal affect, normal mood Skin exam: Present: warm, dry, intact <Oniel Bey - Last Filed: 04/26/24 23:51> - General Exam Comments Initial Comments: Visual Physical Exam Vital signs reviewed General: Well-appearing, nontoxic, no acute distress. Head: Normocephalic, atraumatic Eyes: PERRLA, EOMI ENT: Airway patent Chest: Nonlabored breathing Skin: No visual rash, normal skin tone Neuro: Alert and oriented 3 Musculoskeletal: No gross abnormalities (Florencia Luque) Course Vital Signs 04/26/24 04/26/24 20:50 23:43 Temperature 98.6 F 98.1 F Pulse Rate 102 H 89 Respiratory 18 18 Rate Blood Pressure 154/87 151/107 O2 Sat by Pulse 100 98 Oximetry Medical Decision Making - Lab Data Result diagrams: 04/26/24 21:08 04/26/24 21:08 <Florencia Luque - Last Filed: 04/26/24 21:46> - Lab Data Result diagrams: 04/26/24 21:08 04/26/24 21:08 <Oniel Bey Nellie - Last Filed: 04/26/24 23:51> - Medical Decision Making I performed the quick note portion of this visit, electronically signed Florencia Luque PA-C (Florencia Luque) Was pt. sent in by a medical professional or institution (AISHA Nugent, SCREW MACHINE TOOL SETTER, urgent care, hospital, or usp...) When possible be specific @ -No Did you speak to anyone other than the patient for history (EMS, parent, family, police, friend...)? What history was obtained from this source @ -No Did you review nursing and triage notes (agree or disagree)? Why? @ -I reviewed and agree with nursing and triage notes Were old charts reviewed (outside hosp., previous admission, EMS record, old EKG, old radiological studies, urgent care reports/EKG's, usp records)? Report findings @ -No old charts were reviewed Differential Abdominal Pain Women: Appendicitis, Cholecystitis, diverticulosis, ischemic bowel, pancreatitis, hepatitis, UTI, gastroenteritis, AAA, incarcerated hernia, bowel obstruction, constipation, inflammatory bowel, hepatitis, peptic ulcer disease, splenic infarction, perforated viscus, vulvitis, ovarian torsion, PID, kidney stone, placenta abruption, this is not meant to be an all-inclusive list EKG interpreted by me (3pts min.). @ -As above X-rays interpreted by me (1pt min.). @ -KUB negative for obstruction, CT interpreted by me (1pt min.). @ -None done U/S interpreted by me (1pt. min.). @ -None done What testing was considered but not performed or refused? (CT, X-rays, U/S, labs)? Why? @ -None What meds were considered but not given or refused? Why? @ -None Did you discuss the management of the patient with other professionals (professionals i.e. AISHA Nugent, SCREW MACHINE TOOL SETTER, lab, RT, psych nurse, social work faculty member, lithographer helper, teacher, fare enforcement officer, manager case management)? Give summary @ -No Was smoking cessation discussed for >3mins.? @ -No Was critical care preformed (if so, how long)? @ -No Were there social determinants of health that impacted care today? How? (Homelessness, low income, unemployed, alcoholism, drug addiction, transportation, low edu. Level, literacy, decrease access to med. care, longterm, rehab)? @ -No Was there de-escalation of care discussed even if they declined (Discuss DNR or withdrawal of care, Hospice)? DNR status @ -No What co-morbidities impacted this encounter? (DM, HTN, Smoking, COPD, CAD, Ca ncer, CVA, ARF, Chemo, Hep., AIDS, mental health diagnosis, sleep apnea, morbid obesity)? @ -None Was patient admitted / discharged? Hospital course, mention meds given and route, prescriptions, significant lab abnormalities, going to OR and other pertinent info. @ 29-year-old female presenting for evaluation of dysuria, urinary frequency, flank pain. Patient does have left CVA tenderness. She has had associated nausea and vomiting, there is concern for pyelonephritis. She has an elevated w freddie blood cell count at 14. Urinalysis is consistent with pyelonephritis. Urine culture is obtained. Patient is given 2 g of IV Rocephin, IV fluids, antiemetics, pain medication. My plan was to admit this patient for treatment of pyelonephritis. Patient states she has 2 young children and would prefer discharge. We discussed strict return parameters including fever, vomiting, worsening pain any lightheadedness or dizziness. Patient prescribed Keflex awaiting culture results. She is also given pain medication and nausea medication. Undiagnosed new problem with uncertain prognosis? @ -No Drug Therapy requiring intensive monitoring for toxicity (Heparin, Nitro, Insulin, Cardizem)? @ -No Were any procedures done? @ -No Diagnosis/symptom? @ -Pyelonephritis Acute, or Chronic, or Acute on Chronic? @ -Acute Uncomplicated (without systemic symptoms) or Complicated (systemic symptoms)? @ -Default Side effects of treatment? @ -No Exacerbation, Progression, or Severe Exacerbation? @ -No Poses a threat to life or bodily function? How? (Chest pain, [place], [place], pneumonia, PE, COPD, DKA, ARF, appy, cholecystitis, CVA, Diverticulitis, Homicidal, Suicidal, threat to staff... and all critical care pts) @ -Moderate risk, sepsis (Oniel Bey) - Lab Data Lab Results 04/26/24 04/26/24 04/26/24 Range/Units 21:08 21:08 21:08 WBC 14.1 H (3.8-10.6) k/uL RBC 4.72 (3.80-5.40) m/uL Hgb 15.2 (11.4-16.0) gm/dL Hct 42.9 (34.0-46.0) % MCV 91.0 (80.0-100.0) fL MCH 32.3 (25.0-35.0) pg MCHC 35.5 (31.0-37.0) g/dL RDW 13.0 (11.5-15.5) % Plt Count 266 (150-450) k/uL MPV 8.1 Neutrophils % 79 % Lymphocytes % 14 % Monocytes % 4 % Eosinophils % 2 % Basophils % 0 % Neutrophils # 11.1 H (1.3-7.7) k/uL Lymphocytes # 2.0 (1.0-4.8) k/uL Monocytes # 0.6 (0-1.0) k/uL Eosinophils # 0.2 (0-0.7) k/uL Basophils # 0.0 (0-0.2) k/uL Sodium 138 (137-145) mmol/L Potassium 3.9 (3.5-5.1) mmol/L Chloride 108 H (98-107) mmol/L Carbon Dioxide 22 (22-30) mmol/L Anion Gap 8 mmol/L BUN 9 (7-17) mg/dL Creatinine 0.74 (0.52-1.04) mg/dL Est GFR (CKD-EPI)AfAm >90 (>60 ml/min/1.73 sqM) Est GFR (CKD-EPI)NonAf >90 (>60 ml/min/1.73 sqM) Glucose 88 (74-99) mg/dL Plasma Lactic Acid Louis (0.7-2.0) mmol/L Calcium 9.5 (8.4-10.2) mg/dL Total Bilirubin 1.3 (0.2-1.3) mg/dL AST 31 (14-36) U/L ALT 14 (4-34) U/L Alkaline Phosphatase 98 (38-126) U/L Total Protein 7.5 (6.3-8.2) g/dL Albumin 4.5 (3.5-5.0) g/dL Amylase 48 (30-110) U/L Lipase 75 (23-300) U/L Urine Color Yellow Urine Appearance Turbid H (Clear) Urine pH 6.5 (5.0-8.0) Ur Specific [place] 1.019 (1.001-1.035) Urine Protein 2+ H (Negative) Urine Glucose (UA) Negative (Negative) Urine Ketones Negative (Negative) Urine Blood Small H (Negative) Urine Nitrite Positive H (Negative) Urine Bilirubin Negative (Negative) Urine Urobilinogen <2.0 (<2.0) mg/dL Ur Leukocyte Esterase Large H (Negative) Urine RBC 16 H (0-5) /hpf Urine WBC >182 H (0-5) /hpf Urine WBC Clumps Many H (None) /hpf Urine Bacteria Moderate H (None) /hpf Urine Mucus Many H (None) /hpf Urine Yeast (Budding) Many H (None) /hpf Urine HCG, Qual (Not Detectd) 04/26/24 04/26/24 Range/Units 21:08 21:08 WBC (3.8-10.6) k/uL RBC (3.80-5.40) m/uL Hgb (11.4-16.0) gm/dL Hct (34.0-46.0) % MCV (80.0-100.0) fL MCH (25.0-35.0) pg MCHC (31.0-37.0) g/dL RDW (11.5-15.5) % Plt Count (150-450) k/uL MPV Neutrophils % % Lymphocytes % % Monocytes % % Eosinophils % % Basophils % % Neutrophils # (1.3-7.7) k/uL Lymphocytes # (1.0-4.8) k/uL Monocytes # (0-1.0) k/uL Eosinophils # (0-0.7) k/uL Basophils # (0-0.2) k/uL Sodium (137-145) mmol/L Potassium (3.5-5.1) mmol/L Chloride (98-107) mmol/L Carbon Dioxide (22-30) mmol/L Anion Gap mmol/L BUN (7-17) mg/dL Creatinine (0.52-1.04) mg/dL Est GFR (CKD-EPI)AfAm (>60 ml/min/1.73 sqM) Est GFR (CKD-EPI)NonAf (>60 ml/min/1.73 sqM) Glucose (74-99) mg/dL Plasma Lactic Acid Louis 1.1 (0.7-2.0) mmol/L Calcium (8.4-10.2) mg/dL Total Bilirubin (0.2-1.3) mg/dL AST (14-36) U/L ALT (4-34) U/L Alkaline Phosphatase (38-126) U/L Total Protein (6.3-8.2) g/dL Albumin (3.5-5.0) g/dL Amylase (30-110) U/L Lipase (23-300) U/L Urine Color Urine Appearance (Clear) Urine pH (5.0-8.0) Ur Specific [place] (1.001-1.035) Urine Protein (Negative) Urine Glucose (UA) (Negative) Urine Ketones (Negative) Urine Blood (Negative) Urine Nitrite (Negative) Urine Bilirubin (Negative) Urine Urobilinogen (<2.0) mg/dL Ur Leukocyte Esterase (Negative) Urine RBC (0-5) /hpf Urine WBC (0-5) /hpf Urine WBC Clumps (None) /hpf Urine Bacteria (None) /hpf Urine Mucus (None) /hpf Urine Yeast (Budding) (None) /hpf Urine HCG, Qual Not Detected (Not Detectd) Disposition <Florencia Luque - Last Filed: 04/26/24 21:46> Is patient prescribed a controlled substance at d/c from ED?: No Time of Disposition: 23:50 <Oniel Bey - Last Filed: 04/26/24 23:51> Clinical Impression: Pyelonephritis Disposition: HOME SELF-CARE Condition: Fair Instructions (If sedation given, give patient instructions): Urinary Tract Infection in Women (ED), Kidney Infection (ED) Prescriptions: Cephalexin [Keflex] 500 mg PO TID-W/MEALS #30 cap Ibuprofen [Motrin] 600 mg PO Q8HR PRN #24 tab PRN Reason: Pain Ondansetron Odt [Zofran Odt] 4 mg PO Q8HR PRN #10 tab PRN Reason: Vomiting Referrals: None,Stated [Primary Care Provider] - 1-2 days Michael Flores MD [STAFF PHYSICIAN] - 1-2 days
[2024-04-26 22:01] LABS: Appearance,Urine Turbid (Clear); Bacteria,Urine Moderate /hpf; Bilirubin,Urine Negative (Negative); Blood,Urine Small (Negative); Budding Yeast,Urine Many /hpf; Color,Urine Yellow; Glucose,Urine (UA) Negative (Negative); Ketones,Urine Negative (Negative); Leukocyte Esterase,Urine Large (Negative); Mucus,Urine Many /hpf; Nitrite,Urine Positive (Negative); PH, Urine 6.5 (5.0-8.0); Protein,Urine 2+ (Negative); RBC,Urine 16 /hpf (0-5); Specific Gravity,Urine 1.019 (1.001-1.035); Urobilinogen,Urine <2.0 mg/dL (<2.0); WBC,Urine >182 /hpf (0-5)
[2024-04-26] MEDS: ONDANSETRON 4 MG/2 ML VIAL IVP STA (22:20)
[2024-04-26] MEDS: SODIUM CHLORIDE 0.9% 1,000 ML IV ONE (22:20)
[2024-04-26] MEDS: KETOROLAC 15 MG/ML 1 ML VIAL IVP STA (22:21)
[2024-04-26 23:44] VITALS: BP 151/107; PULSE 89; TEMP 98.1
[2024-04-27] MEDS: IBUPROFEN 600 MG STARTER PACK 4 TAB BTL PO STA (00:04)
[2024-04-27] MEDS: ONDANSETRON 4 MG ODT STARTER PACK 2 TAB BTL PO STA (00:04)
== END 2024-04-27 00:10 | disposition home or self-care (01) ==
LOC: EC 20:45
DX: N10 Acute pyelonephritis (principal)
CPT/HCPCS: 36415; 74018; 80053; 81001; 81025; 82150; 83605; 83690; 85025; 87077; 87086; 87186; 96361; 96365; 96375; 99284

== ENCOUNTER 2024-05-01 15:47 | Emergency (ER) | payer OTHER ==
[2024-05-01 16:03] VITALS: RESP 20
--- NOTE | 2024-05-01 16:31 | ED ---
Recheck HPI - General Source: patient, RN notes reviewed Mode of arrival: ambulatory Limitations: no limitations <Summer Merida - Last Filed: 05/01/24 16:30> - General Source: patient, RN notes reviewed Mode of arrival: ambulatory Limitations: no limitations <Talib Moe - Last Filed: 05/01/24 19:46> - General Chief Complaint: Recheck/Abnormal Lab/Rx Stated Complaint: Recheck kidney issue Time Seen by Provider: 05/01/24 16:30 - History of Present Illness Initial Comments: Quick note: 29-year-old female presenting to the ER for pyelonephritis recheck. Patient was seen here on 04-26-2024 and diagnosed with pyelonephritis. Patient refused admission at that time and was discharged with Keflex after 2 g IV Rocephin. Patient states she has not been able to follow-up with a PCP and is presented today for reevaluation. She states she still feels "out of it". Denies any known fevers. States that she has a couple days left of Keflex. (Summer Merida) 29-year-old female presents emergency department for recheck of her pyelonephritis. She states that she was diagnosed on 26 April with pyelonephritis she states they recommended her to be admitted but she went home on oral antibiotics. States that she still feels off but is feeling greatly improved and has no pain. She states she does not have a PCP so she presented here for recheck. (Talib Moe) - Related Data Home Medications Medication Instructions Recorded Confirmed Albuterol Inhaler [Ventolin Hfa 2 puff INHALATION RT-Q6H PRN 12/20/22 12/20/22 Inhaler] Loratadine [Claritin] 10 mg PO DAILY PRN 12/20/22 12/20/22 Previous Rx's Medication Instructions Recorded Cephalexin [Keflex] 500 mg PO TID-W/MEALS #30 cap 04/26/24 Ibuprofen [Motrin] 600 mg PO Q8HR PRN #24 tab 04/26/24 Ondansetron Odt [Zofran Odt] 4 mg PO Q8HR PRN #10 tab 04/26/24 Allergies Allergy/AdvReac Type Severity Reaction Status Date / Time No Known Allergies Allergy Verified 04/26/24 20:55 Review of Systems ROS Other: All systems not noted in ROS Statement are negative. <Summer Merida - Last Filed: 05/01/24 16:30> ROS Other: All systems not noted in ROS Statement are negative. <Talib Moe - Last Filed: 05/01/24 19:46> ROS Statement: Those systems with pertinent positive or pertinent negative responses have been documented in the HPI. Past Medical History Past Medical History: Asthma, Osteoarthritis (OA) Additional Past Medical History / Comment(s): Personality disorder-Border Line Personality Disorder; severe preeclampsia with her first with delivery at 34 weeks. History of Any Multi-Drug Resistant Organisms: None Reported Past Surgical History: Orthopedic Surgery Additional Past Surgical History / Comment(s): orthopedic surgery on right foot Past Anesthesia/Blood Transfusion Reactions: No Reported Reaction Past Psychological History: ADD/ADHD, Anxiety, Depression, PTSD Smoking Status: Never smoker Past Alcohol Use History: Occasional Past Drug Use History: None Reported - Past Family History Mother Family Medical History: Asthma Additional Family Medical History / Comment(s): ovarian cysts Father Family Medical History: Unable to Obtain <Summer Merida - Last Filed: 05/01/24 16:30> General Exam Limitations: no limitations <Jean CarlosSummer cheema - Last Filed: 05/01/24 16:30> General appearance: alert, in no apparent distress Head exam: Present: atraumatic, normocephalic, normal inspection Eye exam: Present: normal appearance, PERRL, EOMI. Absent: scleral icterus, conjunctival injection, periorbital swelling ENT exam: Present: normal exam, mucous membranes moist Neck exam: Present: normal inspection, full ROM. Absent: tenderness, meningismus, lymphadenopathy Respiratory exam: Present: normal lung sounds bilaterally. Absent: respiratory distress, wheezes, rales, rhonchi, stridor Cardiovascular Exam: Present: regular rate, normal rhythm, normal heart sounds. Absent: systolic murmur, diastolic murmur, rubs, gallop, clicks GI/Abdominal exam: Present: soft, normal bowel sounds. Absent: distended, tenderness, guarding, rebound, rigid <Talib Moe - Last Filed: 05/01/24 19:46> - General Exam Comments Initial Comments: Visual Physical Exam Vital signs reviewed General: Well-appearing, nontoxic, no acute distress. Head: Normocephalic, atraumatic Eyes: PERRLA, EOMI ENT: Airway patent Chest: Nonlabored breathing Skin: No visual rash, normal skin tone Neuro: Alert and oriented 3 Musculoskeletal: No gross abnormalities (Summer Merida) Course Vital Signs 05/01/24 16:00 Temperature 98.5 F Pulse Rate 85 Respiratory 20 Rate Blood Pressure 159/100 O2 Sat by Pulse 99 Oximetry Medical Decision Making <Summer Merida - Last Filed: 05/01/24 16:30> - Lab Data Result diagrams: 05/01/24 17:43 05/01/24 17:43 <Talib Moe - Last Filed: 05/01/24 19:46> - Medical Decision Making I performed the quick note portion of this chart. Electronically signed by Summer Merida PA-C (Summer Merida) Was pt. sent in by a medical professional or institution ([facility], [employer], urgent care, hospital, or long-term...) When possible be specific @ -No Did you speak to anyone other than the patient for history (EMS, parent, family, police, friend...)? What history was obtained from this source @ -No Did you review nursing and triage notes (agree or disagree)? Why? @ -I reviewed and agree with nursing and triage notes Were old charts reviewed (outside hosp., previous admission, EMS record, old EKG, old radiological studies, urgent care reports/EKG's, long-term records)? Report findings @ -Reviewed labs urinalysis urine culture from 04/26 Differential Diagnosis (chest pain, altered mental status, abdominal pain women, abdominal pain men, vaginal bleeding, weakness, fever, dyspnea, syncope, headache, dizziness, GI bleed, back pain, seizure, CVA, palpatations, mental health, musculoskeletal)? @ -Differential Abdominal Pain Women: Appendicitis, Cholecystitis, diverticulosis, ischemic bowel, pancreatitis, hepatitis, UTI, gastroenteritis, AAA, incarcerated hernia, bowel obstruction, constipation, inflammatory bowel, hepatitis, peptic ulcer disease, splenic infarction, perforated viscus, vulvitis, ovarian torsion, PID, kidney stone, placenta abruption, this is not meant to be an all-inclusive list EKG interpreted by me (3pts min.). @ -None X-rays interpreted by me (1pt min.). @ -None done CT interpreted by me (1pt min.). @ -None done U/S interpreted by me (1pt. min.). @ -None done What testing was considered but not performed or refused? (CT, X-rays, U/S, labs)? Why? @ -None What meds were considered but not given or refused? Why? @ -None Did you discuss the management of the patient with other professionals (professionals i.e. , PA, PUZZLE ASSEMBLER, lab, RT, psych nurse, social science teacher, sql report developer, teacher, corporate compliance officer, child welfare caseworker)? Give summary @ -No Was smoking cessation discussed for >3mins.? @ -No Was critical care preformed (if so, how long)? @ -No Were there social determinants of health that impacted care today? How? (Homelessness, low income, unemployed, alcoholism, drug addiction, transportation, low edu. Level, literacy, decrease access to med. care, fpc, rehab)? @ -No Was there de-escalation of care discussed even if they declined (Discuss DNR or withdrawal of care, Hospice)? DNR status @ -No What co-morbidities impacted this encounter? (DM, HTN, Smoking, COPD, CAD, Cancer, CVA, ARF, Chemo, Hep., AIDS, mental health diagnosis, sleep apnea, morbid obesity)? @ -None Was patient admitted / discharged? Hospital course, mention meds given and route, prescriptions, significant lab abnormalities, going to OR and other pertinent info. @ -Discharge patient laboratory studies urinalysis unremarkable patient feels improved will be discharged in stable condition. Undiagnosed new problem with uncertain prognosis? @ -No Drug Therapy requiring intensive monitoring for toxicity (Heparin, Nitro, Insulin, Cardizem)? @ -No Were any procedures done? @ -No Diagnosis/symptom? @ -Recheck pyelonephritis, well check Acute, or Chronic, or Acute on Chronic? @ -Acute Uncomplicated (without systemic symptoms) or Complicated (systemic symptoms)? @ -Uncomplicated Side effects of treatment? @ -No Exacerbation, Progression, or Severe Exacerbation? @ -No Poses a threat to life or bodily function? How? (Chest pain, USA, SC, pneumonia, PE, COPD, DKA, ARF, appy, cholecystitis, CVA, Diverticulitis, Homicidal, Suicidal, threat to staff... and all critical care pts) @ -No (Talib Moe) - Lab Data Lab Results 05/01/24 05/01/24 05/01/24 Range/Units 16:05 17:43 17:43 WBC 7.8 (3.8-10.6) k/uL RBC 4.43 (3.80-5.40) m/uL Hgb 14.3 (11.4-16.0) gm/dL Hct 41.9 (34.0-46.0) % MCV 94.5 (80.0-100.0) fL MCH 32.2 (25.0-35.0) pg MCHC 34.1 (31.0-37.0) g/dL RDW 13.2 (11.5-15.5) % Plt Count 231 (150-450) k/uL MPV 8.4 Neutrophils % 66 % Lymphocytes % 24 % Monocytes % 4 % Eosinophils % 4 % Basophils % 1 % Neutrophils # 5.1 (1.3-7.7) k/uL Lymphocytes # 1.9 (1.0-4.8) k/uL Monocytes # 0.3 (0-1.0) k/uL Eosinophils # 0.3 (0-0.7) k/uL Basophils # 0.0 (0-0.2) k/uL Sodium 140 (137-145) mmol/L Potassium 4.5 (3.5-5.1) mmol/L Chloride 105 (98-107) mmol/L Carbon Dioxide 25 (22-30) mmol/L Anion Gap 10 mmol/L BUN 4 L (7-17) mg/dL Creatinine 0.67 (0.52-1.04) mg/dL Est GFR (CKD-EPI)AfAm >90 (>60 ml/min/1.73 sqM) Est GFR (CKD-EPI)NonAf >90 (>60 ml/min/1.73 sqM) Glucose 79 (74-99) mg/dL Plasma Lactic Acid Louis (0.7-2.0) mmol/L Calcium 9.6 (8.4-10.2) mg/dL Total Bilirubin 0.8 (0.2-1.3) mg/dL AST 33 (14-36) U/L ALT 15 (4-34) U/L Alkaline Phosphatase 64 (38-126) U/L Total Protein 7.1 (6.3-8.2) g/dL Albumin 4.4 (3.5-5.0) g/dL Urine Color Colorless Urine Appearance Clear (Clear) Urine pH 7.5 (5.0-8.0) Ur Specific [place] 1.006 (1.001-1.035) Urine Protein Negative (Negative) Urine Glucose (UA) Negative (Negative) Urine Ketones Negative (Negative) Urine Blood Negative (Negative) Urine Nitrite Negative (Negative) Urine Bilirubin Negative (Negative) Urine Urobilinogen <2.0 (<2.0) mg/dL Ur Leukocyte Esterase Large H (Negative) Urine RBC 3 (0-5) /hpf Urine WBC 5 (0-5) /hpf Ur Squamous Epith Cells 2 (0-4) /hpf Urine Mucus Rare H (None) /hpf 05/01/24 Range/Units 17:43 WBC (3.8-10.6) k/uL RBC (3.80-5.40) m/uL Hgb (11.4-16.0) gm/dL Hct (34.0-46.0) % MCV (80.0-100.0) fL MCH (25.0-35.0) pg MCHC (31.0-37.0) g/dL RDW (11.5-15.5) % Plt Count (150-450) k/uL MPV Neutrophils % % Lymphocytes % % Monocytes % % Eosinophils % % Basophils % % Neutrophils # (1.3-7.7) k/uL Lymphocytes # (1.0-4.8) k/uL Monocytes # (0-1.0) k/uL Eosinophils # (0-0.7) k/uL Basophils # (0-0.2) k/uL Sodium (137-145) mmol/L Potassium (3.5-5.1) mmol/L Chloride (98-107) mmol/L Carbon Dioxide (22-30) mmol/L Anion Gap mmol/L BUN (7-17) mg/dL Creatinine (0.52-1.04) mg/dL Est GFR (CKD-EPI)AfAm (>60 ml/min/1.73 sqM) Est GFR (CKD-EPI)NonAf (>60 ml/min/1.73 sqM) Glucose (74-99) mg/dL Plasma Lactic Acid Louis 0.6 L (0.7-2.0) mmol/L Calcium (8.4-10.2) mg/dL Total Bilirubin (0.2-1.3) mg/dL AST (14-36) U/L ALT (4-34) U/L Alkaline Phosphatase (38-126) U/L Total Protein (6.3-8.2) g/dL Albumin (3.5-5.0) g/dL Urine Color Urine Appearance (Clear) Urine pH (5.0-8.0) Ur Specific [place] (1.001-1.035) Urine Protein (Negative) Urine Glucose (UA) (Negative) Urine Ketones (Negative) Urine Blood (Negative) Urine Nitrite (Negative) Urine Bilirubin (Negative) Urine Urobilinogen (<2.0) mg/dL Ur Leukocyte Esterase (Negative) Urine RBC (0-5) /hpf Urine WBC (0-5) /hpf Ur Squamous Epith Cells (0-4) /hpf Urine Mucus (None) /hpf Disposition <Summer Merida - Last Filed: 05/01/24 16:30> Is patient prescribed a controlled substance at d/c from ED?: No Time of Disposition: 19:39 <Talib Moe - Last Filed: 05/01/24 19:46> Clinical Impression: Well adult health check, Hx of pyelonephritis Disposition: HOME SELF-CARE Condition: Stable Additional Instructions: Please return to the Emergency Department if symptoms worsen or any other concerns. Referrals: None,Stated [Primary Care Provider] - 1-2 days
[2024-05-01 16:46] LABS: Appearance,Urine Clear (Clear); Bilirubin,Urine Negative (Negative); Blood,Urine Negative (Negative); Color,Urine Colorless; Glucose,Urine (UA) Negative (Negative); Ketones,Urine Negative (Negative); Leukocyte Esterase,Urine Large (Negative); Mucus,Urine Rare /hpf; Nitrite,Urine Negative (Negative); PH, Urine 7.5 (5.0-8.0); Protein,Urine Negative (Negative); RBC,Urine 3 /hpf (0-5); Specific Gravity,Urine 1.006 (1.001-1.035); Squamous Epithelial Cell,Urine 2 /hpf (0-4); Urobilinogen,Urine <2.0 mg/dL (<2.0); WBC,Urine 5 /hpf (0-5)
[2024-05-01 18:32] LABS: Basophils % (A) 1 %; Eosinophils # (A) 0.3 k/uL (0-0.7); Eosinophils % (A) 4 %; HCT 41.9 % (34.0-46.0); HGB 14.3 gm/dL (11.4-16.0); Lymphocytes # (A) 1.9 k/uL (1.0-4.8); Lymphocytes % (A) 24 %; MCH 32.2 pg (25.0-35.0); MCHC 34.1 g/dL (31.0-37.0); MCV 94.5 fL (80.0-100.0); Mean Platelet Volume 8.4; Monocytes # (A) 0.3 k/uL (0-1.0); Monocytes % (A) 4 %; Neutrophils # (A) 5.1 k/uL (1.3-7.7); Neutrophils % (A) 66 %; Platelet Count 231 k/uL (150-450); RBC 4.43 m/uL (3.80-5.40); RDW 13.2 % (11.5-15.5); WBC 7.8 k/uL (3.8-10.6)
[2024-05-01 18:45] LABS: ALT 15 U/L (4-34); African American GFR (CKD) >90 (>60 ml/min/1.73 sqM); Albumin 4.4 g/dL (3.5-5.0); Anion Gap 10 mmol/L; Blood Urea Nitrogen 4 mg/dL (7-17); Calcium 9.6 mg/dL (8.4-10.2); Carbon Dioxide 25 mmol/L (22-30); Chloride 105 mmol/L (98-107); Glucose 79 mg/dL (74-99); Non-African American GFR(CKD) >90 (>60 ml/min/1.73 sqM); Sodium 140 mmol/L (137-145); Total Bilirubin 0.8 mg/dL (0.2-1.3); Total Protein 7.1 g/dL (6.3-8.2)
[2024-05-01 18:53] LABS: AST 33 U/L (14-36); Alkaline Phosphatase 64 U/L (38-126); Potassium 4.5 mmol/L (3.5-5.1)
[2024-05-01 20:55] VITALS: BP 139/78; PULSE 79; TEMP 98.4
== END 2024-05-01 20:55 | disposition home or self-care (01) ==
LOC: EC 15:47
CPT/HCPCS: 36415; 80053; 81001; 83605; 85025; 99283